=== PATIENT | female | born 1970 | race Caucasian/White ===

== ENCOUNTER → 2018-05-19 11:59 | Outpatient (CLI) | payer BC, SELFPAY ==
--- NOTE | 2018-05-19 12:04 | RAD_ITS ---
STUDY: X-RAY - LUMBAR SPINE REASON FOR EXAM: Female, 48 years old. Fell down steps on her bottom. TECHNIQUE: 5 view(s) of the lumbar spine were obtained. COMPARISON: Sacrum and coccyx, May 19, 2018. FINDINGS: Normal lumbar lordosis. There is no substantial scoliosis. There is a normal alignment of the vertebrae. Normal vertebral bodies and endplates. Normal disc space heights. There is no evidence of acute fracture or loss of vertebral axial height. There is no demonstrated spondylolysis of the pars interarticulares. The soft tissue structures are unremarkable. RAD/L/S Spine Min 4 Views IMPRESSION: No acute abnormality of the lumbar spine. Electronically Signed: Rafael Mccoy DO at 18:25 EDT Tel [phone], Service support ,
--- NOTE | 2018-05-19 12:04 | RAD_ITS ---
STUDY: X-RAY - SACRUM/COCCYX REASON FOR EXAM: Female, 48 years old. Fell down steps on her bottom. TECHNIQUE: 3 view(s) of the sacrum and coccyx were obtained. COMPARISON: None. FINDINGS: Normal bilateral sacroiliac joints. Normal visualized sacral ala and fused sacral bodies. Normal sacrococcygeal junction with a normal angulation. Normal coccygeal segments. There is no visualized fracture or dislocation. The presacral soft tissue structures are unremarkable. RAD/Sacrum-Coccyx min 2 Views IMPRESSION: No visualized sacral or coccygeal fracture. Electronically Signed: Rafael Mccoy DO at 15:39 EDT Tel [phone], Service support ,
== END ==
PROVIDERS: Family Provider Family Medicine; PCP Family Medicine; Visit Provider Family Medicine
DX: M53.3 Sacrococcygeal disorders, not elsewhere classified (principal)
CPT/HCPCS: 72110; 72220

== ENCOUNTER → 2018-07-18 11:54 | Outpatient (CLI) | payer BC, SELFPAY | PROVIDERS: Family Provider Family Medicine; PCP Family Medicine; Visit Provider Obstetrics & Gynecology | DX: Z12.31 Encounter for screening mammogram for malignant neoplasm of breast (principal) | CPT/HCPCS: 77063; 77067 ==

== ENCOUNTER → 2019-03-28 | Outpatient (CLI) | payer BC, SELFPAY ==
--- NOTE | 2019-03-28 11:38 | RAD_ITS ---
STUDY: X-RAY - RIGHT HAND REASON FOR EXAM: Female, 49 years old. Pain. TECHNIQUE: 3 view(s) of the hand. COMPARISON: None. FINDINGS: Normal radiocarpal articulation. Normal distal radioulnar joint. Normal visualized carpal bones. Normal carpal articulations Normal carpometacarpal articulation of the thumb. Normal second through fifth carpometacarpal joints. Normal metacarpi. Normal metacarpophalangeal joint of the thumb. Normal interphalangeal joint of the thumb. Normal proximal and distal phalanges of the thumb. Normal metacarpophalangeal joints of the second through fifth fingers. Normal proximal and distal interphalangeal joints of the second through fifth fingers. Normal phalanges of the second through fifth fingers. The soft tissue structures are unremarkable. There is no acute fracture. RAD/Hand Min 3 Views IMPRESSION: Normal x-ray examination of the hand. Electronically Signed: Vasile Dudley MD at 21:40 EDT , Service support ,
[2019-03-28 14:27] LABS: T4 Total, Thyroxin 9.9 ug/dL (4.8-13.9)
== END | disposition home or self-care (01) ==
LOC: MTLAB 11:36
PROVIDERS: Family Provider Family Medicine; PCP Family Medicine; Referring Provider Family Medicine; Visit Provider Family Medicine
DX: E03.9 Hypothyroidism, unspecified (principal); M79.641 Pain in right hand
CPT/HCPCS: 36415; 73130; 84436; 84443

== ENCOUNTER → 2019-08-23 | Outpatient (CLI) | payer BC, SELFPAY ==
--- NOTE | 2019-08-23 12:37 | BI_ITS ---
MAMMOGRAPHY - BILATERAL SCREENING REASON FOR EXAM: Female, 49 years old. Routine annual screening examination. PERTINENT HISTORY: Mother with breast cancer. Grandmother with breast cancer. Bilateral breast implants. TECHNIQUE: Digital bilateral breast renaldo (3D mammographic acquisition) in the CC and MLO projections. 2-D mediolateral oblique (MLO) and craniocaudad (CC) views of both breasts were obtained. CAD: Full Field Digital Mammography with Computer Added Detection was performed. COMPARISON: Comparison is made with prior study July 18, 2018 and July 06, 2017. FINDINGS: Breast Composition: There are scattered areas of fibroglandular density. There are no dominant masses or suspicious calcifications. Stable appearance of the bilateral implants as well as the small bilateral axillary lymph nodes. No other significant abnormalities are identified. There has been no significant change since the prior study. BI/SCREEN MAMM (CAD) W/RENALDO BILAT IMPRESSION: Stable bilateral screening mammogram. Yearly follow-up mammogram recommended. (A) ASSESSMENT CATEGORY: BIRADS Category 2: Benign. A letter regarding these results will be sent to the patient by the facility within 30 days. Approximately 10% of breast cancers are not detected by mammography. A normal mammogram should not delay biopsy of a clinically suspicious abnormality. [id number] Electronically Signed: Iván Davison, at 15:20 EDT , Service support ,
== END | disposition home or self-care (01) ==
PROVIDERS: Family Provider Family Medicine; PCP Family Medicine; Referring Provider Obstetrics & Gynecology; Visit Provider Obstetrics & Gynecology
DX: Z12.31 Encounter for screening mammogram for malignant neoplasm of breast (principal)
CPT/HCPCS: 77063; 77067

== ENCOUNTER → 2019-08-25 | Outpatient (CLI) | payer BC, SELFPAY ==
--- NOTE | 2019-08-25 17:46 | MRI_ITS ---
STUDY: MRI BRAIN WITH AND WITHOUT CONTRAST REASON FOR EXAM: Female, 49 years old. Increased tremors TECHNIQUE: Standardized multiplanar fat and water weighted pulse sequences were obtained. IV Dotarem 15 was administered for the contrast portion of the examination. COMPARISON: None. FINDINGS: Normal size of the ventricles and extra-axial spaces for the patient's age. Normal white matter tracts of the supratentorial brain. There is no evidence for recent intracranial ischemia or other cause of cytotoxic edema on diffusion weighted imaging (DWI). Normal bilateral basal ganglia. Normal thalami. There is no extra-axial fluid accumulation. Normal flow voids within the major intracranial circulation suggesting patency by spin echo criteria. Normal venous enhancement. There is no enhancing intra-axial or extra-axial abnormality. Normal sella turcica, pituitary gland, infundibular stalk, optic chiasm and hypothalamus. Normal tectal plate and pineal gland. Normal midbrain, kimmie and medulla. Normal cerebellum. Normal basal cisterns. Normal bilateral temporal bones. Normal bilateral internal auditory canals. No demonstrated orbital abnormality, within the constraints of a routine brain study. Normal visualized paranasal sinuses. Normal calvarium and skull base. Normal visualized soft tissue structures. Normal visualized upper cervical spine. MRI/Brain W/WO Contrast IMPRESSION: Normal unenhanced and enhanced MRI of the brain. Electronically Signed: Lamine Chicas MD at 20:10 EDT , Service support ,
== END | disposition home or self-care (01) ==
LOC: MRI 16:49
PROVIDERS: Family Provider Family Medicine; PCP Family Medicine; Referring Provider Psychiatry & Neurology Neurology; Visit Provider Psychiatry & Neurology Neurology
DX: R56.9 Unspecified convulsions (principal)
CPT/HCPCS: 70553; A9575

== ENCOUNTER → 2020-10-11 11:44 | Outpatient (CLI) | payer BC, SELFPAY ==
[2020-02-26 12:46] VITALS: BMI 27.6
--- NOTE | 2020-10-11 12:05 | BI_ITS ---
MAMMOGRAPHY - BILATERAL SCREENING REASON FOR EXAM: Female, 50 years old. Routine annual screening examination. PERTINENT HISTORY: Mother with breast cancer. Grandmother with breast cancer. Bilateral implants. TECHNIQUE: Digital bilateral breast renaldo (3D mammographic acquisition) in the CC and MLO projections. 2-D mediolateral oblique (MLO) and craniocaudad (CC) views of both breasts were obtained. CAD: Full Field Digital Mammography with Computer Added Detection was performed. COMPARISON: Comparison is made with prior study dated 08/23/2019 and 07/18/2018. FINDINGS: Breast Composition: There are scattered areas of fibroglandular density. There are no dominant masses or suspicious calcifications. Stable appearance of the bilateral breast implants. No other significant abnormalities are identified. There has been no significant change since the prior study. BI/SCREEN MAMM (CAD) W/RENALDO BILAT IMPRESSION: Stable bilateral screening mammogram. Yearly follow-up mammogram recommended. (A) ASSESSMENT CATEGORY: BIRADS Category 2: Benign. A letter regarding these results will be sent to the patient by the facility within 30 days. Approximately 10% of breast cancers are not detected by mammography. A normal mammogram should not delay biopsy of a clinically suspicious abnormality. [id number] Electronically Signed: Iván Davison, at 14:01 EST , Service support ,
== END ==
PROVIDERS: PCP Family Medicine; Referring Provider Obstetrics & Gynecology; Visit Provider Obstetrics & Gynecology
DX: Z12.31 Encounter for screening mammogram for malignant neoplasm of breast (principal)
CPT/HCPCS: 77063; 77067

== ENCOUNTER → 2020-11-04 10:23 | Outpatient (CLI) | payer BC, SELFPAY ==
[2020-02-26 12:46] VITALS: BMI 27.6
--- NOTE | 2020-11-04 10:28 | RAD_ITS ---
STUDY: X-RAY - CERVICAL SPINE REASON FOR EXAM: Female, 50 years old. Neck stiffness, pain x 1 year TECHNIQUE: 3 view(s) of the cervical spine were obtained. COMPARISON: None FINDINGS: Normal anterior atlantoaxial articulation. Normal odontoid process. There is straightening of the normal cervical lordosis. Disc space narrowing and spondylosis at the C5-C6 and C6-C7 levels. Normal disc space heights. Normal visualized intervertebral neuroforamina. The soft tissue structures are unremarkable. RAD/Cerv Spine 2 or 3 Views IMPRESSION: Disc space narrowing and spondylosis at the C5-C6 and C6-C7 levels. Electronically Signed: Iván Davison, at 15:48 EST , Service support ,
[2020-11-04 12:49] LABS: Hemoglobin A1c 5.4 % (3.8-5.6)
[2020-11-04 12:55] LABS: Anion Gap 4 (5-15); BUN 16 mg/dL (7-18); BUN/Creat Ratio 23.8 RATIO (10-20); Calcium,Total 8.6 mg/dL (8.5-10.1); Chloride 110 mmol/L (98-107); Cholesterol 150 mg/dL (200); Creatinine, Serum 0.67 mg/dL (0.55-1.02); EST Glomerular Filtration Rate 97 mL/min (>60); Est Glom Filt Rate - Afr Amer 118 mL/min (>60); Glucose 89 mg/dL (74-106); High Density Lipoprotein 31 mg/dL; Potassium 3.6 mmol/L (3.5-5.1); Sodium Level 142 mmol/L (136-145); T4 Free Direct 1.04 ng/dL (0.76-1.46); Thyroid Stim Hormone (TSH) 2.52 uIU/mL (0.358-3.74); Triglycerides 109 mg/dL; Very Low Density Lipoprotein 22 mg/dL (5-40)
== END ==
PROVIDERS: Internal Medicine Endocrinology, Diabetes & Metabolism; PCP Family Medicine; Referring Provider Nurse Practitioner Family; Visit Provider Nurse Practitioner Family
DX: M54.2 Cervicalgia (principal); R73.09 Other abnormal glucose; E03.8 Other specified hypothyroidism; E06.3 Autoimmune thyroiditis; Z13.220 Encounter for screening for lipoid disorders; Z13.228 Encounter for screening for other metabolic disorders
CPT/HCPCS: 36415; 72040; 80048; 80061; 83036; 84439; 84443

== ENCOUNTER 2020-11-20 06:43 | Day surgery (SDC) | payer BC, SELFPAY ==
[2020-02-26 12:46] VITALS: BMI 27.6
[2020-11-20] VITALS (8 sets, daily range): BP systolic 91–122; BP diastolic 51–86; PULSE 65–76; RESP 16–18; TEMP 36.1–37.1; O2SAT 96–100; BMI 29.7
[2020-11-20] MEDS: Lactated Ringers 1,000 ML 100 ML IV (07:25)
--- NOTE | 2020-11-20 07:52 | HP.PCM_ITS ---
History of Present Illness Date of Admission: 11/20/20 The patient is a 50 year old F presents for screening colonoscopy. Patient denies any history of previous colonoscopy. Patient states she has bowel movements every few days unsure how much fiber she gets in her diet. Patient denies any blood in her stool. Patient denies any chronic abdominal pain nausea or vomiting. Denies any immediate family with colon cancer does have a first cousin diagnosed may be in her/his 50s. Past Medical/Surgical History - Planned Operation Planned Operative Procedure/s: Colonoscopy Date of Operative Procedure: 11/20/20 Permit Signed: No S.O.S: No Is This Patient Having a Total Joint: No - Previous Hospitalizations/Surgeries HX Hospitalizations: Yes HX of Surgeries: x2. 2 foor surgeries. hyster. breast implants Any Problems With Anesthesia: No You/Your Family Experience Fever (Hyperthermia) With Anes: No Cholinesterase deficiency: No - Cardiovascular Hx Chest Pain within Last 2 months: No Hx of Irregular Heartbeat and/or Afib: No Hx Heart Attack: No Hx Congestive Heart Failure: No Hx Rheumatic Fever: No Hx Hypertension: No Hx Internal Defibrillator: No Hx Pacemaker: No Hx Cardiac Catheterization: No Hx Cardiac Surgery/Stents/Etc.: No Hx Stress Test: No HX Edema: No Hx Pain in Legs when Walking/Leg Cramps: No - Respiratory Chronic Cough: No HX of Shortness of Breath: No Hoarseness: No Hx Chronic Obstructive Pulmonary Disease (COPD): No Hx Asthma: No Hx Emphysema: No Hx Sleep Apnea: No CPAP: No BIPAP: No Hx Oxygen Use at Home: No Hx Respiratory Tract Infection/Cold (presently): No Do You Snore Loudly (louder than talking or can be heard): No Do You Often Feel Tired/ Fatigued/ Sleepy Dring Daytime?: No Has Anyone Observed You Stop Breathing During Sleep?: No Result (for STOP score): Negative Hx Smoking: No Smoking Status: Never smoker - Gastrointestinal Hx Gastroesophageal Reflux: Yes Controlled With Meds: Yes Hx Gastrointestinal Disorders: No Hx Gastrointestinal Bleed: No Hx Ulcer: No Hx Hiatal Hernia: No Difficulty Chewing/Swallowing: Yes - at times Recent Onset of Swallowing Problems: No Special diet followed at home: No Hx Unplanned Weight Loss of 20#: No HX Unplanned Weight Gain of 20#: No - Neurological Hx Seizures: No HX Syncope/Blackout Spells/Unconsciousness: No Hx CVA/Stroke: No Hx Transient Ischemic Attacks (TIA): No Hx Multiple Sclerosis: No Hx Parkinson's Disease: No Hx Head/Neck Injury: No Hx Headaches: No Hx Back Injury/Pain: No Recent Onset of Speech Difficulty: No Restless Legs: No Does patient have nerve stimulator: No Patient instructed to have device shut off: No Rep notified?: No - Blood Disorder Hx Leukemia: No Bleeding Tendencies: No Hx Deep Vein Thrombosis: No Hx High Cholesterol: Yes Blood Transmitted Disease: No Hx Hepatitis: No Hx Cirrhosis: No Hx Anemia: No Hx Blood Disorders: No - Reproduction : No Is Patient Lactating: No Hx Hysterectomy: Yes Hx Tubal Ligation: No Are You Post Menopause: No - Genitourinary Hx Renal Disease: No - Musculoskeletal Hx Arthritis: Yes - in neck Hx Rheumatoid Arthritis: No Hx Gout: No Recent Onset of an Orthopedic Problem: No - Endocrine Hx Diabetes: No Thyroid Disease: Yes Hx Steroid Therapy: No - Psycho/Social Hx Substance Use: No Hx Alcohol Use: Yes - occasional Hx Anxiety: Yes Hx Depression: No Mental Illness: No Hx Dementia: No - Miscellaneous Hx Cancer: Yes - skin ca to neck Recent Exposure to Contagious Disease: No Active MRSA: No Hx of C-Diff: No Any Loose Teeth: No Allergies No Known Allergies Allergy (Verified 11/20/20 07:14) - Discharge Is Pt Admitted From a [facility], or a Penitentiary: No After D/C, Where Do you Plan to Go: Return Home - Physical Exam Vitals/I&O's: Vital Signs Temp Pulse Resp BP Pulse Ox 98.8 F 69 18 122/86 H 96 11/20/20 07:16 11/20/20 07:16 11/20/20 07:16 11/20/20 07:16 11/20/20 07:16 Oxygen Delivery Method Room Air Weight: 162 lb 7.691 oz Body Mass Index (BMI) 29.7 General: Alert, Oriented x3, Cooperative, No apparent distress HEENT: Atraumatic Lungs: Normal air movement Cardiovascular: Regular rate Abdomen: Soft, Non Tender, Non-Distended Extremities: No clubbing, No cyanosis, No edema Neurological: Cranial nerves II-XII grossly intact Psych/Mental Status: Normal Affect Microbiology Past 72 Hours 11/18/20 13:20 Interface Orders SARS-CoV-2 Antigen (Rapid) - Final Current Medications Lactated Ringer's () 1,000 mls @ 100 mls/hr IV .Q10H [place] Last Admin: 11/20/20 07:25 Dose: 100 mls/hr Documented by: Assessment/Plan 50-year-old female screening for colon cancer Procedure Criteria Procedure Type: Elective COVID Risk Discussion: The surgeon/proceduralist and patient have discussed in detail the risk of exposure to and/or potential harm posed by the COVID-19 virus with having a surgery/procedure at this time versus the risk of delaying the surgery/procedure. It is not possible to know either the risk of delaying the surgery or procedure or chance of getting an infection with perfect accuracy, but a joint decision was made between the patient and the surgeon/proceduralist to proceed at this time with the scheduled surgery/procedure as indicated on the consent form. Surgery Risks - Colonoscopy I discussed with the patient the risks of the procedure: Yes Risks Include but are not Limited To: Risks include but are not limited to: Bleeding, perforation requiring further surgery, inability to complete colonoscopy requiring barium enema.
--- NOTE | 2020-11-20 08:36 | OP.COLON_ITS ---
Patient Name: Shannan Devi Procedure Date: 11/20/2020 7:57 AM Date of : 1970 Age: 50 Procedure: Colonoscopy Indications: Screening for colorectal malignant neoplasm Providers: Gabriella Moy MD Referring MD: Ana Laura Burk Medicines: Monitored Anesthesia Care Patient Profile: This is a 50 year old female. Last Colonoscopy: none. The patient's first colonoscopy is today. Complications: No immediate complications. Procedure: Pre-Anesthesia Assessment: - Prior to the procedure, a History and Physical was performed, and patient medications and allergies were reviewed. The patient's tolerance of previous anesthesia was also reviewed. The risks and benefits of the procedure and the sedation options and risks were discussed with the patient. All questions were answered, and informed consent was obtained. Prior Anticoagulants: The patient has taken no previous anticoagulant or antiplatelet agents. ASA Grade Assessment: Per anesthesia. After reviewing the risks and benefits, the patient was deemed in satisfactory condition to undergo the procedure. After I obtained informed consent, the scope was passed under direct vision. Throughout the procedure, the patient's blood pressure, pulse, and oxygen saturations were monitored continuously. The Colonoscope was introduced through the anus and advanced to the cecum, identified by the appendiceal orifice, ileocecal valve and palpation. The colonoscopy was technically difficult and complex due to a tortuous colon. Successful completion of the procedure was aided by using manual pressure. The patient tolerated the procedure well. The quality of the bowel preparation was good. Scope In: 8:03:09 AM Scope Withdrawal Time 0 hours 8 minutes 1 second Scope Out: 8:26:57 AM Total Procedure Duration Time 0 hours 23 minutes 48 seconds Findings: The perianal and digital rectal examinations were normal. The entire examined colon appeared normal on direct and retroflexion views. Impression: - The entire examined colon is normal on direct and retroflexion views. - No specimens collected. Recommendation: - Discharge patient to home. - Resume previous diet. - Continue present medications. - Repeat colonoscopy in 10 years for screening purposes. Procedure Code(s): --- Professional --- G0121, PT, Colorectal cancer screening; colonoscopy on individual not meeting criteria for high risk Diagnosis Code(s): --- Professional --- Z12.11, Encounter for screening for malignant neoplasm of colon CPT copyright 2017 [employer]. All rights reserved. The codes documented in this report are preliminary and upon traffic control flagger review may be revised to meet current compliance requirements. MD Gabriella Flores MD 11/20/2020 8:36:03 AM This report has been signed electronically. Number of Addenda: 0 Note Initiated On: 11/20/2020 7:57 AM
--- NOTE | 2020-11-20 08:36 | OP.CCLET_ITS ---
11/20/2020 Ana Laura Burk [address] [place] [address] Re : Colonoscopy procedure for Shannan Devi Dear Dr. Burk This procedure was performed on Friday, November 20, 2020. My impressions and recommendations are as follows: Impressions : - The entire examined colon is normal on direct and retroflexion views. - No specimens collected. Recommendations : - Discharge patient to home. - Resume previous diet. - Continue present medications. - Repeat colonoscopy in 10 years for screening purposes. My findings are described in the full procedure note, which is enclosed. If I can be of further assistance, please feel free to contact me at Doctor phone number(s): , Work: . Sincerely, MD Gabriella Flores MD 11/20/2020 8:36:03 AM This report has been signed electronically.
== END 2020-11-20 09:24 | disposition home or self-care (01) ==
LOC: EN 06:53 → AC 06:53
PROVIDERS: PCP Family Medicine; Referring Provider Family Medicine; Visit Provider Surgery
PROC: 0DJD8ZZ Inspection of Lower Intestinal Tract, Via Natural or Artificial Opening Endoscopic (ICD-10-PCS; CPT 45378; principal; 2020-11-20 07:55)
DX: Z12.11 Encounter for screening for malignant neoplasm of colon (principal); Z20.828 Contact with and (suspected) exposure to other viral communicable diseases; K21.9 Gastro-esophageal reflux disease without esophagitis; E78.00 Pure hypercholesterolemia, unspecified; M13.88 Other specified arthritis, other site; Z79.899 Other long term (current) drug therapy; Z85.828 Personal history of other malignant neoplasm of skin
CPT/HCPCS: 45378; 87426; C9803; J7120; J2405

== ENCOUNTER 2020-12-09 12:30 | Outpatient (RCR) | payer BC, OTHER, SELFPAY ==
[2020-02-26 12:46] VITALS: BMI 27.6
--- NOTE | 2020-11-11 13:58 | HP.PTEVAL ---
Patient's Visit Information ALEISHA GALVEZ is a 50 year old F referred to Physical Therapy by TORY [facility]arg[facility]se[facility] with a diagnosis of CERVICAL SPONDYLOSIS. Date of Evaluation: 11/11/20 Physical Therapist: Leonard Sanchez, PT, Cert MDT, OCS - Visit Plan Frequency: 2x /Week Duration: 4 Weeks Plan: PT INTERVENTIONS CERVICAL ROM,MECKENZIE EX'S,POSTURAL EX'S,MANUAL THERAPY STM/CERVICAL TRACTION,ICTX 15-22# X15MIN ,US/MHP - Subjective This 50 y/o female presents physical therapy left cervical pain. Patient has had cervical pain 2 years pain. Patient has noticed progressive loss of motion cerviacl spine with pain and stiffness. Seen Dr did x-rays DDD no MEDS recommended PT. Denies CHUNG/dizziness/nausea. Deneis parathesia/tingling occassional parathesia. Aggraveting factors turning,lifting with [place]. Alleviating factors ovecounter MEDS. Patient symptoms affects sleeping.Patient job demands and housework tasks affects pain. Patient has sen massage and chiropractor 1x /month. Patient symptoms affects QOL. VOCATION: [employer]. SOCIAL: single - Pain Bilateral Pain Intensity (Out of 10): 4 - Objective POSTURE: mild foward posture. PALPATION: tender C2-3. NEURO: intact ,denies parathesia/timgling ,C5-6-7. AROM:BUE WFL. MMT: 4/5,4-/5 shoulder. CERVICAL AROM: flexion min loss,lateral flexion/rotation mod loss pain left side. extension mod loss - Special Tests C/S Radiculapathy - Left Upper limb tension test: Negative C/S Radiculapathy - Right Upper limb tension test: Negative C/S Radiculapathy - Left Spurlings: Positive C/S Radiculapathy - Right Spurlings: Negative C/S Radiculapathy - Left Cervical distraction: Negative C/S Radiculapathy - Right Cervical distraction: Negative C/S Radiculapathy - Left Relief test: Negative Sharp Eron: Negative Vertebral Artery Test: Negative Alar Ligament Test: Negative Cervical Sitting: Protrusion - Mechanical Response: No effect Cervical Sitting: Protrusion - Symptoms During Testing: Increases Cervical Sitting: Protrusion - Symptoms After Testing: No worse Cervical Sitting: Retraction - Mechanical Response: No effect Cervical Sitting: Retraction - Symptoms During Testing: Increases Cervical Sitting: Retraction - Symptoms After Testing: No worse Cervical Sitting: Retraction-Extension - Mechanical Response: No effect Cerv Sitting: Retraction-Extension - Symptoms During Testing: Increases Cerv Sitting: Retraction-Extension - Symptoms After Testing: No worse Cervical Sitting: Sidebend Right - Mechanical Response: No effect Cervical Sitting: Sidebend Right - Symptoms During Testing: Increases Cervical Sitting: Sidebend Right - Symptoms After Testing: No worse Cervical Sitting: Sidebend Left - Mechanical Response: No effect Cervical Sitting: Sidebend Left - Symptoms During Testing: Increases Cervical Sitting: Sidebend Left - Symptoms After Testing: No worse Cervical Sitting: Rotation Right - Mechanical Response: No effect Cervical Sitting: Rotation Right - Symptoms During Testing: Increases Cervical Sitting: Rotation Right - Symptoms After Testing: No worse Cervical Sitting: Rotation Left - Mechanical Response: No effect Cervical Sitting: Rotation Left - Symptoms During Testing: Increases Cervical Sitting: Rotation Left - Symptoms After Testing: No worse Cervical Sitting: Flexion - Mechanical Response: No effect Cervical Sitting: Flexion - Symptoms During Testing: No effect Cervical Sitting: Flexion - Symptoms After Testing: No worse - Goals Goal 1:: I with HEP Goal Time Frame: 4-6 Weeks Goal 2:: Improve posture for ADL's and job demnmads. Goal Time Frame: 4-6 Weeks Goal 3:: Patient to improve cervical ROM for function of recovery witrh rota Goal Time Frame: 4-6 Weeks Goal 4:: Patient to decrease cervical pain by 50% or > to improve function and Goal Time Frame: 4-6 Weeks Goal 5:: Patient to improve neck owestry score by 5 points or > to improve QOL Goal Time Frame: 4-6 Weeks - Rehabilitation Potential Physical Therapy Diagnosis: This patient has cervical pain with decrease ROM cervical spine with pain left side,affects ADL's and job demands thus benifit from skilled PT Rehabilitation Potential: Good - Anticipated Interventions Patient/Client Instruction: Educate patient on: Condition, Plan of Care For the Purpose of:: To decrease pain, To increase ROM, To improve muscle performance and motor function, To increase tolerance to activity/condition/position, To improve ability of physical actions for home/community/work/leisure, To improve health of tissue, To decrease soft tissue restriction, To increase flexibility/ROM, To reduce risk of recurrence, To foster healthy habits, To improve ability to perform tasks related to life management Therapeutic Exercise to Include: Strength training, Body mechanics, Postural training, Flexibilty training, Active ROM, Leland Exercises For the Purpose of:: To decrease pain, To increase ROM, To improve muscle performance and motor function, To improve ability to perform ADL's, To increase tolerance to activity/condition/position, To improve ability of physical actions for home/community/work/leisure, To improve health of tissue, To decrease soft tissue restriction, To increase flexibility/ROM, To improve health and function, To improve ability to perform tasks related to life management Manual Therapy Techniques to Include: Mobilization Comment: CERVICAL TRACTION For the Purpose of:: To decrease pain, To increase ROM, To improve health of tissue, To decrease soft tissue restriction, To increase flexibility/ROM TENS: Yes IF ES: Yes Thermo therapy (hot pack): Yes Intermittent cervical traction: Yes - 15-# For the Purpose of:: To decrease pain, To increase ROM, To improve nutrient delivery to tissue, To increase oxygenation perfusion, To improve health of tissue, To decrease soft tissue restriction, To increase flexibility/ROM Thank you for the opportunity to evaluate your patient. For Medicare and Medicare HMO plans, please review the plan of care and approve it. It will need to be FAXED BACK to us at [phone] for Medicare purposes. For Medicare only, by signing this I certify the plan of care. Please let me know if there are questions or concerns regarding this plan of care. Physician Signature: Date:
--- NOTE | 2021-04-23 09:38 | HP.PT.NRP ---
ALEISHA Leal LITZY was seen in my office for initial evaluation on 11/11/20. The following Plan of Care was established for this patient: Initial Frequency: 2x /Week Initial Duration: 4 Weeks Patient/Client Instruction: Educate patient on: Condition, Plan of Care For the Purpose of:: To decrease pain, To increase ROM, To improve muscle performance and motor function, To increase tolerance to activity/condition/position, To improve ability of physical actions for home/community/work/leisure, To improve health of tissue, To decrease soft tissue restriction, To increase flexibility/ROM, To reduce risk of recurrence, To foster healthy habits, To improve ability to perform tasks related to life management Therapeutic Exercise to Include: Strength training, Body mechanics, Postural training, Flexibilty training, Active ROM, Leland Exercises For the Purpose of:: To decrease pain, To increase ROM, To improve muscle performance and motor function, To improve ability to perform ADL's, To increase tolerance to activity/condition/position, To improve ability of physical actions for home/community/work/leisure, To improve health of tissue, To decrease soft tissue restriction, To increase flexibility/ROM, To improve health and function, To improve ability to perform tasks related to life management Manual Therapy Techniques to Include: Mobilization Comment: CERVICAL TRACTION For the Purpose of:: To decrease pain, To increase ROM, To improve health of tissue, To decrease soft tissue restriction, To increase flexibility/ROM TENS: Yes IF ES: Yes Thermo therapy (hot pack): Yes Intermittent cervical traction: Yes - 15-22# For the Purpose of:: To decrease pain, To increase ROM, To improve nutrient delivery to tissue, To increase oxygenation perfusion, To improve health of tissue, To decrease soft tissue restriction, To increase flexibility/ROM This patient was last seen in our office . Pertinent comments regarding their Physical therapy will appear below: Patient seen for PT for cervical pain with postural ex's,cervical ROM and ICTX with patient doing well thus is d/c At this point I will be discontinuing this patient from physical therapy. I would be happy to see this patient again in the future if found appropriate by the physician. Thank you! Leonard Sanchez, PT, Cert MDT, OCS
== END 2020-12-09 19:00 | disposition home or self-care (01) ==
LOC: PT 12:30
PROVIDERS: PCP Family Medicine; Visit Provider Nurse Practitioner Family
DX: M47.812 Spondylosis without myelopathy or radiculopathy, cervical region (principal)
CPT/HCPCS: 97012; 97035; 97110; 97162

== ENCOUNTER → 2021-06-13 16:23 | Outpatient (CLI) | payer OTHER, SELFPAY ==
[2021-02-24 10:07] VITALS: BMI 29.3
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
== END ==
PROVIDERS: PCP Family Medicine; Referring Provider Family Medicine; Visit Provider Family Medicine
DX: S93.402A Sprain of unspecified ligament of left ankle, initial encounter (principal)
CPT/HCPCS: 73610

== ENCOUNTER 2021-07-24 13:30 | Outpatient (RCR) | payer OTHER, SELFPAY ==
[2021-02-24 10:07] VITALS: BMI 29.3
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
--- NOTE | 2021-07-24 14:12 | HP.PTDCSUM_ITS ---
It has been my pleasure to treat ALEISHA MCGHEE referred by Dr. Jeffery Fairchild MD, with the diagnosis of GRADE 2 ANKLE SPRAIN. for a total of 10 visit(s). Discharge Date: 07/24/21 Please see the following information for a summary of their discharge status. Subjective: PATIENT REPORTS SHE THINKS IT IS ALL BETTER BUT SHE HASN'T PUSHED IT TO THE LIMIT YET TO KNOW FOR SURE. L ankle Pain Intensity (Out of 10): 0 % Improvement: 99 Objective/Function: PATIENT WAS SEEN TODAY FOR RE-ASSESSMENT OF PROGRESS TOWARD THE SET PT GOALS AND THE NEED FOR FURTHER PHYSICAL THERAPY VS READINESS FOR DISCHARGE. ALL PT GOALS HAVE BEEN MET. UPON EXAM TODAY: PATIENT HAS FULL PAINFR EE ROM AND STRENGTH OF LEFT ANKLE. SHE IS ABLE TO SLS ON THE LEFT LE AND DO 3 SL HEEL RAISES. SHE IS ALSO ABLE TO SQUAT WITHOUT PAIN. Goal 1:: PATIENT WILL BE INDEP AND SAFE WITH GAIT ON LEVEL SURFACES AND UP AND DOWN STEPS WITH DECREASED DEVIATIONS. Goal Progress: Goal Met Goal 2:: INCREASE FUNCTIONAL ROM OF ANKLE TO FULL TO EASE ADL'S Goal Progress: Goal Met Goal 3:: INCREASE FUNCTIONAL STRENGTH OF L ANKLE TO NORMAL TO ASSIST IN RETURN TO PRIOR LEVEL OF FUNCTION Goal Progress: Goal Met Goal 4:: PATIENT WILL BE INDEP WITH A HEP. Goal Progress: Goal Met Plan: D/C TO HEP. PATIENT IS AGREEABLE. If there are questions or concerns regarding this patient's physical therapy, please feel free to call me at [phone]. Thank you for the referral of this patient. Sincerely, iGnny Ko, PT, Cert MDT Balance/Gait/Functional tests - Balance/Special Test Scores Lower Extremity Functional Score: 75
== END 2021-07-24 15:07 | disposition home or self-care (01) ==
LOC: PT 13:30
PROVIDERS: PCP Family Medicine; Referring Provider Family Medicine; Visit Provider Family Medicine
DX: S93.409D Sprain of unspecified ligament of unspecified ankle, subsequent encounter (principal); X58.XXXD Exposure to other specified factors, subsequent encounter
CPT/HCPCS: 97110; 97161; 97164; 97530

== ENCOUNTER 2021-07-31 13:22 | Outpatient (RCR) | payer SELFPAY ==
--- NOTE | 2021-11-11 12:25 | HP.PT.NRP ---
ALEISHA MCGHEE was seen in my office for initial evaluation on . The following Plan of Care was established for this patient: This patient was last seen in our office 07/31/21. Pertinent comments regarding their Physical therapy will appear below: Pt. was seen in PT for self pay DN. Pt. has not been seen in several months and will be DC from PT at this point in time. At this point I will be discontinuing this patient from physical therapy. I would be happy to see this patient again in the future if found appropriate by the physician. Thank you! Porfirio Calix, ROMIT
== END 2021-07-31 19:00 | disposition home or self-care (01) ==
LOC: PT 13:22
PROVIDERS: PCP Family Medicine
DX: R69 Illness, unspecified (principal)

== ENCOUNTER 2022-03-02 09:18 | Outpatient (CLI) | payer BC, SELFPAY ==
--- NOTE | 2022-03-02 09:23 | RAD_ITS ---
STUDY: X-RAY - LEFT HAND REASON FOR EXAM: Female, 52 years old. Hand pain. TECHNIQUE: 3 view(s) of the hand. COMPARISON: None. FINDINGS: Osteopenia. Mild arthrosis of the radiocarpal articulation. Mild arthrosis of the radioulnar articulation. Moderate arthrosis of the radiocarpal row. Moderate arthrosis of the first CMC joint. Mild arthrosis of the MCP and IP joints. The soft tissue structures are unremarkable. RAD/Hand Min 3 Views IMPRESSION: Osteopenia with diffuse osteoarthritic changes, most marked at the first CMC joint. No acute abnormality, chondrocalcinosis, erosive changes or periostitis. Electronically Signed: Kameron Collier MD at 9:58 EDT ,
[2022-03-02 15:14] LABS: Erythrocyte Sedimentation Rate 8 mm/hr (0-30)
[2022-03-02 15:15] LABS: Hematocrit 46.6 % (37-47); Hemoglobin 15.7 g/dL (12.0-15.0); Mean Corp Hgb Conc 33.7 g/dL (32-36); Mean Corpuscular Hgb 32.3 pg (27.0-32.0); Mean Corpuscular Volume 95.9 fL (81-99); Mean Platelet Vol. 10.3 fl (6.2-12.0); Platelet Count 325 K/mm3 (150-450); RBC Distribution Width SD 42.5 fl (35.1-43.9); Red Blood Count 4.86 M/mm3 (4.2-5.4); White Blood Count 7.6 K/mm3 (4.4-11.0)
[2022-03-02 15:59] LABS: Vitamin B12 653 pg/mL (211-911); Vitamin D,25 Hydroxy 55.3 ng/mL
[2022-03-02 16:16] LABS: T4 Free Direct 1.19 ng/dL (0.76-1.46); Thyroid Stim Hormone (TSH) 3.04 uIU/mL (0.358-3.74)
[2022-03-02 16:23] LABS: CRP < 2.90 mg/L (0.0-3.0); Rheumatoid Factor < 10.0 IU/mL (<15)
[2022-03-04 20:17] LABS: ANTINUCLEAR ANTIBODIES DIRECT Negative (Negative)
[2022-03-11 10:45] LABS: HLA B27 Negative (.)
== END 2022-03-02 23:59 | disposition home or self-care (01) ==
PROVIDERS: Internal Medicine Endocrinology, Diabetes & Metabolism; PCP Family Medicine; Referring Provider Family Medicine; Visit Provider Family Medicine
DX: M79.642 Pain in left hand (principal); E89.0 Postprocedural hypothyroidism; R20.2 Paresthesia of skin; M47.812 Spondylosis without myelopathy or radiculopathy, cervical region
CPT/HCPCS: 36415; 73130; 81374; 82306; 82607; 84439; 84443; 85027; 85652; 86038; 86140; 86431

== ENCOUNTER 2022-03-13 07:45 | Outpatient (CLI) | payer BC, SELFPAY ==
--- NOTE | 2022-03-13 08:10 | MRI_ITS ---
EXAM: MR CERVICAL SPINE WITHOUT INTRAVENOUS CONTRAST CLINICAL INDICATION: RADICULOPATHY CERVICAL REGION pain in the neck and left arm TECHNIQUE: Multiplanar and multisequence MR images of the cervical spine without intravenous contrast were performed. This report was created using Profilepasser report Crispify technology. COMPARISON: None. FINDINGS: VERTEBRAE: See below. SPINAL CORD: Unremarkable in signal and morphology. SOFT TISSUES: Unremarkable. No prevertebral soft tissue swelling. LYMPH NODES: Unremarkable. There is no cervical adenopathy. DISCS/SPINAL CANAL/NEURAL FORAMINA: C2-C3: Unremarkable. Normal disc height and morphology. Normal spinal canal. Normal neuroforamina. C3-C4: Unremarkable. Normal disc height and morphology. Normal spinal canal. Normal neuroforamina. C4-C5: C4-5: Loss of intervertebral disc height. There is endplate spondylosis of the vertebral body. Right paracentral disc herniation. Mild impression upon anterior thecal sac. Mild spinal stenosis. There is bilateral facet arthropathy. Normal neuroforamina. C5-C6: C5-6: Loss of intervertebral disc height. There is endplate spondylosis of the vertebral body. Right paracentral disc herniation. Mild impression upon anterior thecal sac. Mild spinal stenosis. There is bilateral facet arthropathy. Right neural foraminal stenosis. Discogenic endplate changes. C6-C7: C6-7: Loss of intervertebral disc height. There is endplate spondylosis of the vertebral body. There is a central disc herniation. Mild impression upon anterior thecal sac. Mild spinal stenosis. There is bilateral facet arthropathy. Normal neuroforamina. C7-T1: Unremarkable. Normal disc height and morphology. Normal spinal canal. Normal neuroforamina. MRI/Spine Cervical (Routine) IMPRESSION: 1. C4-5: Loss of intervertebral disc height. There is endplate spondylosis of the vertebral body. Right paracentral disc herniation. Mild impression upon anterior thecal sac. Mild spinal stenosis. There is bilateral facet arthropathy. 2. C5-6: Loss of intervertebral disc height. There is endplate spondylosis of the vertebral body. Right paracentral disc herniation. Mild impression upon anterior thecal sac. Mild spinal stenosis. There is bilateral facet arthropathy. Right neural foraminal stenosis. Discogenic endplate changes. 3. C6-7: Loss of intervertebral disc height. There is endplate spondylosis of the vertebral body. There is a central disc herniation. Mild impression upon anterior thecal sac. Mild spinal stenosis. There is bilateral facet arthropathy. Electronically Signed: Oliver Allen MD at 21:26 EDT ,
== END 2022-03-13 23:59 | disposition home or self-care (01) ==
LOC: MRI 07:45
PROVIDERS: PCP Family Medicine; Referring Provider Chiropractor; Visit Provider Chiropractor
DX: M54.12 Radiculopathy, cervical region (principal)
CPT/HCPCS: 72141

== ENCOUNTER → 2022-05-15 | Outpatient (CLI) | payer BC, SELFPAY ==
--- NOTE | 2022-05-15 10:34 | NEURO_ITS ---
NCS and/or EMG Patient Report Ordering Doctor: José Suarez DATE OF SERVICE: 05/15/22 Indication: Numbness and tingling along the lateral aspect of the right arm intermittently. Left palm and wrist pain. Chronic neck pain with associated headaches. Findings: Nerve conduction studies were performed in the right and left upper extremity. The right median motor study recording the abductor pollicis brevis showed a normal amplitude, normal distal latency and normal conduction velocity. The right ulnar motor study recording the abductor digiti minimi showed a normal amplitude, normal distal latency and normal conduction velocity. No conduction block or focal slowing was present across the elbow. The right median sensory response recording digit two showed a normal amplitude, latency and conduction velocity. The right ulnar sensory response recording digit five showed a normal amplitude, latency and conduction velocity. The right radial sensory response recording over the extensor snuff box showed a normal amplitude, latency and conduction velocity. As the sensory symptoms of a C6-7 radiculopathy are similar to those of median entrapment at the wrist, additional internal comparison studies were done to help exclude a possible median neuropathy at the wrist. Right median-ulnar lumbrical / interosseous motor latencies showed a borderline difference. The left median motor study recording the abductor pollicis brevis showed a normal amplitude, normal distal latency and normal conduction velocity. The left ulnar motor study recording the abductor digiti minimi showed a normal amplitude, normal distal latency and normal conduction velocity. No conduction block or focal slowing was present across the elbow. Left median minimal F wave latencies were normal. Left ulnar minimal F wave latencies were normal. The median minimum F wave latency was not prolonged compared to the ulnar. The left median sensory response recording digit two showed a normal amplitude, latency and conduction velocity. The left ulnar sensory response recording digit five showed a normal amplitude, latency and conduction velocity. The left radial sensory response recording over the extensor snuff box showed a normal amplitude, latency and conduction velocity. Left median ulnar lumbrical / interosseous motor latencies showed no significant difference. Needle EMG of the right upper extremity and cervical paraspinal muscles was performed. No denervation was seen in any muscle. Motor units in the right t riceps were large amplitude, long duration with normal phases and reduced recruitment. Motor units in the flexor carpi radialis were borderline large. All other motor unit morphology, activation and recruitment patterns were normal. Needle EMG of the left upper extremity and cervical paraspinal muscles was performed. No denervation was seen in any muscle. All motor unit morphology, activation and recruitment patterns were normal. Impression: This is a mild abnormal study. There is electrophysiologic evidence suggestive of a chronic, right, C7 radiculopathy without active features. There is no evidence of cervical radiculopathy in the left upper extremity. Please note: the electrodiagnosis of radiculopathy is made on the basis of excluding peripheral nerve lesions on nerve conduction studies and the needle EMG demonstrating denervation and/or reinnervation in the distribution of one or more nerve roots (i.e., acute and/or chronic axonal loss). Thus, electrodiagnostic studies are insensitive in detecting radiculopathy in the absence of axonal loss (e.g., in the setting of compression resulting in intermittent ischemia or mechanical deformation; or demyelination without axonal loss). Finally, there is no evidence of superimposed entrapment neuropathy in either the right or left upper extremity. John Bauer D.O. Procedures Neurology CF Procedures [id number]: [id number] Musc test done w/n test comp (interp) (Qty:2)
== END | disposition home or self-care (01) ==
LOC: PSN 08:57
PROVIDERS: PCP Family Medicine; Referring Provider Orthopaedic Surgery; Visit Provider Orthopaedic Surgery
DX: M47.22 Other spondylosis with radiculopathy, cervical region (principal); R20.2 Paresthesia of skin
CPT/HCPCS: 95886; 95913

== ENCOUNTER → 2022-06-03 | Outpatient (CLI) | payer BC, SELFPAY ==
--- NOTE | 2022-06-03 12:45 | BI_ITS ---
MAMMOGRAPHY - BILATERAL SCREENING REASON FOR EXAM: Female, 52 years old. Routine annual screening examination. PERTINENT HISTORY: Mother with breast cancer. Grandmother with breast cancer. Bilateral breast implants. TECHNIQUE: Digital bilateral breast renaldo (3D mammographic acquisition) in the CC and MLO projections. 2-D mediolateral oblique (MLO) and craniocaudad (CC) views of both breasts were obtained. CAD: Full Field Digital Mammography with Computer Added Detection was performed. COMPARISON: Comparison is made with prior study dated 10/11/2020 and 08/23/2019. FINDINGS: Breast Composition: There are scattered areas of fibroglandular density. There are no dominant masses or suspicious calcifications. Stable appearance of the bilateral breast implants. No other significant abnormalities are identified. There has been no significant change since the prior study. BI/SCRN MAMM (CAD)W/RENALDO BILAT IMPRESSION: Stable bilateral screening mammogram. Yearly follow-up mammogram recommended. (A) ASSESSMENT CATEGORY: BIRADS Category 2: Benign. A letter regarding these results will be sent to the patient by the facility within 30 days. Approximately 10% of breast cancers are not detected by mammography. A normal mammogram should not delay biopsy of a clinically suspicious abnormality. [id number] Electronically Signed: Iván Davison MD at 13:48 EDT ,
== END | disposition home or self-care (01) ==
LOC: OPBI 12:44
PROVIDERS: PCP Family Medicine; Referring Provider Nurse Practitioner Women's Health; Visit Provider Nurse Practitioner Women's Health
DX: Z12.31 Encounter for screening mammogram for malignant neoplasm of breast (principal); Z80.3 Family history of malignant neoplasm of breast; Z98.82 Breast implant status
CPT/HCPCS: 77063; 77067

== ENCOUNTER → 2022-09-03 | Outpatient (CLI) | payer BC, SELFPAY | END | disposition home or self-care (01) | PROVIDERS: PCP Family Medicine; Visit Provider Family Medicine | DX: R30.0 Dysuria (principal) | CPT/HCPCS: 87086; 87088 ==

== ENCOUNTER → 2023-03-02 | Outpatient (CLI) | payer BC, SELFPAY ==
[2023-03-02 15:23] LABS: Absolute Lymphocyte Count 2.36 X10^3/uL (0.83-4.51); Absolute Neutrophil Count 3.4 X10^3/uL (2.0-7.7); Basophil# 0.04 X10^3/uL; Basophil% 0.6 % (0-1); Eosinophil# 0.18 X10^3/uL; Eosinophils% 2.8 % (0-5); Hematocrit 41.1 % (37-47); Hemoglobin 13.7 g/dL (12.0-15.0); Lymphocyte # 2.36 X10^3/ul (0.83-4.51); Lymphocyte % 36.1 % (19-41); Mean Corp Hgb Conc 33.3 g/dL (32-36); Mean Corpuscular Hgb 31.7 pg (27.0-32.0); Mean Corpuscular Volume 95.1 fL (81-99); Mean Platelet Vol. 10.2 fl (6.2-12.0); Monocyte% 7.7 % (0-10); NRBC Flagged by Analyzer 0 % (0-5); Neutrophil # 3.43 X10^3/uL (2.7-7.7); Neutrophil % 52.5 % (47-70); Platelet Count 296 K/mm3 (150-450); RBC Distribution Width CV 12.3 % (11.6-14.6); RBC Distribution Width SD 42.7 fl (35.1-43.9); Red Blood Count 4.32 M/mm3 (4.2-5.4); White Blood Count 6.5 K/mm3 (4.4-11.0)
[2023-03-02 15:38] LABS: Follicle Stimulating Hormone 61.1 mIU/mL; Luteinizing Hormone 49.9 mIU/mL; T4 Free Direct 1.03 ng/dL (0.76-1.46); Thyroid Stim Hormone (TSH) 0.54 uIU/mL (0.358-3.74)
== END | disposition home or self-care (01) ==
LOC: MTLAB 13:55
PROVIDERS: PCP Family Medicine; Referring Provider Internal Medicine Endocrinology, Diabetes & Metabolism; Visit Provider Internal Medicine Endocrinology, Diabetes & Metabolism
DX: E89.0 Postprocedural hypothyroidism (principal); R23.2 Flushing
CPT/HCPCS: 36415; 83001; 83002; 84439; 84443; 85025

== ENCOUNTER → 2023-06-21 | Outpatient (CLI) | payer BC, SELFPAY ==
--- NOTE | 2023-06-21 15:03 | BI_ITS ---
MAMMOGRAPHY - BILATERAL SCREENING REASON FOR EXAM: Female, 53 years old. Routine annual screening examination. PERTINENT HISTORY: Mother with breast cancer. Grandmother with breast cancer. History of bilateral breast implants. TECHNIQUE: Digital bilateral breast renaldo (3D mammographic acquisition) in the CC and MLO projections. 2-D mediolateral oblique (MLO) and craniocaudad (CC) views of both breasts were obtained. CAD: Full Field Digital Mammography with Computer Added Detection was performed. COMPARISON: Comparison is made with prior study dated June 03, 2022 and October 11, 2020. FINDINGS: Breast Composition: There are scattered areas of fibroglandular density. There are no dominant masses or suspicious calcifications. Stable appearance of the bilateral breast implants. Stable small benign appearing bilateral axillary nodes. No other significant abnormalities are identified. There has been no significant change since the prior study. BI/SCRN MAMM (CAD)W/RENALDO BILAT IMPRESSION: Stable bilateral screening mammogram. Yearly follow-up mammogram recommended. (A) ASSESSMENT CATEGORY: BIRADS Category 2: Benign. A letter regarding these results will be sent to the patient by the facility within 30 days. Approximately 10% of breast cancers are not detected by mammography. A normal mammogram should not delay biopsy of a clinically suspicious abnormality. [id number] Electronically Signed: Iván Davison MD at 15:59 EDT ,
== END | disposition home or self-care (01) ==
LOC: OPBI 15:02
PROVIDERS: PCP Family Medicine; Referring Provider Obstetrics & Gynecology; Visit Provider Obstetrics & Gynecology
DX: Z12.31 Encounter for screening mammogram for malignant neoplasm of breast (principal); Z80.3 Family history of malignant neoplasm of breast
CPT/HCPCS: 77063; 77067

== ENCOUNTER → 2024-02-28 | Outpatient (CLI) | payer BC, SELFPAY ==
[2024-02-28 17:31] LABS: T4 Free Direct 0.99 ng/dL (0.76-1.46); Thyroid Stim Hormone (TSH) 0.69 uIU/mL (0.358-3.74)
== END | disposition home or self-care (01) ==
LOC: LAB 16:23
PROVIDERS: PCP Family Medicine; Referring Provider Internal Medicine Endocrinology, Diabetes & Metabolism; Visit Provider Internal Medicine Endocrinology, Diabetes & Metabolism
DX: E89.0 Postprocedural hypothyroidism (principal); Z78.0 Asymptomatic menopausal state
CPT/HCPCS: 36415; 84439; 84443

== ENCOUNTER → 2024-03-29 | Outpatient (CLI) | payer BC, SELFPAY ==
--- NOTE | 2024-03-29 14:56 | BD_ITS ---
STUDY: DUAL ENERGY X-RAY ABSORPTIOMETRY / DXA REASON FOR EXAM: Female, 54 years old. Screening TECHNIQUE: Bone Mineral Density (BMD) measurements of lumbar spine and bilateral hips were obtained. COMPARISON: None. FINDINGS: Lumbar Spine (L1-L4): g/cm2 (0.893) / T-score (-1.4) / Z-score (-0.3) Findings are suggestive of osteopenia with a low fracture risk. Left Femur Total: g/cm2 (0.757) / T-score (-1.5) / Z-score (-0.8) Left Femoral Neck: g/cm2 (0.578) / T-score (-2.4) / Z-score (-1.3) Right Femur Total: g/cm2 (0.716) / T-score (-1.8) / Z-score (-1.1) Right Femoral Neck: g/cm2 (0.552) / T-score (-2.7) / Z-score (-1.6) BD/Dexa Bone Density Study IMPRESSION: The patient is considered osteoporotic as outlined below according to World Iggy Organization (WHO) criteria with a high fracture risk. Reference Information: The T-score is the number of standard deviations above or below the standard which is normal for young adults at their peak bone mineral density. The World Health Organization (WHO) interprets the T-scores as follows: Above -1 Normal bone density Between -1 and -2.5 Osteopenia Equal to / or below -2.5 Osteoporosis As a practical clinical guideline, osteopenia may be graded as follows: Mild -1 through -1.5 Moderate -1.6 through -2.0 Severe -2.1 through -2.4 The Z-score is the number of standard deviations above or below age-matched controls. A Z-score of less than -1.5 would be considered abnormal. References: 1. NIH Osteoporosis and Related Bone Diseases www osteo.org 2. International Society for Clinical Densitometry www iscd.org 3. National Osteoporosis Foundation www nof.org Electronically Signed: Iván Davison MD at 8:30 EDT ,
== END | disposition home or self-care (01) ==
PROVIDERS: PCP Family Medicine; Referring Provider Internal Medicine Endocrinology, Diabetes & Metabolism; Visit Provider Internal Medicine Endocrinology, Diabetes & Metabolism
DX: E89.0 Postprocedural hypothyroidism (principal); Z78.0 Asymptomatic menopausal state
CPT/HCPCS: 77080

== ENCOUNTER → 2024-06-21 | Outpatient (CLI) | payer BC, SELFPAY ==
--- NOTE | 2024-06-21 | IMM_PTH ---
PATIENT: ALEISHA WITT LOC: [facility] U#:[id number] AGE/SX: 54/F ROOM: RE06/21/[address]: Dr. Ana Laura Burk MD : 1970 BED: DIS: 06/21/2024 SPEC #: [id number] RECD: 06/23/24 13:21 STATUS: PILAR REDoroteo #: [id number] LEEANNE: 06/21/24 00:[address]: Ana Laura Burk DEPT: IMMUNOHISTOCHEMISTRY RECD BY: Acosta Muñiz Tissues: Vulva, NOS Procedures: p16 (initial) KI-67 (add) PHYSICIAN & INSTITUTION [place] [address] SPECIMEN INFORMATION: Tissue Source: Right vulvar Clinical Info: Vulvar biopsy Specimen Number: [id number] CPT code: 09648,02040 METHODOLOGY: Deparaffinized sections of prefer/formalin-fixed tissue or PAP/DQ stained slides are incubated with monoclonal/polyclonal antibodies/oligonucleotide probes. Localization is made via biotin free immunoperoxidase method. Appropriate controls are performed and reacted as expected. Results on target cell population are indicated in the following table: RESULTS: ANTIBODY / CLONE RESULT P16 (E6H4) positive, focal patchy staining Ki-67 (30-9) positive, low These tests were developed and their performance characteristics determined by [facility]. They may not have been cleared or approved by the U.S. Food and Drug Administration. The FDA has determined that such clearance or approval is not necessary. The above immunohistochemical/dualISH markers are ordered and reviewed by the Pathologist. INTERPRETATION: Vulvar biopsy: Consistent with markedly inflamed condyloma. Case has been reviewed in consultation with Dr. Lackey who concurs with the above diagnosis. IDC:MIGUEL ÁNGEL MCGINNIS/ 06/26/2024
--- NOTE | 2024-06-21 16:00 | VUL_PTH ---
PATIENT: ALEISHA WITT LOC: [facility] U#:[id number] AGE/SX: 54/F ROOM: RE06/21/[address]: Dr. Ana Laura Burk MD : 1970 BED: DIS: 06/21/2024 SPEC #: [id number] RECD: 06/21/24 17:33 STATUS: PILAR ALEXIS #: [id number] LEEANNE: 06/21/24 16:[address]: Kandy Disla DEPT: SURGICAL PATHOLOGY RECD BY: Ismael Camargo ENTERED: 06/22/24 08:07 SP TYPE: VULVA BX OTHR DR: Dr. Ana Laura Burk MD Tissues: Vulva, NOS Procedures: Surgery Specimen Level IV HEADER OPERATION: Vulvar biopsy PRE-OP DIAGNOSIS: Vulvar biopsy TISSUE SUBMITTED: Right vulvar MICROSCOPIC DIAGNOSIS Right vulvar lesion, biopsy: Consistent with markedly inflamed condyloma. See comment. RAS/ 06/23/2024 COMMENT Immunohistochemistry ([id number]) for surrogate HPV marker (p16) supports the above diagnosis. Marked acute and chronic inflammation and granulation tissue reaction is noted. Special stain for fungi is negative for organisms; matched controls are appropriate. Correlation with clinical findings and appropriate follow up are necessary. Case has been reviewed in consultation with Dr. Lackey who concurs with the above diagnosis. IDC:AM MICROSCOPIC DESCRIPTION Slides are reviewed. GROSS DESCRIPTION Received is one container labeled with the patient's name and not further designated. The specimen consists of a fragment of coleman-white skin measuring 0.3 x 0.2 x 0.1cm. The entire specimen is submitted in one cassette. / 06/22/2024 TC:3 CPT:89199
== END | disposition home or self-care (01) ==
LOC: LABSPEC 17:35
PROVIDERS: PCP Family Medicine; Visit Provider Family Medicine
DX: A63.0 Anogenital (venereal) warts (principal)
CPT/HCPCS: 88305; 88341; 88342

== ENCOUNTER → 2024-09-15 | Outpatient (CLI) | payer BC, SELFPAY ==
--- NOTE | 2024-09-15 14:57 | BI_ITS ---
MAMMOGRAPHY - BILATERAL SCREENING REASON FOR EXAM: Female, 54 years old. Routine annual screening examination. PERTINENT HISTORY: Mother with breast cancer. Grandmother with breast cancer. History of bilateral breast implants. TECHNIQUE: Digital bilateral breast renaldo (3D mammographic acquisition) in the CC and MLO projections. 2-D mediolateral oblique (MLO) and craniocaudad (CC) views of both breasts were obtained. CAD: Full Field Digital Mammography with Computer Added Detection was performed. COMPARISON: Comparison is made with prior study dated June 21, 2023 and June 03, 2022. FINDINGS: Breast Composition: There are scattered areas of fibroglandular density. There are no dominant masses or suspicious calcifications. Stable appearance of the bilateral breast implants. Stable small bilateral fat containing axillary lymph nodes. No other significant abnormalities are identified. There has been no significant change since the prior study. BI/SCRN MAMM (CAD)W/RENALDO BILAT IMPRESSION: Stable bilateral screening mammogram. Yearly follow-up mammogram recommended. (A) ASSESSMENT CATEGORY: BIRADS Category 2: Benign. A letter regarding these results will be sent to the patient by the facility within 30 days. Approximately 10% of breast cancers are not detected by mammography. A normal mammogram should not delay biopsy of a clinically suspicious abnormality. [id number] Electronically Signed: Iván Davison MD at 10:58 EDT ,
== END | disposition home or self-care (01) ==
LOC: OPBI 14:56
PROVIDERS: PCP Family Medicine; Referring Provider Obstetrics & Gynecology; Visit Provider Obstetrics & Gynecology
DX: Z12.31 Encounter for screening mammogram for malignant neoplasm of breast (principal); Z80.3 Family history of malignant neoplasm of breast
CPT/HCPCS: 77063; 77067

== ENCOUNTER → 2024-12-26 | Outpatient (CLI) | payer BC, SELFPAY ==
--- NOTE | 2024-12-26 14:02 | RAD_ITS ---
PROCEDURE: CHEST PA AND LATERAL TECHNIQUE: Three-view PA and lateral chest. COMPARISON: None provided. RAD/Chest PA and Lateral IMPRESSION: Qcmg-lq-[id number] right hemidiaphragm elevation is seen. Mild linear scarring is seen at the left lung base. Lungs appear clear of acute disease. No pleural effusion or pneumothorax is noted. The cardiomediastinal silhouette is within the expected range for age. No evid ence of cardiomegaly. Jvvq-la-atslrmfz degenerative changes of the thoracic spine are seen. No evidence of acute cardiopulmonary disease. Reading Location: [id number]
== END | disposition home or self-care (01) ==
PROVIDERS: PCP Family Medicine; Referring Provider Physician Assistant; Visit Provider Physician Assistant
DX: R05.9 Cough, unspecified (principal); R50.9 Fever, unspecified
CPT/HCPCS: 71046

== ENCOUNTER → 2025-02-28 | Outpatient (CLI) | payer BC, SELFPAY ==
[2025-02-28 18:34] LABS: ALB/GLOB Ratio 1.7 RATIO (0.9-2.4); AST(SGOT) 23 U/L (<=31); Alanine Aminotransfer ALT/SGPT 12 U/L (<=34); Albumin, Serum 4.3 g/dL (3.5-5.0); Alkaline Phosphatase 91 U/L (35-104); Anion Gap 10 (5-15); BUN 11 mg/dL (4-19); BUN/Creat Ratio 17.9 RATIO (10-20); Calcium,Total 9.5 mg/dL (7.6-11.0); Carbon Dioxide 27.9 mmol/L (21.0-32.0); Chloride 105 mmol/L (98-108); EST Glomerular Filtration Rate 105 (>60); Globulin 2.6 g/dL (2.2-4.2); Glucose 97 mg/dL (70-99); Potassium 3.7 mmol/L (3.3-5.1); Protein, Total 6.9 g/dL (5.9-8.4); Sodium Level 143 mmol/L (133-145); Thyroid Stim Hormone (TSH) 0.625 uIU/mL (0.300-4.200); Total Bilirubin 0.19 mg/dL (0.00-1.30); Vitamin D,25 Hydroxy 41.6 ng/mL (30-100)
== END | disposition home or self-care (01) ==
LOC: MTLAB 15:19
PROVIDERS: PCP Family Medicine; Referring Provider Internal Medicine Endocrinology, Diabetes & Metabolism; Visit Provider Internal Medicine Endocrinology, Diabetes & Metabolism
DX: E89.0 Postprocedural hypothyroidism (principal)
CPT/HCPCS: 36415; 80053; 82306; 84439; 84443

== ENCOUNTER → 2025-03-16 | Outpatient (CLI) | payer BC, SELFPAY ==
--- NOTE | 2025-03-16 | LES_PTH ---
PATIENT: ALEISHA WITT [facility] U#:[id number] AGE/SX: 55/F ROOM: RE03/16/[address]: Dr. Kandy Disla MD : 1970 BED: DIS: 03/16/2025 SPEC #: [id number] RECD: 03/19/25 09:39 STATUS: PILAR REDoroteo #: [id number] LEEANNE: 03/16/25 00:[address]: Kandy Disla DEPT: SURGICAL PATHOLOGY RECD BY: Acosta Muñiz ENTERED: 03/19/25 09:39 SP TYPE: Lesion OTHR DR: Dr. Ana Laura Burk MD Tissues: A - Skin of vulva Procedures: Immunohistochemical Stains Surgery Specimen Level IV HEADER OPERATION: Vulvar biopsy PRE-OP DIAGNOSIS: Vulvar lesion, vulvar dermatitis TISSUE SUBMITTED: A- Vulvar lesion MICROSCOPIC DIAGNOSIS A. 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 The slides are reviewed with Dr. Enamorado in consultation. MICROSCOPIC DESCRIPTION Slides are reviewed. GROSS DESCRIPTION A. Received in formalin in a container labeled with the patient's name, date of , and with the accompanying paperwork indicating vulvar tissue is an unoriented and irregular fragment of white-robin soft tissue measuring 0.5 x 0.4 x 0.1 cm. 1 surface is probably consistent with a roughened white-coleman skin, and the opposing surface is inked green. No overt lesion is grossly recognized. Submitted entirely in A1. [facility] 03-19-2025 CPT:52928,58090
== END | disposition home or self-care (01) ==
LOC: LABSPEC 15:14
PROVIDERS: PCP Family Medicine; Referring Provider Obstetrics & Gynecology; Visit Provider Obstetrics & Gynecology
DX: N90.89 Other specified noninflammatory disorders of vulva and perineum (principal); L29.2 Pruritus vulvae
CPT/HCPCS: 88305; 88342

== ENCOUNTER 2025-04-13 10:51 | Outpatient (CLI) | payer BC, SELFPAY ==
[2025-04-13 10:58] VITALS: BP 128/78; PULSE 87; RESP 16; TEMP 35.8; O2SAT 96
[2025-04-13] MEDS: 0.9% NaCl Peripheral Flush Adult IV (11:04)
[2025-04-13] MEDS: 0.9% NaCl IVPB Med Flush (100mL) 15 ML IV (11:08)
[2025-04-13] MEDS: Zoledronic Acid 5 MG 100 ML 300 MG IV (11:30)
[2025-04-13 12:03] VITALS: BP 121/78; PULSE 77; RESP 16; TEMP 36.2; O2SAT 97
== END 2025-04-13 23:59 | disposition home or self-care (01) ==
LOC: MEDOUTP 10:52
PROVIDERS: PCP Family Medicine; Referring Provider Internal Medicine Endocrinology, Diabetes & Metabolism; Visit Provider Internal Medicine Endocrinology, Diabetes & Metabolism
DX: M81.0 Age-related osteoporosis without current pathological fracture (principal)
CPT/HCPCS: 96365; A4216; J3489

== ENCOUNTER → 2025-08-10 | Outpatient (CLI) | payer BC, SELFPAY ==
--- NOTE | 2025-08-10 13:29 | US_ITS ---
PROCEDURE: THYROID 08/10/2025 REASON FOR EXAM: ENLARGED THYROID TECHNIQUE: Procedure Code: USTHY Modality: US Procedure: THYROID COMPARISON: None available. FINDINGS: Right thyroid lobe size: 3.1 x 2.1 x 0.6 cm Left thyroid lobe size: 3.7 x 1.0 x 0.7 cm Isthmus: 0.2 cm Background parenchymal echotexture is homogeneous. Nodules: 1. Lobe: Left, Location: Upper, Size: 0.4 x 0.4 x 0.2 cm, Stability: N/A Composition: Cystic or mostly cystic (+0) Echogenicity: Anechoic (+0) Margin: Smooth (+0) Shape: Wider than tall (+0) Echogenic Foci: None (+0) TI-RADS: 1 2. Lobe: Left, Location: Mid to lower, Size: 1.4 x 1.1 x 0.5 cm, Stability: N/A Composition: Solid or almost completely solid (+2) Echogenicity: Hypoechoic (+2) Margin: Smooth (+0) Shape: Wider than tall (+0) Echogenic Foci: None (+0) TI-RADS: 4 3. Lobe: Right, Location: Isthmus, Size: 0.8 x 0.6 x 0.4 cm, Stability: N/A Composition: Solid or almost completely solid (+2) Echogenicity: Hypoechoic (+2) Margin: Smooth (+0) Shape: Wider than tall (+0) Echogenic Foci: None (+0) TI-RADS: 4 US/Thyroid IMPRESSION: Left thyroid 1.4 cm nodule and right isthmus 0.8 cm nodule, TI-RADS 4, moderate ly suspicious., RECOMMENDATION: Based on most suspicious nodule. Nodule size = largest diameter Only evaluate nodule if =>5 mm. Growth > 20% in 2 dimensions = worsening. Follow up to 4 nodules. Recommend biopsy for no more than 2 nodules. Reading Location[facility]
== END | disposition home or self-care (01) ==
LOC: US 13:26
PROVIDERS: PCP Family Medicine; Referring Provider Family Medicine; Visit Provider Family Medicine
DX: E04.9 Nontoxic goiter, unspecified (principal)
CPT/HCPCS: 76536

== ENCOUNTER → 2025-09-21 | Outpatient (CLI) | payer BC, SELFPAY ==
--- NOTE | 2025-09-21 15:00 | BI_ITS ---
EXAM: SCRN MAMM (CAD)W/RENALDO BILAT DATE: 09/21/2025 CLINICAL HISTORY: F, Age 55 y/o , SCREENING MAMMOGRAM The patient has bilateral breast implants TECHNIQUE: Procedure Code: [id number] Modality: MG Procedure: SCRN MAMM (CAD)W/RENALDO BILAT. Pushback [place] CC and pushback [place] MLO views of the right and left breasts were also performed. COMPARISON: Prior exam(s) dated 09/15/2024 and 06/21/2023. FINDINGS: TISSUE DENSITY: There are scattered areas of fibroglandular density. Bilateral Breast Mammographic Findings: No significant masses, calcifications or other abnormalities are identified. Both breast implants appear to be intact. Benign-appearing axillary lymph nodes are seen bilaterally. BI/SCRN MAMM (CAD)W/RENALDO BILAT IMPRESSION: Benign screening mammogram. OVERALL FINAL ASSESSMENT BI-RADS 2: BENIGN RECOMMENDATION: Routine annual follow-up in 1 Year Additional Recommendation none A letter with findings and recommendations will be mailed to the patient. Reading Location: [id number]
== END | disposition home or self-care (01) ==
LOC: OPBI 14:50
PROVIDERS: PCP Family Medicine; Referring Provider Obstetrics & Gynecology; Visit Provider Obstetrics & Gynecology
DX: Z12.31 Encounter for screening mammogram for malignant neoplasm of breast (principal)
CPT/HCPCS: 77063; 77067

== ENCOUNTER → 2025-11-20 | Outpatient (CLI) | payer BC, SELFPAY ==
--- NOTE | 2025-11-20 15:16 | RAD_ITS ---
PROCEDURE: S-I JTS 3 OR MORE VIEWS 11/20/2025 REASON FOR EXAM: TAILBONE INJURY TECHNIQUE: Procedure Code: RADSAI Modality: DX Procedure: S-I JTS 3 OR MORE VIEWS COMPARISON: None available. FINDINGS: The bilateral sacroiliac joints are unremarkable. The sacrum is intact. 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 Degenerative changes of the lower visualized spine. Unremarkable soft tissues. RAD/S-I Jts 3 or More Views IMPRESSION: No acute fracture or dislocation in the sacrum or coccyx. Unremarkable sacroil iac joints. 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 Reading Location: [id number]
--- OUTSIDE RECORDS SUMMARY | 2025-11-20 17:08 | XMS RPT_ITS | CCD ---
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 Ana Laura Burk Primary Care Provider Dr. Ana Laura Burk Referring Provider Dr. Hardy Hernandez Attending Provider 1([facility])[phone] José Suarez Referring Provider 1([facility])[phone] Suarez, Dr. Kumar Other Provider 1([facility])[phone] Preet Bauer Attending Provider Uday BAND SINGER, BAND SINGERSusanC Cara Attending Provider [phone] DR ANA LAURA BURK MD Primary Care Physician ([facility])[phone] Dr. Ana Laura Burk Primary Care Provider Dr. Ana Laura Burk Referring Provider [phone] Kandy Disla Attending Provider 1([facility] )[phone] MONET CREWS MD Attending Unavailable DR. ANA LAURA BURK MD. Primary Care Unavailable Dr. Ana Laura Burk Primary Care Provider Dr. Ana Laura Burk Referring Provider [phone] Hardy Hernandez Attending Provider [phone] Dr. Rocael Yang Attending Provider 1([facility])[phone] Adi Morales Attending Provider Dr. Kandy Disla Attending Provider [phone] Dr. Ana Laura Burk Primary Care Provider 1([facility])[phone] Dr. Ana Laura Burk Referring Provider 1([facility])[phone] Dr. Hardy Hernandez Attending Provider Wm PERRY, Dr. Ana Laura Astorga Primary Care Provider Wm PERRY, Dr. Ana Laura Astorga Referring Provider Marty Weaver Attending Provider Marty Weaver Referring Provider Naif PERRY, Dr. Gaitan Attending Provider King VICKY, Dr. Dash Attending Provider King VICKY, Dr. Dash Referring Provider Naif PERRY, Dr. Gaitan Referring Provider Wm PERRY, Dr. Ana Laura Astorga Primary Care Provider Wm PERRY, Dr. Ana Laura Astorga Referring Provider Naif PERRY, Dr. Gaitan Attending Provider Wm PERRY, Dr. Ana Laura Astorga Primary Care Physician [phone] Wm PERRY, Dr. Ana Laura Astorga Referring Provider Naif PERRY, Dr. Gaitan Attending Physician Emmy PERRY, Kena Primary Care Physician [phone] Kena Booth MD Attending Physician Emmy PERRY, Kena Referring Provider [phone] Naif PERRY, Dr. Gaitan Referring Provider [phone] Jolliff, Ana Laura S Primary Care Unavailable David, Hardy Attending Unavailable David, Hardy Referring Unavailable Marcanthony, Kandy Referring Unavailable Jolliff, Ana Laura S Primary Care Unavailable Marcanthony, Kandy Attending Unavailable Jolliff, Ana Laura S Primary Care Unavailable David, Hardy Attending Unavailable David, Hardy Referring Unavailable Emmy, Chalon Primary Care Unavailable Emmy, Kena Attending Unavailable Emmy, Chalon Referring Unavailable Marcanthony, Kandy Attending Unavailable Emmy, Chalon Primary Care Unavailable Marcanthony, Kandy Referring Unavailable Jolliff, Ana Laura S Referring Unavailable Jolliff, Ana Laura S Primary Care Unavailable Marcanthony, Kandy Attending Unavailable Jolliff, Ana Laura S Referring Unavailable Jolliff, Ana Laura S Primary Care Unavailable Kandy Disla Attending Unavailable Jolliff, Ana Laura S Referring Unavailable Jolliff, Ana Laura S Primary Care Unavailable Kandy Disla Attending Unavailable Kandy Disla Attending Unavailable Jolliff, Ana Laura S Referring Unavailable EmmyKena wolf Primary Care Unavailable Jolliff, Ana Laura S Primary Care Unavailable Jolliff, Ana Laura S Referring Unavailable Kandy Disla Attending Unavailable Jolliff, Ana Laura S Primary Care Unavailable Jolliff, Ana Laura S Referring Unavailable Hardy Hernandez Attending Unavailable Jolliff, Ana Laura S Primary Care Unavailable Marty Weaver Attending Unavailable Jolliff, Ana Laura S Referring Unavailable Marty Weaver Attending Unavailable Jolliff, Ana Laura S Primary Care Unavailable Marty Weaver Referring Unavailable Allergies Allergy Classification Reported Allergen(s) Allergy Type Date of Onset Reaction(s) Facility (2 sources) Environmental Allergies: Uncoded; Translations: [Environmental Allergies: Uncoded] Allergy to substance 3 Other [facility] (1 source) weeds Allergy to substance 3 Other [facility] Medications Current Medications Medication Drug Class(es) Dates Sig (Normalized) Sig (Original) 8 hr acetaminophen 650 mg extended release oral tablet (13 sources) Start: 05-19-2022 take 1 tablet by mouth every twelve hours acetaminophen 325 mg / HYDROcodone bitartrate 5 mg oral tablet (1 source) Opioid Agonist Start: 09-10-2022 End: 09-13-2022 take 1 tablet by mouth every six hours as needed for pain [place] 325- 5 mg oral tablet Dose = 1 tab(s), Oral, q6h, PRN As needed for severe pain, X 3 day(s), # 12 tab(s), 0 Refill(s), Kidney stone Renal colic on right side Start Date: 09/10/22 Stop Date: 09/13/22 Status: Ordered cholecalciferol 0.01 mg oral capsule (20 sources) Vitamin D Start: 06-19-2024 take 1 capsule by mouth once daily Start: 03-27-2015 End: 05-19-2022 take 4 tablets by mouth once daily Cholecalciferol (Vitamin D3) (Vitamin D3) 1,000 UNIT tablet Discontinued 4000 U PO DAILY March 27, 2015 12:00am May 19, 2022 8:48am DULoxetine 30 mg delayed release oral capsule (13 sources) Serotonin and Norepinephrine Reuptake Inhibitor Start: 05-19-2022 take 1 capsule by mouth once daily imiquimod 50 mg/ml topical cream (3 sources) Start: 04-19-2025 LORazepam 0.5 mg oral tablet (15 sources) Benzodiazepine Start: 02-24-2021 Multivitamin tablet (6 sources) Start: 06-19-2024 Start: 06-19-2024 Multivitamin t ablet Active 1 {tbl} PO DAILY June 19, 2024 12:00am Multivitamin With Folic Acid (Thera) 1 TABLET tablet (15 sources) Start: 03-27-2015 take 1 tablet by mouth once daily Multivitamin With Folic Acid (Thera) 1 TABLET tablet Active 1 TABLET PO DAILY March 27, 2015 9:13am Start: 03-27-2015 End: 05-19-2022 take 1 tablet by mouth once daily Multivitamin With Folic Acid (Thera) 1 TABLET tablet Discontinued 1 {tbl} PO DAILY March 27, 2015 12:00am May 19, 2022 8:48am Start: 03-27-2015 End: 05-19-2022 take 1 tablet by mouth once daily Multivitamin With Folic Acid (Thera) 1 TABLET tablet Discontinued 1 TABLET PO DAILY March 27, 2015 12:00am May 19, 2022 8:48am ondansetron 4 mg oral tablet (1 source) Serotonin-3 Receptor Antagonist Start: 09-10-2022 End: 09-13-2022 Zofran 4 mg oral tablet Dose : 4 mg = 1 tab(s), Oral, q6h, PRN As needed for nausea and vomiting, X 3 day(s), # 12 tab(s), 0 Refill(s), 09/13/22 15:23:00 EDT, Kidney stone Start Date: 09/10/22 Stop Date: 09/13/22 Status: Ordered tamsulosin hydrochloride 0.4 mg oral capsule (1 source) alpha-Adrenergic Gabrielle Start: 09-10-2022 End: 09-17-2022 Flomax 0.4 mg oral capsule Dose : 0.4 mg = 1 cap(s), Oral, qDay, # 7 cap(s), 0 Refill(s), Kidney stone Start Date: 09/10/22 Stop Date: 09/17/22 Status: Ordered Completed/Discontinued Medications Medication Drug Class(es) Dates Sig (Normalized) Sig (Original) ascorbic acid 500 mg oral tablet (15 sources) Vitamin C Start: 03-27-2015 End: 05-19-2022 Ascorbic Acid (Vitamin C) (Vitamin C) 500 MG tablet Discontinued 700 mg PO DAILY@0800 March 27, 2015 12:00am May 19, 2022 8:48am azithromycin 250 mg oral tablet (6 sources) Macrolide Antimicrobial Start: 12-26-2024 End: 02-12-2025 Azithromycin 250 mg tablet Discontinued 250 mg PO .COMPLEX 12 December 26, 2024 1:00am February 12, 2025 3:30pm 2 tablets (500 mg) on day 1, then 1 tablet daily on days 2 through 11 benzonatate 200 mg oral capsule (6 sources) Non-narcotic Antitussive Start: 12-26-2024 End: 02-12-2025 take 1 capsule by mouth three times daily as needed for cough Benzonatate 200 mg capsule Discontinued 200 mg PO THREE TIMES A DAY as needed for cough 20 December 26, 2024 1:00am February 12, 2025 3:31pm 24 hr buPROPion hydrochloride 300 mg extended release oral tablet (15 sources) Aminoketone Start: 02-24-2021 End: 05-19-2022 take 1 tablet by mouth every twenty-four hours Bupropion Hcl 300 mg tablet extended release 24 hr Discontinued NMA PO February 24, 2021 12:00am May 19, 2022 8:48am busPIRone hydrochloride 15 mg oral tablet (15 sources) Start: 02-24-2021 End: 05-19-2022 Buspirone 15 mg tablet Discontinued NMA PO February 24, 2021 12:00am May 19, 2022 8:48am Start: 02-24-2021 End: 05-19-2022 Buspirone Discontinued TAB P O February 24, 2021 12:00am May 19, 2022 8:48am cetirizine hydrochloride 10 mg oral capsule (6 sources) Histamine-1 Receptor Antagonist Start: 06-19-2024 End: 02-12-2025 take 1 capsule by mouth once daily as needed Cetirizine (All Day Allergy (Cetirizine)) 10 mg capsule Discontinued 10 mg PO DAILY as needed June 19, 2024 12:00am February 12, 2025 3:31pm clobetasol propionate 0.0005 mg/mg topical ointment (20 sources) Corticosteroid Start: 05-19-2022 End: 12-26-2024 Clobetasol 0.05 % ointment Discontinued 1 NMA TOPICAL .COMPLEX 15 2 June 03, 2023 4:48pm December 26, 2024 3:06pm 1 applic topical apply bid X 2 weeks, daily X 2 weeks then prn. Small amount and massge in; docusate sodium 100 mg oral capsule (15 sources) Start: 04-04-2015 End: 05-19-2022 take 1 capsule by mouth twice daily Docusate Sodium (Colace) 100 MG capsule Discontinued 100 mg PO TWICE A DAY 60 1 April 04, 2015 12:00am May 19, 2022 8:48am constipation HYDROcodone (10 sources) Opioid Agonist Start: 03-01-2023 End: 02-28-2024 hydrocodone 5mg 325mg Discontinued PO March 01, 2023 12:00am February 28, 2024 3:50pm Start: 03-01-2023 hydrocodone 5m g 325mg Active PO March 01, 2023 12:00am ibuprofen 400 mg oral tablet (20 sources) Nonsteroidal Anti-inflammatory Drug Start: 08-14-2024 End: 12-26-2024 take 2 tablets by mouth every twelve hours Ibuprofen 400 mg tablet Discontinued 800 mg PO Q12H August 14, 2024 3:01pm December 26, 2024 3:06pm Abdominal Pain Start: 04-04-2015 End: 08-14-2024 take 2 tablets by mouth every six hours as needed for pain Ibuprofen 400 MG tablet Discontinued 800 mg PO EVERY 6 HOURS NEEDED as needed for Abdominal Pain 30 April 04, 2015 12:00am August 14, 2024 3:02pm Start: 04-04-2015 take 800 mg by mouth every six hours as needed Ibuprofen Active 800 MG PO EVERY 6 HOURS NEEDED April 04, 2015 12:00am levothyroxine sodium 0.112 mg oral tablet (20 sources) l-Thyroxine Start: 03-27-2015 End: 02-28-2025 take 1 tablet by mouth once daily Levothyroxine 112 mcg tablet Discontinued 112 ug PO DAILY 90 3 February 29, 2024 7:33am February 28, 2025 9:57pm pregabalin 75 mg oral capsule (13 sources) Start: 05-19-2022 End: 03-01-2023 take 1 capsule by mouth twice daily Pregabalin 75 mg capsule Discontinued 75 mg PO TWICE A DAY May 19, 2022 12:00am March 01, 2023 4:02pm sertraline 100 mg oral tablet (15 sources) Serotonin Reuptake Inhibitor Start: 02-24-2021 End: 05-19-2022 take 1 tablet by mouth once daily Sertraline 100 mg tablet Discontinued 100 mg PO DAILY February 24, 2021 12:00am May 19, 2022 8:47am vitamin e 180 mg oral capsule (15 sources) Start: 03-27-2015 End: 05-19-2022 take 1 capsule by mouth once daily Vitamin E (Dl, Acetate) 400 UNITS capsule Discontinued 1000 mg PO DAILY March 27, 2015 12:00am May 19, 2022 8:47am Start: 03-27-2015 End: 05-19-2022 take 1000 mg by mouth once daily Vitamin E (Dl, Acetate) Discontinued 1000 MG PO DAILY March 27, 2015 12:00am May 19, 2022 8:47am 100 ml zoledronic acid 0.05 mg/ml injection (6 sources) Bisphosphonate Start: 03-01-2025 End: 03-16-2025 Zoledronic [id number]-[id number]-Qbblk 5 mg/100 mL piggyback Discontinued 1 NMA .Route ONCE 100 0 March 01, 2025 12:00am March 16, 2025 1:59pm infuse over 20 minutes Problems Problem Classification Problem Date Documented Date Episodic/Chronic Allergic reactions (7 sources) Vulval eczema; Translations: [Dermatitis, unspecified] Onset: 09-10-2025 08-15-2024 Episodic Comment on above: topical aquaphor, a and d ointment, s/p biopsy showed inflamed condyloma. left labial redness recommend fu in 6 months. Calculus of urinary tract (2 sources) Kidney stone; Translations: [Calculus of kidney] Onset: 09-10-2022 Episodic Complications of surgical procedures or medical care (20 sources) Postablative hypothyroidism; Translations: [Postprocedural hypothyroidism] Onset: 02-27-2025 Chronic Diabetes or abnormal glucose tolerance complicating ; childbirth; or the puerperium (15 sources) History of gestational diabetes mellitus; Translations: [Personal history of gestational diabetes] 02-26-2020 Episodic Menopausal disorders (17 sources) Atrophic vaginitis; Translations: [Postmenopausal atrophic vaginitis] Chronic Comment on above: consider addition es tradiol cream next visit Osteoporosis (11 sources) Osteoporosis; Translations: [Age-related osteoporosis without current pathological fracture] Onset: 04-18-2025 03-01-2025 Chronic Other female genital disorders (12 sources) Lesion of vulva; Translations: [Other specified noninflammatory disorders of vulva and perineum] 02-12-2025 Episodic Comment on above: fu for vulvar colpsc opy and biopsy Other female genital disorders (10 sources) Vulval intraepithelial neoplasia grade 2; Translations: [Moderate vulvar dysplasia] 04-13-2025 Episodic Comment on above: discussed either abl ative therapies with laser or CUSA by morgue technician onc or topical imiquimod i would prescribe for 16 weeks and then fu for repeat vuluvar colposcopy and biopsy. s/p topical treatmen t with success. continue vuvlar colposcopy q 6months at this time. completed therapy by 09/22. Other female genital disorders (1 source) Other specified noninflammatory disorders of vulva and perineum; Translations: [Other specified noninflammatory disorders of vulva and perineum] Onset: 09-10-2025 Episodic Other female genital disorders (1 source) Moderate vulvar dysplasia; Translations: [Moderate vulvar dysplasia] Onset: 09-10-2025 Episodic Other nutritional; endocrine; and metabolic disorders (6 sources) Body mass index 25-29 - overweight 02-28-2024 Episodic Other screening for suspected conditions (not mental disorders or infectious disease) (1 source) Encounter for screening mammogram for malignant neoplasm of breast; Translations: [Encounter for screening mammogram for malignant neoplasm of breast] Onset: 10-02-2025 Episodic Other skin disorders (12 sources) Lichen sclerosus et atrophicus; Translations: [Lichen sclerosus et atrophicus] Chronic Residual codes; unclassified (14 sources) H/O: major abdominal surgery; Translations: [Acquired absence of other genital organ(s)] 03-04-2022 Episodic Comment on above: right Residual codes; unclassified (14 sources) History of left salpingo-oophorectomy ; Translations: [Acquired absence of other genital organ(s)] 03-04-2022 Episodic Residual codes; unclassified (8 sources) Menopause present; Translations: [Asymptomatic menopausal state] 02-28-2024 Episodic Residual codes; unclassified (2 sources) Asymptomatic menopausal state; Translations: [Symptomatic menopausal or female climacteric states] 02-28-2024 Episodic Spondylosis; intervertebral disc disorders; other back problems (12 sources) Stenosis of intervertebral foramina; Translations: [Spinal stenosis, cervical region] 03-08-2023 Episodic Thyroid disorders (2 sources) Nontoxic goiter, unspecified; Translations: [Hypothyroidism, unspecified] Onset: 03-05-2025 Chronic Unclassified (4 sources) Body mass index 25-29 - overweight; Translations: [Body mass index (BMI) of 25.0 to 29.9] 02-28-2024 Unclassified (1 source) Cough, unspecified; Translations: [Cough, unspecified] Onset: 01-13-2025 Viral infection (6 sources) Lesion of skin and/or skin-associated mucous membrane; Translations: [Anogenital (venereal) warts] 08-15-2024 Episodic Results Test Name Value Interpretation Reference Range Facility SCRN MAMM (CAD)W/RENALDO BILATo n 09-21-2025 SCRN MAMM (CAD)W/RENALDO BILAT [facility] Imaging Services [address] [place] [address] [id number] SCRN MAMM (CAD)W/RENALDO BILAT MR#: [id number] Acct: [id number] Name: ALEISHA WITT Rep #: [id number] : 1970 F 55 From: Hoda Brandon PCP: Dr. Kena Booth MD Status: [facility] Study: SCRN MAMM (CAD)W/RENALDO BILAT Date of Exam: 08/30 03/23 Exam# [id number] Ordering Dr: Kandy Disla EXAM: SCRN MAMM (CAD)W/RENALDO BILAT DATE: 09/21/2025 CLINICAL HISTORY: F, Age 55 y/o , SCREENING MAMMOGRAM The patient has bilateral breast implants TECHNIQUE: Procedure Code: [id number] Modality: MG Procedure: SCRN MAMM (CAD)W/RENALDO BILAT. Pushback [place] CC and pushback [place] MLO views of the right and left breasts were also performed. COMPARISON: Prior exam(s) dated 09/15/2024 and 06/21/2023. FINDINGS: TISSUE DENSITY: There are scattered areas of fibroglandular density. Bilateral Breast Mammographic Findings: No significant masses, calcifications or other abnormalities are identified. Both breast implants appear to be intact. Benign-appearing axillary lymph nodes are seen bilaterally. BI/SCRN MAMM (CAD)W/RENLADO BILAT IMPRESSION: Benign screening mammogram. OVERALL FINAL ASSESSMENT BI-RADS 2: BENIGN RECOMMENDATION: Routine annual follow-up in 1 Year Additional Recommendation none A letter with findings and recommendations will be mailed to the patient. Reading Location: [id number] CC: Dr. Kena Booth MD; Dr. 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 Required: No Is patient in pain?: No Allergies Environmental Allergies: Uncoded Allergy (Verified 09/10/25 14:15) Other Medications ???Medication ???Instructions ???Recorded ???Confirmed ???Type lorazepam 0.5 mg tablet 0.5 mg PO PRN anxiety 02/24/21 History acetaminophen 650 mg 650 mg PO Q12H 05/19/22 09/10/25 H istory tablet,extended release (Tylenol Arthritis Pain) duloxetine 30 mg capsule,delayed 30 mg PO DAILY 05/19/22 09/10/25 H istory release (Cymbalta) cholecalciferol (vitamin D3) 10 10 mcg PO DAILY 06/19/24 09/10/25 History mcg (400 unit) capsule multivitamin 1 tab PO DAILY 06/19/24 09/10/25 H istory ibuprofen 200 mg capsule 200 mg Capsule#3 Samples 12/26/24 09/10/25 Sample levothyroxine 112 mcg tablet 112 mcg PO DAILY #90 tabs 02/28/25 09/10/25 Rx imiquimod 5 % topical cream packet 1 applic topical 3XW 4 weeks #12 ea 04/19/25 09/10/25 Rx Is last menstrual period known: No Patient : No : No PFSH PFSH Medical History (Updated 09/10/25 @ 15:[address] Kandy Disla MD) LINDA II (vulvar intraepithelial neoplasia II) Osteoporosis Nodular basal cell carcinoma Overweight (BMI 25.0-29.9) Menopause Postablative hypothyroidism History of gestational diabetes Surgical History H/O hand surgery H/O tubal ligation H/O breast augmentation H/O unilateral salpingectomy History of left salpingo-oophorectomy S/P FRANKY (total abdominal hysterectomy) Family History Mother Breast cancer Grandmother Cancer Other Diabetes Social History household members: spouse current occupational status: employed current occupation: [employer] Smoking Status: Former smoker alcohol intake: current alcohol intake frequency: a few times a month substance use type: does not use diet: other what type of physical activity do you participate in: none seatbelt use: always do you feel safe at home: Yes additional social history: sunny [place] History 5 Elective abortions Hx Para Spontaneous abortions Hx # Term Pregnancies Ectopic pregnancies Hx # Pregnancies Multiple births # of living children 2 HPI vulvar colposcopy/biopsy Details: ALEISHA VELÁSQUEZ is a 55 year old who presents for vulvar colposcopy for linda II followup after treatent with topical cream. she has had a resoluation of symptos, irritation resolved. some thinning of the skin but no major rritation no bleeding or discomfort. ROS Const Constitutional: Reports as per HPI; Denies fatigue, increased appetite, poor appetite, weight gain or weight loss Cardio Card: Denies chest pain Resp Resp: Denies cough or dyspnea GI GI: Reports as per HPI; Denies abdominal pain, bloating, constipation, nausea or vomiting : Reports as per HPI and other; Denies difficulty voiding, dysuria, hematuria, nipple discharge, pelvic pain, prolapse symptoms, urinary frequency, urinary incontinence, urinary urgency, vaginal discharge, vaginal dryness, vaginal odor or vaginal pruritus Skin Skin/Breast: Denies changing lesions, breast mass, breast pain, breast skin changes or nipple discharge Psych Psych: Denies anxiety or depression Exam Const General: cooperative, healthy appearing, comfortable, no acute distress, well developed and well groomed HENMT Head: normal to inspection and normocephalic Ears: hearing grossly normal bilaterally and external ears normal Nose: external nose normal Face and sinus: normal facial exam Neck Neck: normal visual inspection, full ROM and no lymphadenopathy Thyroid: thyroid normal Resp Effort Inspection: normal respiratory effort GI Inspection: normal to inspection and non-distended Palpation: soft, no hepatosplenomegaly and no guarding General: bladder normal to palpation External Female Exam: abnormal external appearance (thinning and areas of healing but no lesions), normal appearance of the urethra and no lesions Urethra: normal appearance of the urethra and normal palpation Speculum Exam - Va (more content not included)... Normal [facility] Thyroidon 08-10-2025 Thyroid [facility] Imaging Services [address] [place], [place] [id number] Thyroid MR#: [id number] Acct: [id number] Name: ALEISHA WITT Rep #: [id number] : 1970 F 55 From: Bhavik Mallory MD PCP: Dr. Kena Booth MD Status: REG CLI Study: Thyroid Date of Exam: 08/10/25 Exam# [id number] Ordering Dr: Kena Booth MD PROCEDURE: THYROID 08/10/2025 REASON FOR EXAM: ENLARGED THYROID TECHNIQUE: Procedure Code: USTHY Modality: US Procedure: THYROID COMPARISON: None available. FINDINGS: Right thyroid lobe size: 3.1 x 2.1 x 0.6 cm Left thyroid lobe size: 3.7 x 1.0 x 0.7 cm Isthmus: 0.2 cm Background parenchymal echotexture is homogeneous. Nodules: 1. Lobe: Left, Location: Upper, Size: 0.4 x 0.4 x 0.2 cm, Stability: N/A Composition: Cystic or mostly cystic (+0) Echogenicity: Anechoic (+0) Margin: Smooth (+0) Shape: Wider than tall (+0) Echogenic Foci: None (+0) TI-RADS: 1 2. Lobe: Left, Location: Mid to lower, Size: 1.4 x 1.1 x 0.5 cm, Stability: N/A Composition: Solid or almost completely solid (+2) Echogenicity: Hypoechoic (+2) Margin: Smooth (+0) Shape: Wider than tall (+0) Echogenic Foci: None (+0) TI-RADS: 4 3. Lobe: Right, Location: Isthmus, Size: 0.8 x 0.6 x 0.4 cm, Stability: N/A Composition: Solid or almost completely solid (+2) Echogenicity: Hypoechoic (+2) Margin: Smooth (+0) Shape: Wider than tall (+0) Echogenic Foci: None (+0) TI-RADS: 4 US/Thyroid IMPRESSION: Left thyroid 1.4 cm nodule and right isthmus 0.8 cm nodule, TI-RADS 4, moderately suspicious., RECOMMENDATION: Based on most suspicious nodule. Nodule size = largest diameter Only evaluate nodule if =>5 mm. Growth > 20% in 2 dimensions = worsening. Follow up to 4 nodules. Recommend biopsy for no more than 2 nodules. Reading Location: [facility] CC: Dr. Kena Booth MD Wireline Operator: Signed Normal [facility] Convention Worker Office Visit Reporton 06-22-2025 Convention Worker Office Visit Report [facility] [address], [address] [place] [address] OFFICE VISIT Date of Service: 06/22/25 MR#: [id number] Acct: [id number] Name: ALEISHA WITT Rep #: [id number] : 1970 Provider: Dr. 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 Required: No Is patient in pain?: No Allergies Environmental Allergies: Uncoded Allergy (Verified 06/22/25 14:53) Other Medications ???Medication ???Instructions ???Recorded ???Confirmed ???Type lorazepam 0.5 mg tablet 0.5 mg PO PRN anxiety 02/24/21 History acetaminophen 650 mg 650 mg PO Q12H 05/19/22 06/22/25 H istory tablet,extended release (Tylenol Arthritis Pain) duloxetine 30 mg capsule,delayed 30 mg PO DAILY 05/19/22 06/22/25 H istory release (Cymbalta) cholecalciferol (vitamin D3) 10 10 mcg PO DAILY 06/19/24 06/22/25 History mcg (400 unit) capsule multivitamin 1 tab PO DAILY 06/19/24 06/22/25 H istory ibuprofen 200 mg capsule 200 mg Capsule#3 Samples 12/26/24 06/22/25 Sample levothyroxine 112 mcg tablet 112 mcg PO DAILY #90 tabs 02/28/25 06/22/25 Rx imiquimod 5 % topical cream packet 1 applic topical 3XW 4 weeks #12 ea 04/19/25 06/22/25 Rx Is last menstrual period known: No Post menopausal: Yes Patient : No : No PFSH Medical History LINDA II (vulvar intraepithelial neoplasia II) Osteoporosis Nodular basal cell carcinoma Overweight (BMI 25.0-29.9) Menopause Postablative hypothyroidism History of gestational diabetes Surgical History H/O hand surgery H/O tubal ligation H/O breast augmentation H/O unilateral salpingectomy History of left salpingo-oophorectomy S/P FRANKY (total abdominal hysterectomy) Family History Mother Breast cancer Grandmother Cancer Other Diabetes Social History household members: spouse current occupational status: employed current occupation: [employer] Smoking Status: Former smoker alcohol intake: current alcohol intake frequency: a few times a month substance use type: does not use diet: other what type of physical activity do you participate in: none seatbelt use: always do you feel safe at home: Yes additional social history: - Kermit History 5 Elective abortions Hx Para Spontaneous abortions Hx # Term Pregnancies Ectopic pregnancies Hx # Pregnancies Multiple births # of living children 2 HPI Encounter for routine gynecological examination Details: ALEISHA VELÁSQUEZ is a 55 year old who presents for annual exam. Last PAP: Hyst History of abnormal PAP: Last mammogram: 09/15/2024 - normal History of abnormal mammogram: Colon cancer screening: colonoscopy 2019 Other preventative health care screenings: PCP Alfred Armendariz. Lisandro 2023. ROS Const Constitutional: Reports as per HPI; Denies fatigue, increased appetite, poor appetite, weight gain or weight loss Cardio Card: Denies chest pain Resp Resp: Denies cough or dyspnea GI GI: Reports as per HPI and constipation; Denies abdominal pain, bloating, nausea or vomiting : Reports as per HPI, vaginal dryness, vaginal pruritus and other; Denies difficulty voiding, dysuria, hematuria, nipple discharge, pelvic pain, prolapse symptoms, urinary frequency, urinary incontinence, urinary urgency, vaginal discharge or vaginal odor Skin Skin/Breast: Reports changing lesions; Denies breast mass, breast pain, breast skin changes or nipple discharge Psych Psych: Denies anxiety or depression Exam Const General: cooperative, healthy appearing, comfortable, no acute distress, well developed and well groomed [facility] Head: normal to inspection and normocephalic Ears: hearing grossly normal bilaterally and external ears normal Nose: external nose normal Face and sinus: normal facial exam Neck Neck: normal visual inspection, full ROM and no lymphadenopathy Thyroid: thyroid normal Chest Chest palpation inspection: normal inspection of the chest Breast inspection: normal inspection of the breasts and normal inspection of the axillae Breast palpation: normal palpation of the breasts, normal palpation of the axillae and no axillary lymphadenopathy Resp Effort Inspection: normal respiratory effort GI Inspection: normal to inspection and non-distended Palpation: soft, no hepatosplenomegaly and (more content not included)... Normal [facility] Convention Worker Office Visit Reporton 04-13-2025 Convention Worker Office Visit Report [facility]'s [address], [address] [place] [address] OFFICE VISIT Date of Service: 04/13/25 MR#: [id number] Acct: [id number] Name: ALEISHA WITT Rep #: [id number] : 1970 Provider: Dr. Kandy solano MD Age/Sex: 55/F [place] [facility] [place]: Signed Intake Vital Signs 03/16/25 13:59 04/13/25 10:58 04/13/25 15:02 Height 5 ft 2 in 5 ft 2 in 5 ft 2 in Weight: 158 lb BMI 28.9 BP 135/81 H Intake Visit Reasons: 3 wk biopsy f/u Superintendent Custodian Janitor Required: No Allergies Environmental Allergies: Uncoded Allergy (Verified 04/13/25 15:05) Other Medications ???Medication ???Instructions ???Recorded ???Confirmed ???Type lorazepam 0.5 mg tablet 0.5 mg PO PRN anxiety 02/24/21 History acetaminophen 650 mg 650 mg PO Q12H 05/19/22 04/13/25 H istory tablet,extended release (Tylenol Arthritis Pain) duloxetine 30 mg capsule,delayed 30 mg PO DAILY 05/19/22 04/13/25 H istory release (Cymbalta) cholecalciferol (vitamin D3) 10 10 mcg PO DAILY 06/19/24 04/13/25 History mcg (400 unit) capsule multivitamin 1 tab PO DAILY 06/19/24 04/13/25 H istory ibuprofen 200 mg capsule 200 mg Capsule#3 Samples 12/26/24 04/13/25 Sample levothyroxine 112 mcg tablet 112 mcg PO DAILY #90 tabs 02/28/25 04/13/25 Rx Patient : No : No PFSH Medical History (Updated 04/13/25 @ 17:[address] Kandy Disla MD) LINDA II (vulvar intraepithelial neoplasia II) Osteoporosis Nodular basal cell carcinoma Overweight (BMI 25.0-29.9) Menopause Postablative hypothyroidism History of gestational diabetes Surgical History H/O hand surgery H/O tubal ligation H/O breast augmentation H/O unilateral salpingectomy History of left salpingo-oophorectomy S/P FRANKY (total abdominal hysterectomy) Family History Mother Breast cancer Grandmother Cancer Other Diabetes Social History household members: spouse current occupational status: employed current occupation: [employer] Smoking Status: Former smoker alcohol intake: current alcohol intake frequency: a few times a month substance use type: does not use diet: other what type of physical activity do you participate in: none seatbelt use: always do you feel safe at home: Yes additional social history: - Kermit HPI 3 wk biopsy f/u Details: ALEISHA VELÁSQUEZ is a 55 year old who presents for follow-up of LINDA 2. She states she thinks the lesions are spreading and she has some discomfort in the area and the sensation she has in the right side is now more lateral on the left. She denies any significant itching burning no bleeding or discharge no fevers. History 5 Elective abortions Hx Para Spontaneous abortions Hx # Term Pregnancies Ectopic pregnancies Hx # Pregnancies Multiple births # of living children 2 ROS Const Constitutional: Denies fatigue, fever(s), headache(s), increased appetite, poor appetite, weight gain or weight loss GI GI: Reports as per HPI; Denies abdominal pain, constipation, nausea or vomiting : Reports as per HPI; Denies difficulty voiding, dysuria, hematuria, pelvic pain, urinary frequency, urinary incontinence, urinary hesitancy, urinary urgency, vaginal discharge, vaginal dryness, vaginal odor, vaginal pruritus or other Exam Const General: cooperative, healthy appearing, comfortable, no acute distress and well developed Orientation: alert [facility] Head: normal to inspection and normocephalic Ears: hearing grossly normal bilaterally and external ears normal Nose: external nose normal and nares normal Face and sinus: normal facial exam Neck Neck: normal visual inspection, no lymphadenopathy and trachea midline Thyroid: thyroid normal Resp Effort Inspection: normal respiratory effort Musc Other: gross motor intact no deficits, full bilateral strength Skin General: no rashes or lesions noted Neuro Motor: muscle tone normal throughout Coding Level of Care Code Off vis,est,level 3 Diagnoses LINDA II (vulvar intraepithelial neoplasia II) N90.1 Assessment and Plan Assessment and Plan (1) LINDA II (vulvar intraepithelial neoplasia II): Status: Acute Comment: discussed either ablative therapies with laser or CUSA by morgue technician onc or topical imiquimod i would prescribe for 16 weeks and then fu for repeat vuluvar colposcopy and biopsy. Plan Problem list updated and treatment plans were reviewed with the patient and relevant educational handouts given. See problem list details for specific plan information. patient to call with decision for t (more content not included)... Normal [facility] Immunohistochemical Stainson 03-16-2025 Immunohistochemical Stains Patient Age/Sex Location Account Attending Physician ALEISHA WITT 55/F LABSPEC [id number] Dr. Kandy Disla MD Specimen: [id number] Received: 03/19/25 Status: PILAR Marin Num: [id number] Spec Type: Lesion Subm Dr: Dr. Kandy Disla MD HEADER OPERATION: Vulvar biopsy PRE-OP DIAGNOSIS: Vulvar lesion, vulvar dermatitis TISSUE SUBMITTED: A- Vulvar lesion MICROSCOPIC DIAGNOSIS A. 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 The slides are reviewed with Dr. Enamorado in consultation. MICROSCOPIC DESCRIPTION Slides are reviewed. GROSS DESCRIPTION A. Received in formalin in a container labeled with the patient's name, date of , and with the accompanying paperwork indicating vulvar tissue is an unoriented and irregular fragment of white-robin soft tissue measuring 0.5 x 0.4 x 0.1 cm. 1 surface is probably consistent with a roughened white-coleman skin, and the opposing surface is inked green. No overt lesion is grossly recognized. Submitted entirely in A1. [facility] 03-19-2025 CPT:11339,10000 Patient Age/Sex Location Account Attending Physician ALEISHA WITT 55/F [facility] [id number] Dr. Kandy Disla MD Signed (signature on file) Dr. Anna Marie Rajan DO 03/29/25 1010 Normal [facility] Comment on above: Performed By: #### P COURTNEY #### [facility] [place], [place], [id number] Convention Worker Office Visit Reporton 03-16-2025 Convention Worker Office Visit Report [facility]'s [address], [address] [place] [address] OFFICE VISIT Date of Service: 03/16/25 MR#: [id number] Acct: [id number] Name: ALEISHA WITT Rep #: [id number] : 1970 Provider: Dr. Kandy solano MD Age/Sex: 55/F [place] [facility] [place]: Signed Intake Vital Signs 02/12/25 15:22 02/27/25 15:52 03/16/25 13:59 Height 5 ft 2 in 5 ft 2 in 5 ft 2 in Weight: 159 lb 4 oz 160 lb 160 lb 8 oz BMI 29.1 29.2 29.3 BP 134/87 H 125/83 H 150/84 H Blood Pressure Location Lt brachial Position Sitting Pulse 75 Pulse Source Monitor Pulse Oximetry (%) 95 Intake Visit Reasons: VULVAR BIOPSY Chief Complaint: colposcopy Superintendent Custodian Janitor Required: No Is patient in pain?: No Allergies Environmental Allergies: Uncoded Allergy (Verified 03/16/25 14:03) Other Medications ???Medication ???Instructions ???Recorded ???Confirmed ???Type lorazepam 0.5 mg tablet 0.5 mg PO PRN 02/24/21 02/27/25 Hi story acetaminophen 650 mg 650 mg PO Q12H 05/19/22 02/27/25 H istory tablet,extended release (Tylenol Arthritis Pain) duloxetine 30 mg capsule,delayed 30 mg PO DAILY 05/19/22 02/27/25 H istory release (Cymbalta) cholecalciferol (vitamin D3) 10 10 mcg PO DAILY 06/19/24 02/27/25 History mcg (400 unit) capsule multivitamin 1 tab PO DAILY 06/19/24 02/27/25 H istory ibuprofen 200 mg capsule 200 mg Capsule#3 Samples 12/26/24 02/27/25 Sample levothyroxine 112 mcg tablet 112 mcg PO DAILY #90 tabs 02/28/25 Rx Is last menstrual period known: No Post menopausal: Yes Patient : No : No PFSH PFSH Medical History Osteoporosis Nodular basal cell carcinoma Overweight (BMI 25.0-29.9) Menopause Postablative hypothyroidism History of gestational diabetes Surgical History H/O hand surgery H/O tubal ligation H/O breast augmentation H/O unilateral salpingectomy History of left salpingo-oophorectomy S/P FRANKY (total abdominal hysterectomy) Family History Mother Breast cancer Grandmother Cancer Other Diabetes Social History household members: spouse current occupational status: employed current occupation: [employer] Smoking Status: Former smoker alcohol intake: current alcohol intake frequency: a few times a month substance use type: does not use diet: other what type of physical activity do you participate in: none seatbelt use: always do you feel safe at home: Yes additional social history: - Kermit History 5 Elective abortions Hx Para Spontaneous abortions Hx # Term Pregnancies Ectopic pregnancies Hx # Pregnancies Multiple births # of living children 2 HPI VULVAR BIOPSY Details: ALEISHA VELÁSQUEZ is a 55 year old who presents for right vulvar lesion to have biopsied and colposcopy of vulvar done. ROS Const Constitutional: Reports system reviewed and no additional complaints, except as documented; Denies chills, fever(s), weight gain or weight loss GI GI: Reports as per HPI; Denies abdominal pain, bloating, constipation, cramping, nausea or vomiting : Reports as per HPI; Denies urinary frequency, urinary incontinence, urinary urgency, vaginal discharge or vaginal dryness Exam Const General: cooperative, healthy appearing, comfortable and well developed Orientation: alert H[facility] Head: normal to inspection Resp Effort Inspection: normal respiratory effort GI Inspection: normal to inspection and non-distended Palpation: soft, no hepatosplenomegaly and no guarding External Female Exam: abnormal external appearance, normal appearance of the urethra and lesion (right labial and clitoral fleshy papular lesions) Urethra: normal appearance of the urethra Speculum Exam - Vagina: normal appearance of the vagina, normal vaginal discharge and no lesions Office Procedures Colposcopy Colposcopy Reason for colposcopy: other (vulvar lesions) Pap/DILLON history: positive HR HPV Consent Signed: Yes Time out performed: Yes Vulva: Yes Vulva with Biopsy: Yes biopsy Biopsies (vulva): R labia Vulvar Biopsy Time Out: Consent Signed: Yes Time out checklist: patient, procedure, site marked/identified, positioning of patient, supplies available, allergies confirmed and team agrees on procedure Procedure Note: Biopsies (vulva): R labia Plan: Plan: Sign in Communication: Completed Sign out Communication: Completed Gross Lesions: multiple acetowhite areas seen right labia with thickening no abnormal vasculature biopsy taken of right labia (more content not included)... Normal [facility] Anion gap in Serum or Plasma Ordered By: Hardy Hernandez on 02-28-2025 Anion gap [Moles/Vol] 10 mmol/L 5-15 [facility] BUN/creatinine ratioOrdered By: Hardy Hernandez on 02-28-2025 Urea nitrogen/Creatinine [Mass ratio] 17.9 mg/mg 10-20 [facility] Bilirubin, totalOrdered By: Hardy Hernandez on 02-28-2025 Bilirubin [Mass/Vol] 0.19 mg/dL 0.00-1.30 [facility] Carbon dioxide, total [Moles /volume] in Central venous bloodOrdered By: Hardy Hernandez on 02-28-2025 CO2 [Moles/Vol] 27.9 mmol/L 21.0-32.0 [facility] Chloride assayOrdered By: Jorge Hernandez on 02-28-2025 Chloride [Moles/Vol] 105 mmol/L 98-108 [facility] Comprehensive Metabolic Prof ilon 02-28-2025 Albumin [Mass/Vol] 4.3 g/dL Normal 3.5-5.0 [facility] Comment on above: Performed By: #### L 506.1001, L500.4050, L506.0400, L501.9520 #### [facility] [address] [place], [address] Albumin/Globulin [Mass ratio] 1.7 {ratio} Normal 0.9-2.4 [facility] Comment on above: Performed By: #### L 506.1001, L500.4050, L506.0400, L501.9520 #### [facility] [address] [place], [address] ALK PHOS 91 U/L Normal 35-104 [facility] Comment on above: Performed By: #### L 506.1001, L500.4050, L506.0400, L501.9520 #### [facility] [address] [place], [address] ALT [Catalytic activity/Vol] 12 U/L Normal <=34 [facility] Comment on above: Performed By: #### L 506.1001, L500.4050, L506.0400, L501.9520 #### [facility] [address] [place], [address] AST [Catalytic activity/Vol] 23 U/L Normal <=31 [facility] Comment on above: Performed By: #### L 506.1001, L500.4050, L506.0400, L501.9520 #### [facility] [address] [place], [address] Bilirubin [Mass/Vol] 0.19 mg/dL Normal 0.00-1.30 [facility] Comment on above: Performed By: #### L 506.1001, L500.4050, L506.0400, L501.9520 #### [facility] [address] [place], [address] BUN/CRE 17.9 RATIO Normal 10-20 [facility] Comment on above: Performed By: #### L 506.1001, L500.4050, L506.0400, L501.9520 #### [facility] [address] [place], [address] Calcium [Mass/Vol] 9.5 mg/dL Normal 7.6-11.0 [facility] Comment on above: Performed By: #### L 506.1001, L500.4050, L506.0400, L501.9520 #### [facility] [address] [place], [address] Chloride [Moles/Vol] 105 mmol/L Normal 98-108 [facility] Comment on above: Performed By: #### L 506.1001, L500.4050, L506.0400, L501.9520 #### [facility] [address] [place], [address] CO2 [Moles/Vol] 27.9 mmol/L Normal 21.0-32.0 [facility] Comment on above: Performed By: #### L 506.1001, L500.4050, L506.0400, L501.9520 #### [facility] [address] [place], [address] Creatinine [Mass/Vol] 0.60 mg/dL Low 0.70-1.20 [facility] Comment on above: Performed By: #### L 506.1001, L500.4050, L506.0400, L501.9520 #### [facility] [address] [place], [address] GAP 10 Normal 5-15 [facility] Comment on above: Performed By: #### L 506.1001, L500.4050, L506.0400, L501.9520 #### [facility] [address] [place], [address] GFR/1.73 sq M.predicted among non-blacks MDRD (S/P/Bld) [Vol rate/Area] 105 mL/min/{1.73_m2} Normal >60 [facility] Comment on above: Result Comment: mL/m in/1.73m2 CKD-EPI Creatinine Equation (2020) Performed By: #### L 506.1001, L500.4050, L506.0400, L501.9520 #### [facility] [address] [place], [address] Globulin (S) [Mass/Vol] 2.6 g/dL Normal 2.2-4.2 [facility] Comment on above: Performed By: #### L 506.1001, L500.4050, L506.0400, L501.9520 #### [facility] [address] [place], [address] Glucose [Mass/Vol] 97 mg/dL Normal 70-99 [facility] Comment on above: Performed By: #### L 506.1001, L500.4050, L506.0400, L501.9520 #### [facility] [address] [place], [address] Potassium [Moles/Vol] 3.7 mmol/L Normal 3.3-5.1 [facility] Comment on above: Performed By: #### L 506.1001, L500.4050, L506.0400, L501.9520 #### [facility] [address] [place], [address] Sodium [Moles/Vol] 143 mmol/L Normal 133-145 [facility] Comment on above: Performed By: #### L 506.1001, L500.4050, L506.0400, L501.9520 #### [facility] [address] [place], [address] T PROT 6.9 g/dL Normal 5.9-8.4 [facility] Comment on above: Performed By: #### L 506.1001, L500.4050, L506.0400, L501.9520 #### [facility] [address] [place], [address] Urea nitrogen [Mass/Vol] 11 mg/dL Normal 4-19 [facility] Comment on above: Performed By: #### L 506.1001, L500.4050, L506.0400, L501.9520 #### [facility] [address] [place], [address] GFR/1.73 sq M.predicted nicol g non-blacks MDRD (S/P/Bld) [Vol rate/Area]Ordered By: Hardy Hernandez on 02-28-2025 Estimated GFR (MDRD) Non-Af Amer 105 >60 [facility] Comment on above: mL/min/1.73m2 CKD-EP I Creatinine Equation (2020) Glomerular filtration rate ( GFR) estimation/1.73 sq m using serum, plasma, or whole bOrdered By: Hardy Hernandez on 02-28-2025 GFR/1.73 sq M.predicted among non-blacks MDRD (S/P/Bld) [Vol rate/Area] 105 mL/min/{1.73_m2} >60 [facility] Comment on above: mL/min/1.73m2 CKD-EP I Creatinine Equation (2020) L506.1001on 02-28-2025 Vitamin D 25-OH 41.6 ng/mL Normal 30-100 [facility] Comment on above: Result Comment: Anyi min D Status Deficiency: <20 ng/mL (50nmol/L) Insufficiency: 20-30 ng/mL (50-75 nmol/L) Sufficiency: 30-100 ng/mL (75-250 nmol/L) Toxicity: >100 ng/mL (>250 nmol/L) Performed By: #### L 506.1001, L500.4050, L506.0400, L501.9520 #### [facility] [place], [address] Laboratory - Chemistry and C hemistry - challengeOrdered By: Hardy Hernandez on 02-28-2025 AST [Catalytic activity/Vol] 23 U/L <32 [facility] Potassium (Unsp spec) [Mass/ Vol]Ordered By: Hardy Hernandez on 02-28-2025 Potassium [Moles/Vol] 3.7 mmol/L 3.3-5.1 [facility] Potassium measurement (mass/ volume)Ordered By: Hardy Hernandez on 02-28-2025 Potassium (Unsp spec) [Mass/Vol] 3.7 mmol/L 3.3-5.1 [facility] Serum creatinine measurement (mass/volume)Ordered By: Hardy Hernandez on 02-28-2025 Creatinine [Mass/Vol] 0.60 mg/dL Low 0.70-1.20 [facility] Serum globulin measurementOr dered By: Hardy Hernandez on 02-28-2025 Globulin (S) [Mass/Vol] 2.6 g/dL 2.2-4.2 [facility] Serum glucose measurement (m ass/volume)Ordered By: Hardy Hernandez on 02-28-2025 Glucose [Mass/Vol] 97 mg/dL 70-99 [facility] Serum or plasma alanine wu otransferase (ALT) measurementOrdered By: Hardy Hernandez on 02-28-2025 ALT [Catalytic activity/Vol] 12 U/L <35 [facility] Serum or plasma albumin sheldon urement (mass/volume)Ordered By: Hardy Hernandez on 02-28-2025 Albumin [Mass/Vol] 4.3 g/dL 3.5-5.0 [facility] Serum or plasma albumin/glob ulin mass ratioOrdered By: Hardy Hernandez on 02-28-2025 Albumin/Globulin [Mass ratio] 1.7 {ratio} 0.9-2.4 [facility] Serum or plasma alkaline shaun sphatase measurementOrdered By: Hardy Hernandez on 02-28-2025 ALP [Catalytic activity/Vol] 91 U/L 35-104 [facility] Serum or plasma calcium sheldon urement (mass/volume)Ordered By: Hardy Hernandez on 02-28-2025 Calcium [Mass/Vol] 9.5 mg/dL 7.6-11.0 [facility] Serum or plasma urea nitroge n measurement (mass/volume)Ordered By: Hardy Hernandez on 02-28-2025 Urea nitrogen [Mass/Vol] 11 mg/dL 4-19 [facility] Sodium levelOrdered By: Hardy Hernandez on 02-28-2025 Sodium [Moles/Vol] 143 mmol/L 133-145 [facility] T4 Free Directon 02-28-2025 T4 FREE DIRECT 1.30 ng/dL Normal 0.76-1.46 [facility] Comment on above: Performed By: #### L 506.1001, L500.4050, L506.0400, L501.9520 #### [facility] [place], [address] T4 freeOrdered By: Hardy Hernandez on 02-28-2025 Free T4 [Mass/Vol] 1.30 ng/dL 0.76-1.46 [facility] TSH DL <= 0.005 mIU/L QnOrde red By: Hardy Hernandez on 02-28-2025 Thyroid Stimulating Hormone (TSH) 0.625 uIU/mL 0.300-4.20 0 [facility] TSH Qn 0.625 uIU/mL 0.300-4.20 0 [facility] Thyroid Stim Hormone (TSH)on 02-28-2025 TSH 0.625 uIU/mL Normal 0.300-4.20 0 [facility] Comment on above: Performed By: #### L 506.1001, L500.4050, L506.0400, L501.9520 #### [facility] [address] [place], [place], [address] Total proteinOrdered By: Anthony Hernandez on 02-28-2025 Protein [Mass/Vol] 6.9 g/dL 5.9-8.4 [facility] Vitamin D, 25-hydroxyOrdered By: Hardy Hernandez on 02-28-2025 Vitamin D 25-Hydroxy 41.6 ng/mL 30-100 [facility] Comment on above: Vitamin D StatusDefi ciency: <20 ng/mL (50nmol/L)Insufficiency: 20-30 ng/mL (50-75 nmol/L)Sufficiency: 30-100 ng/mL (75-250 nmol/L)Toxicity: >100 ng/mL (>250 nmol/L) Endocrinology Visit Reporton 02-27-2025 Endocrinology Visit Report [facility] [address] [place], [place] [address] OFFICE VISIT Date of Service: 02/27/25 MR#: [id number] Acct: [id number] Name: ALEISHA WITT Rep #: [id number] : 1970 Provider: Elvis Bradford Age/Sex: 55/F Location: [facility] [place] Status: Signed Intake Vital Signs 02/28/24 15:48 02/12/25 15:22 02/27/25 15:52 Height 5 ft 2 in 5 ft 2 in 5 ft 2 in Weight: 160 lb BMI 29.2 BP 125/83 H Blood Pressure Location Lt brachial Position Sitting Pulse 75 Pulse Source Monitor Pulse Oximetry (%) 95 Intake Visit Reasons: 1 Y FU Chief Complaint: thyroid/bone Is patient in pain?: No Allergies Environmental Allergies: Uncoded Allergy (Verified 02/27/25 15:53) Other Medications ???Medication ???Instructions ???Recorded ???Confirmed ???Type lorazepam 0.5 mg tablet 0.5 mg PO PRN 02/24/21 02/27/25 Hi story acetaminophen 650 mg 650 mg PO Q12H 05/19/22 02/27/25 H istory tablet,extended release (Tylenol Arthritis Pain) duloxetine 30 mg capsule,delayed 30 mg PO DAILY 05/19/22 02/27/25 H istory release (Cymbalta) cholecalciferol (vitamin D3) 10 10 mcg PO DAILY 06/19/24 02/27/25 History mcg (400 unit) capsule multivitamin 1 tab PO DAILY 06/19/24 02/27/25 H istory ibuprofen 200 mg capsule 200 mg Capsule#3 Samples 12/26/24 02/27/25 Sample levothyroxine 112 mcg tablet 112 mcg PO DAILY #90 tabs 02/28/25 Rx zoledronic acid 5 mg/100 mL in 1 ea .Route ONCE #100 mL 03/01/25 03/01/25 Rx mannitol 5 %-water intravenous piggybck PFSH Medical History (Updated 03/01/25 @ 13:[address] Hardy Hernandez MD) Osteoporosis Nodular basal cell carcinoma Overweight (BMI 25.0-29.9) Menopause Postablative hypothyroidism History of gestational diabetes Surgical History H/O hand surgery H/O tubal ligation H/O breast augmentation H/O unilateral salpingectomy History of left salpingo-oophorectomy S/P FRANKY (total abdominal hysterectomy) Family History Mother Breast cancer Grandmother Cancer Other Diabetes Social History household members: spouse current occupational status: employed current occupation: [employer] Smoking Status: Former smoker alcohol intake: current alcohol intake frequency: a few times a month substance use type: does not use diet: other what type of physical activity do you participate in: none seatbelt use: always do you feel safe at home: Yes additional social history: - [facility] HPI Chief Complaint: thyroid/bone Details: ALEISHA VELÁSQUEZ, is a 55 F who presents to the office today for follow up. She has hypothyroidism and is taking levothyroxine. TSH is 0.625 She is feeling well. She has [facility] osteoporosis. Bone density Mar, 2024 Lumbar Spine (L1-L4): g/cm2 (0.893) / T-score (-1.4) / Z-score (-0.3) Findings are suggestive of osteopenia with a low fracture risk. Left Femur Total: g/cm2 (0.757) / T-score (-1.5) / Z-score (-0.8) Left Femoral Neck: g/cm2 (0.578) / T-score (-2.4) / Z-score (-1.3) Right Femur Total: g/cm2 (0.716) / T-score (-1.8) / Z-score (-1.1) Right Femoral Neck: g/cm2 (0.552) / T-score (-2.7) / Z-score (-1.6) ROS Const Constitutional: Positive for fatigue; No weight change or change in appetite Eyes Eyes: No change in vision ENT ENT: No dizziness/vertigo or difficulty swallowing Cardio Cardiology: No chest pain at rest, chest pain with exertion, shortness of breath or palpitations Musc Musculoskeletal: No abnormal gait, joint pain, numbness or tingling Neuro Neurology: No abnormal gait, memory loss, numbness or tingling Psych Psychiatric: No change in appetite, No memory loss and No Thoughts of harming yourself/Others Resp Respiratory: No cough, chest congestion or shortness of breath Gastro GI: No abdominal pain, constipation, diarrhea or difficulty swallowing Genitourinary-Female: No burning urination Skin Skin: No itchy eyes or wounds Endo Endocrine: Positive for fatigue; No weight change Aller/Imm Allergy/Immunologic: No itchy eyes Exam Const General: cooperative, healthy appearing, comfortable, no acute distress, well developed and not cushingoid Nutritional Appearance: well nourished Orientation: alert, awake and oriented x3 HENMT Head: normal to inspection Ears: hearing grossly normal bilaterally Nose: external nose normal Mouth: oral mucosae normal Eyes General: appearance normal, both eyes and all related structures Alignment and Position: alignment normal Periorbital: periorbital findings normal Eyelids: eyelids normal Conjunctivae: conjunctiv (more content not included)... Normal [facility] Convention Worker Office Visit Reporton 02-12-2025 Convention Worker Office Visit Report [facility]'[address], [address] [place] [address] OFFICE VISIT Date of Service: 02/12/25 MR#: [id number] Acct: [id number] Name: ALEISHA WITT Rep #: [id number] : 1970 Provider: Dr. Kandy solano MD Age/Sex: 55/F [place] [facility] [place]: Signed Intake Vital Signs 08/14/24 15:04 12/26/24 14:05 02/12/25 15:22 Height 5 ft 2 in 5 ft 2 in 5 ft 2 in Weight: 159 lb 4 oz BMI 29.1 BP 134/87 H Intake Visit Reasons: BIOPSY 6M F/U Superintendent Custodian Janitor Required: No Is patient in pain?: No Feel stressed/tense/nervous/anxi ous/difficulty sleeping: not at all Allergies Environmental Allergies: Uncoded Allergy (Verified 02/12/25 15:30) Other Medications ???Medication ???Instructions ???Recorded ???Confirmed ???Type lorazepam 0.5 mg tablet 0.5 mg PO PRN 02/24/21 02/12/25 Hi story acetaminophen 650 mg 650 mg PO Q12H 05/19/22 02/12/25 H istory tablet,extended release (Tylenol Arthritis Pain) duloxetine 30 mg capsule,delayed 30 mg PO DAILY 05/19/22 02/12/25 H istory release (Cymbalta) levothyroxine 112 mcg tablet 112 mcg PO DAILY #90 tabs 02/29/24 02/12/25 Rx cholecalciferol (vitamin D3) 10 10 mcg PO DAILY 06/19/24 02/12/25 History mcg (400 unit) capsule multivitamin 1 tab PO DAILY 06/19/24 02/12/25 H istory ibuprofen 200 mg capsule 200 mg Capsule#3 Samples 12/26/24 02/12/25 Sample Is last menstrual period known: No Post menopausal: Yes Patient : No : No PFSH Medical History Nodular basal cell carcinoma Overweight (BMI 25.0-29.9) Menopause Postablative hypothyroidism History of gestational diabetes Surgical History H/O hand surgery H/O tubal ligation H/O breast augmentation H/O unilateral salpingectomy History of left salpingo-oophorectomy S/P FRANKY (total abdominal hysterectomy) Family History Mother Breast cancer Grandmother Cancer Other Diabetes Social History household members: spouse current occupational status: employed current occupation: [employer] Smoking Status: Former smoker alcohol intake: current alcohol intake frequency: a few times a month substance use type: does not use diet: other what type of physical activity do you participate in: none seatbelt use: always do you feel safe at home: Yes additional social history: - [employer] HPI BIOPSY 6M F/U Details: ALEISHA VELÁSQUEZ is a 55 year old who presents for follow up of vulvar dermatitis. she has had inflammation on biopsy in the past, has been using clobetasol and no vaginal bleeding or abnormal discharge. History 5 Elective abortions Hx Para Spontaneous abortions Hx # Term Pregnancies Ectopic pregnancies Hx # Pregnancies Multiple births # of living children 2 ROS Const Constitutional: Reports system reviewed and no additional complaints, except as documented GI GI: Denies abdominal pain, cramping, nausea or vomiting : Denies pelvic pain, urinary frequency, urinary incontinence, urinary urgency, vaginal discharge, vaginal dryness or vaginal odor Exam Const General: cooperative, healthy appearing, comfortable, no acute distress and well developed Nutritional Appearance: average body habitus Orientation: alert HENMT Head: normal to inspection and normocephalic Neck Neck: normal visual inspection and trachea midline Thyroid: thyroid normal Resp Effort Inspection: normal respiratory effort GI Inspection: normal to inspection and non-distended Palpation: soft and no hepatosplenomegaly External Female Exam: lesion (right periclitoral fleshy lesions on right labia) Skin General: no rashes or lesions noted Coding Level of Care Code Off vis,est,level 3 Diagnoses Vulvar lesion N90.89 Assessment and Plan Assessment and Plan (1) Vulvar lesion: Status: Acute Comment: fu for vulvar colpscopy and biopsy Plan Problem list updated and treatment plans were reviewed with the patient and relevant educational handouts given. See problem list details for specific plan information. 02/12/25 1604 Date Kandy Disla MD Cosigner Signature: Date (if applicable) CC: Normal [facility] Chest PA and Lateralon 12-26 Chest PA and Lateral [facility] [address] [place] [id number] [id number] Chest PA and Lateral MR#: [id number] Acct: [id number] Name: ALEISHA WITT Rep #: [id number] : 1970 F 54 From: Bill Ramirez PCP: Dr. Ana Laura Burk MD Status: REG CLI Study: Chest PA and Lateral Date of Exam: 12/26/24 Exam# [id number] Ordering Dr: Marty Greenberg PA PROCEDURE: CHEST PA AND LATERAL TECHNIQUE: Three-view PA and lateral chest. COMPARISON: None provided. RAD/Chest PA and Lateral IMPRESSION: [id number] right hemidiaphragm elevation is seen. Mild linear scarring is seen at the left lung base. Lungs appear clear of acute disease. No pleural effusion or pneumothorax is noted. The cardiomediastinal silhouette is within the expected range for age. No evidence of cardiomegaly. [id number] degenerative changes of the thoracic spine are seen. No evidence of acute cardiopulmonary disease. Reading Location: [address] CC: Dr. Ana Laura Burk MD; ROCHELLE Toscano Wireline Operator: Signed Normal [facility] Urgent Care Visit Reporton 0 12-26-2024 Urgent Care Visit Report [facility] [address], [address] [place] [address] OFFICE VISIT Date of Service: 12/26/24 MR#: [id number] Acct: [id number] Name: ALEISHA WITT Rep #: [id number] : 1970 Provider: ROCHELLE Toscano Age/Sex: 54/F Location: [facility] [place] Status: Signed Intake Vital Signs 08/14/24 15:04 12/26/24 14:05 Height 5 ft 2 in 5 ft 2 in Weight: 159 lb 161 lb 6 oz BMI 29.0 29.5 BP 141/90 H 142/88 H Blood Pressure Location Lt brachial Position Sitting Respiration 16 Pulse 81 Pulse Source NIBP Temp 102.5 F H Temp Source Oral Pulse Oximetry (%) 97 Oxygen Delivery Method room air Intake Visit Reasons: CONCERN FOR Pneumonia Chief Complaint: CHUNG, BA, ST, congest, ear pain, fever, cough Superintendent Custodian Janitor Required: No Is patient in pain?: No Allergies Environmental Allergies: Uncoded Allergy (Verified 12/26/24 14:06) Other Medications ???Medication ???Instructions ???Recorded ???Confirmed ???Type lorazepam 0.5 mg tablet 0.5 mg PO PRN 02/24/21 12/26/24 History acetaminophen 650 mg 650 mg PO Q12H 05/19/22 12/26/24 History tablet,extended release (Tylenol Arthritis Pain) duloxetine 30 mg capsule,delayed 30 mg PO DAILY 05/19/22 12/26/24 History release (Cymbalta) levothyroxine 112 mcg tablet 112 mcg PO DAILY #90 tabs 02/29/24 12/26/24 Rx cetirizine 10 mg capsule (All Day 10 mg PO DAILY PRN 06/19/24 12/26/24 History Allergy (cetirizine)) cholecalciferol (vitamin D3) 10 10 mcg PO DAILY 06/19/24 12/26/24 History mcg (400 unit) capsule multivitamin 1 tab PO DAILY 06/19/24 12/26/24 History azithromycin 250 mg tablet 250 mg PO .COMPLEX #12 tabs 12/26/24 12/26/24 Rx benzonatate 200 mg capsule 200 mg PO TID PRN cough #20 caps 12/26/24 12/26/24 Rx ibuprofen 200 mg capsule 200 mg Capsule#3 Samples 12/26/24 12/26/24 Sample Is last menstrual period known: No Post menopausal: Yes Patient : No Have you fallen in the past year?: No Nurse's Note: CHUNG, BA, ST, congest, ear pain, fever, cough for over 10 days. exposed to pneumonia, concern for same. current oral temp 102.5. given Ibuprofen 600mg po for fever, BA, CHUNG today at 1355. PFSH Medical History Nodular basal cell carcinoma Overweight (BMI 25.0-29.9) Menopause Postablative hypothyroidism History of gestational diabetes Surgical History H/O hand surgery H/O tubal ligation H/O breast augmentation H/O unilateral salpingectomy History of left salpingo-oophorectomy S/P FRANKY (total abdominal hysterectomy) Family History Mother Breast cancer Grandmother Cancer Other Diabetes Social History household members: spouse current occupational status: employed current occupation: [employer] Smoking Status: Former smoker alcohol intake: current alcohol intake frequency: a few times a month substance use type: does not use diet: other what type of physical activity do you participate in: none seatbelt use: always do you feel safe at home: Yes additional social history: - [employer] HPI Chief Complaint: CHUNG, BA, ST, congest, ear pain, fever, cough Details: ALEISHA OLIVEIRA CHRISTEN, is a 54 F who presents to the office today for initial evaluation at the [facility] for approximately 1-1/2-week history of progressively worsening facial pressure/congestion with purulent postnasal drip, CHUNG, BA, ST, AU pain, fever(? Tmax), cough - stating her daughter was recently diagnosed with pneumonia and is concerned for the same for herself. No complaints of nausea/vomiting/diarrhea. No complaints of chest pressure w/ shortness of breath/dyspnea on exertion. No other associated symptoms and no other alleviating/aggravating factors. ROS Const Constitutional: No other (as above) Exam Const General: cooperative, healthy appearing and no acute distress Nutritional Appearance: average body habitus Orientation: alert, awake and oriented x3 HENMT Head: normal to inspection Ears: hearing grossly normal bilaterally, external ears normal, TM's normal bilaterally and EAC's normal Nose: external nose normal, nares normal, septum normal and no nasal discharge Face and sinus: normal facial exam, bilateral maxillary sinuses palpable tender (with R>L maxillary fullness to palpation) and face symmetric Mouth: oral mucosae normal, lip normal, tongue normal and oropharynx normal Throat: posterior oropharynx normal, tonsils normal, uvula midline and postnasal drainage (moderate amount purulent) Eyes General: appearance normal, both eyes and all related structures Neck Neck: normal visual inspection, full ROM, no menin (more content not included)... Normal [facility] Serum or plasma thyroid stim ulating hormone (TSH) measurement (units/volume)Ordered By: Hardy Hernandez on 02-28-2024 TSH Qn 0.69 uIU/mL 0.358-3.74 [facility] Thin prep Papanicolaou smear with manual screeningOrdered By: Hardy Hernandez on 02-28-2024 Thin prep Papanicolaou smear with manual screening 0.99 ng/dL 0.76-1.46 [facility] Absolute lymphocyte countOrd ered By: Dr. Hernandez on 03-02-2023 Lymphocytes Auto (Unsp spec) [#/Vol] 2.36 10*3/uL 0.83-4.51 [facility] Basophil percentageOrdered B y: Dr. Hernandez on 03-02-2023 Basophils/100 WBC (Bld) 0.6 % 0-1 [facility] Eosinophils/100 WBC (Bld) 2.8 % 0-5 [facility] Neutrophils (Bld) [#/Vol] 3.4 10*3/uL 2.0-7.7 [facility] Neutrophils/100 WBC (Bld) 52.5 % 47-70 [facility] WBC (Bld) [#/Vol] 6.5 10*3/uL 4.4-11.0 [facility] Blood erythrocytes count (nu mber/volume)Ordered By: Dr. Hernandez on 03-02-2023 RBC (Bld) [#/Vol] 4.32 10*6/uL 4.2-5.4 [facility] Blood hemoglobin measurement (mass/volume)Ordered By: Dr. Hernandez on 03-02-2023 Hemoglobin (Bld) [Mass/Vol] 13.7 g/dL 12.0-15.0 [facility] Blood lymphocytes/100 leukoc ytesOrdered By: Dr. Hernandez on 03-02-2023 Lymphocytes/100 WBC (Bld) 36.1 % 19-41 [facility] Blood monocytes/100 leukocyt esOrdered By: Dr. Hernandez on 03-02-2023 Monocytes/100 WBC (Bld) 7.7 % 0-10 [facility] Blood platelet mean volumeOr dered By: Dr. Hernandez on 03-02-2023 Platelet mean volume (Bld) [Entitic vol] 10.2 fL 6.2-12.0 [facility] Determination of erythrocyte mean corpuscular volume (MCV)Ordered By: Dr. Hernandez on 03-02-2023 MCV (RBC) [Entitic vol] 95.1 fL 81-99 [facility] Hematocrit Auto (Bld) [Volum e fraction]Ordered By: Dr. Hernandez on 03-02-2023 Hematocrit (Bld) [Volume fraction] 41.1 % 37-47 [facility] - Chemistry and C hemistry - challengeOrdered By: Dr. Hernandez on 03-02-2023 Free T4 [Mass/Vol] 1.03 ng/dL 0.76-1.46 [facility] - Hematology and Cell countsOrdered By: Dr. Hernandez on 03-02-2023 Erythrocyte distribution width (RBC) [Entitic vol] 42.7 fL 35.1-43.9 [facility] Erythrocyte distribution width (RBC) [Ratio] 12.3 % 11.6-14.6 [facility] Immature granulocytes/100 WBC (Bld) 0.300 % 0.0-0.9 [facility] Comment on above: IG% - Immature Granu locytes (promyelocytes, myelocytes and metamyelocytes) > 1% indicates that a LEFT SHIFT is Present. MCH (RBC) [Entitic mass] 31.7 pg 27.0-32.0 [facility] Nucleated RBC/100 WBC (Bld) [Ratio] 0 % 0-5 [facility] MCHC Auto (RBC) [Mass/Vol]Or dered By: Dr. Hernandez on 03-02-2023 MCHC (RBC) [Mass/Vol] 33.3 g/dL 32-36 [facility] No Panel InformationOrdered By: Dr. Hernandez on 03-02-2023 Follicle Stimulating Hormone 61.1 mIU/mL [facility] Comment on above: NORMAL REFERENCE RAN [facility] FEMALE FOLLICULAR 2.3 - 12.6 mIU/mL MID-CYCLE PEAK 5.2 - 17.5 mIU/mL LUTEAL 1.7 - 12.9 mIU/mL POST-MENOPAUSAL ON MHT 5.9 - 72.8 mIU/mL NOT ON MHT 12.7 - 132.2 mlU/mL MALE 0.7 - 10.8 mIU/mL Luteinizing Hormone 49.9 mIU/mL [facility] Comment on above: NORMAL REFERENCE RAN [facility] FEMALE FOLLICULAR 1.9 - 26.2 mIU/mL MID-CYCLE PEAK 22.8 - 76.1 mIU/mL LUTEAL 0.6 - 16.6 mIU/mL POST-MENOPAUSAL ON MHT 1.1 - 52.4 mIU/mL NOT ON MHT 8.6 - 61.8 mIU/mL MALE 1.2 - 10.6 mIU/mL Thyroid Stimulating Hormone (TSH) 0.54 uIU/mL 0.358-3.74 [facility] Platelets bldOrdered By: Dr. Hernandez on 03-02-2023 Platelets (Bld) [#/Vol] 296 10*3/uL 150-450 [facility] .Auto Diffon 09-10-2022 Basophil, Absolute 0.1 10 3/mcL Normal 0.0-0.2 [facility] ([place]) Comment on above: Performed By: #### B MP, GFR #### [address] [address] Basophils/100 WBC (Bld) 0.8 % Normal 0.0-2.5 [facility] ([place]) Comment on above: Performed By: #### B MP, GFR #### [address] [address] Eosinophil, Absolute 0.3 10 3/mcL Normal 0.0-0.4 [facility] ([place]) Comment on above: Performed By: #### B MP, GFR #### [address] [address] Eosinophils/100 WBC (Bld) 3.9 % Normal 0.0-7.0 [facility] ([place]) Comment on above: Performed By: #### B MP, GFR #### [address] [address] Lymphocyte, Absolute 2.7 10 3/mcL Normal 0.8-3.9 [facility] ([place]) Comment on above: Performed By: #### B MP, GFR #### [address] [address] Lymphocytes/100 WBC (Bld) 38.6 % Normal 10.0-50.0 [facility] ([place]) Comment on above: Performed By: #### B MP, GFR #### [address] [address] Monocyte, Absolute 0.5 10 3/mcL Normal 0.2-1.0 [facility] ([place]) Comment on above: Performed By: #### B MP, GFR #### [address] [address] Monocytes/100 WBC (Bld) 7.7 % Normal 1.7-13.0 [facility] ([place]) Comment on above: Performed By: #### B MP, GFR #### [address] [address] Neutrophils/100 WBC (Bld) 49.0 % Normal 37.0-80.0 [facility] ([place]) Comment on above: Performed By: #### B MP, GFR #### [address] [address] .GFRon 09-10-2022 GFR 101 ml/min/1.73sqm Normal [facility] ([place]) Comment on above: Result Comment: GFR Population mean for , Non- Americans Ages 20-29 = 116 mL/min/1.73 sq.m. Ages 30-39 = 107 mL/min/1.73 sq.m. Ages 40-49 = 99 mL/min/1.73 sq.m. Ages 50-59 = 93 mL/min/1.73 sq.m. Ages 60-69 = 85 mL/min/1.73 sq.m. Ages 70+ = 75 mL/min/1.73 sq.m. Chronic Kidney Disease: Less than 60 mL/min/1.73 square meters End Stage Renal Disease: Less than 15 mL/min/1.73 square meters Performed By: #### B MP, GFR #### [address] [address] GFR Non- 83 ml/min/1.73sqm Normal [facility] ([place]) Comment on above: Result Comment: GFR Population mean for , Non- Americans Ages 20-29 = 116 mL/min/1.73 sq.m. Ages 30-39 = 107 mL/min/1.73 sq.m. Ages 40-49 = 99 mL/min/1.73 sq.m. Ages 50-59 = 93 mL/min/1.73 sq.m. Ages 60-69 = 85 mL/min/1.73 sq.m. Ages 70+ = 75 mL/min/1.73 sq.m. Chronic Kidney Disease: Less than 60 mL/min/1.73 square meters End Stage Renal Disease: Less than 15 mL/min/1.73 square meters Performed By: #### B MP, GFR #### [address] [place], [place] [address] .MDWon 09-10-2022 Monocyte Distribution Width 17.85 Normal 0.00-20.00 [facility] ([place]) Comment on above: Result Comment: For ED adult patients suspected of sepsis, MDW<=20.0 does not rule out sepsis or risk of sepsis Performed By: #### B MP, GFR #### [address] [address] .NEUABSon 09-10-2022 Neutrophil, Absolute 3.4 10 3/mcL Normal 2.9-6.2 [facility] ([place]) Comment on above: Performed By: #### B MP, GFR #### [address] [address] .Urinalysis Microscopic (AO) on 09-10-2022 UA Bacteria 4+ /hpf Abnormal [facility] ([place]) Comment on above: Performed By: #### U AMICAO, UA #### [address] [address] UA RBC 15-25 Abnormal None Seen [facility] ([place]) Comment on above: Performed By: #### U AMICAO, UA #### [address] [address] UA Squam Epithelial 15-25 Abnormal None Seen [facility] ([place]) Comment on above: Performed By: #### U AMICAO, UA #### [address] [address] UA WBC 0-5 Abnormal None Seen [facility] ([place]) Comment on above: Performed By: #### U AMICAO, UA #### [address] [address] BMPon 09-10-2022 BUN/Creatinine Ratio 21 ratio Normal 7-27 [facility] ([place]) Comment on above: Performed By: #### B MP, GFR #### [address] [address] Calcium [Mass/Vol] 8.6 mg/dL Normal 8.4-10.2 [facility] ([place]) Comment on above: Performed By: #### B MP, GFR #### [address] [address] Chloride [Moles/Vol] 106 mmol/L Normal 98-107 [facility] ([place]) Comment on above: Performed By: #### B MP, GFR #### [address] [address] CO2 [Moles/Vol] 26 mmol/L Normal 22-29 [facility] ([place]) Comment on above: Performed By: #### B MP, GFR #### [address] [address] Creatinine [Mass/Vol] 0.73 mg/dL Normal 0.55-1.02 [facility] ([place]) Comment on above: Performed By: #### B MP, GFR #### [address] [address] Electrolyte Balance 9.0 mEq/L Normal 4.0-15.0 [facility] ([place]) Comment on above: Performed By: #### B MP, GFR #### [address] [address] Glucose [Mass/Vol] 126 mg/dL High 70-105 [facility] ([place]) Comment on above: Performed By: #### B MP, GFR #### [address] [address] Potassium [Moles/Vol] 3.6 mmol/L Normal 3.5-5.1 [facility] [facility] ([place]) Comment on above: Performed By: #### B MP, GFR #### [address] [address] Sodium [Moles/Vol] 141 mmol/L Normal 136-145 [facility] ([place]) Comment on above: Performed By: #### B MP, GFR #### [address] [address] Urea nitrogen [Mass/Vol] 15 mg/dL Normal 7-18 [facility] ([place]) Comment on above: Performed By: #### B MP, GFR #### [address] [address] CBCon 09-10-2022 Erythrocyte distribution width (RBC) [Ratio] 12.7 % Normal 11.5-14.5 [facility] ([place] Comment on above: Performed By: #### B MP, GFR #### [address] [address] Hematocrit (Bld) [Volume fraction] 36.8 % Low 37.0-47.0 [facility] ([place] Comment on above: Performed By: #### B MP, GFR #### [address] [address] Hgb 12.6 G/dL Normal 12.0-16.0 [facility] ([place] Comment on above: Performed By: #### B MP, GFR #### [address] [address] MCH (RBC) [Entitic mass] 32.5 pg High 27.0-31.2 [facility] ([place] Comment on above: Performed By: #### B MP, GFR #### [address] [address] MCHC 34.3 G/dL Normal 33.0-37.0 [facility] ([place] Comment on above: Performed By: #### B MP, GFR #### [address] [address] MCV (RBC) [Entitic vol] 94.8 fL High 80.0-94.0 [facility] ([place] Comment on above: Performed By: #### B MP, GFR #### [address] [address] Platelet 335 10 3/mcL Normal 130-400 [facility] ([place] Comment on above: Performed By: #### B MP, GFR #### [address] [address] Platelet mean volume (Bld) [Entitic vol] 7.7 fL Normal 7.4-10.4 [facility] ([place] Comment on above: Performed By: #### B MP, GFR #### [address] [address] RBC 3.88 10 6/mcL Low 4.20-5.40 [facility] ([place] Comment on above: Performed By: #### B MP, GFR #### [place] [address] [place], [place] [address] WBC 6.9 10 3/mcL Normal 4.6-10.8 [facility] ([place] Comment on above: Performed By: #### B MP, GFR #### [place] [address] [place], [place] [address] CT ABDOMEN/PELVIS W/O CONTRA STon 09-10-2022 CT ABDOMEN/PELVIS W/O CONTRAST ORIGINAL EXAMINATION: CT OF THE ABDOMEN AND PELVIS WITHOUT CONTRAST 09/10/2022 2:55 pm TECHNIQUE: CT of the abdomen and pelvis was performed without the administration of intravenous contrast. Multiplanar reformatted images are provided for review. Automated exposure control, iterative reconstruction, and/or weight based adjustment of the mA/kV was utilized to reduce the radiation dose to as low as reasonably achievable. COMPARISON: None. HISTORY: ORDERING SYSTEM PROVIDED HISTORY: Reason for Exam: RIGHT flank pain FINDINGS: The heart is normal in size. No pericardial thickening. Small amount of pericardial fluid. Bibasilar atelectasis. The abdominal aorta is normal in caliber with minimal atherosclerotic disease. No pathologically enlarged lymphadenopathy. The visualized liver is normal in contour and attenuation. The gallbladder is unremarkable. The spleen, pancreas, and adrenals are unremarkable. Status post hysterectomy. The right kidney is slightly larger than left. No hydronephrosis or renal calculi. There is a mildly obstructive 3 mm stone in the distal right ureter at the ureterovesicular junction. The right ureter is mildly dilated up to 1 cm. The left ureter is unremarkable. The bladder is not well distended and limits evaluation. No intraperitoneal free air or fluid. The large and small bowel are normal in caliber without signs of obstruction. There is fatty infiltration of the terminal ileum, likely due to remote inflammation. The appendix appears unremarkable. Small hiatal hernia. The stomach and duodenum are unremarkable. Small fat containing umbilical hernia. Mild degenerative changes of the spine. Osseous structures are intact. Likely bone island in the posterior left and right iliac bones. No soft tissue abnormality. Right breast implant noted. IMPRESSION: 1. Mildly obstructive distal right ureteral stone at the ureterovesicular junction. 2. Fatty infiltration of the terminal ileum, likely from remote inflammation. Other incidental findings as above. I have personally reviewed the images of this examination and agree with the resident's findings and interpretation. Interpreted by: Adin Babcock MD Preliminary Report By: Js Johnson Electronically signed By Adin Babcock MD Dictated Date: 09/10/2022 2:58:45 PM Prelim Date: 09/10/2022 3:16:33 PM Sign Date: 09/10/2022 3:18:34 PM Ordering Provider: MONET CREWS [facility] ([place]) LABORATORYOrdered By: An Cornell on 09-10-2022 Appearance (U) Cloudy *ABN* (09/10/22 2:23 PM) Invalid Interpretation Code Clear AO Auto Urine SS Bacteria LM.HPF (Urine sed) [#/Area] 4 /[HPF] Invalid Interpretation Code AO Auto Urine SS Bilirubin Ql (U) Negative (09/10/22 2:23 PM) Invalid Interpretation Code Negative AO Auto Urine SS Calcium [Mass/Vol] 8.6 mg/dL Invalid Interpretation Code 8.4 - 10.2 mg/dL AO ADM SS Chloride [Moles/Vol] 106 mmol/L Invalid Interpretation Code 98 - 107 mmol/L AO ADM SS CO2 [Moles/Vol] 26 mmol/L Invalid Interpretation Code 22 - 29 mmol/L AO ADM SS Color (U) Yellow (09/10/22 2:23 PM) Invalid Interpretation Code AO Auto Urine SS Creatinine [Mass/Vol] 0.73 mg/dL Invalid Interpretation Code 0.55 - 1.02 mg/dL AO ADM SS Electrolyte Balance 9.0 mEq/L Invalid Interpretation Code 4.0 - 15.0 mEq/L AO ADM SS Glucose [Mass/Vol] 126 mg/dL Invalid Interpretation Code 70 - 105 mg/dL AO ADM SS Glucose Test strip (U) [Mass/Vol] Negative Invalid Interpretation Code Negativemg /dL AO Auto Urine SS Hemoglobin Auto test strip (U) [Mass/Vol] Moderate *ABN* (09/10/22 2:23 PM) Invalid Interpretation Code Negative AO Auto Urine SS Ketones Ql (U) Negative Invalid Interpretation Code Negativemg /dL AO Auto Urine SS Potassium [Moles/Vol] 3.6 mmol/L Invalid Interpretation Code 3.5 - 5.1 mmol/L AO ADM SS Sodium [Moles/Vol] 141 mmol/L Invalid Interpretation Code 136 - 145 mmol/L AO ADM SS UA Leuk Est Negative (09/10/22 2:23 PM) Invalid Interpretation Code Negative AO Auto Urine SS UA Nitrite Negative (09/10/22 2:23 PM) Invalid Interpretation Code Negative AO Auto Urine SS UA pH 7.0 (09/10/22 2:23 PM) Invalid Interpretation Code 5.0 - 8.0 AO Auto Urine SS UA Protein 30 mg/dL Invalid Interpretation Code Negativemg /dL AO Auto Urine SS UA RBC 15-25 /HPF Invalid Interpretation Code None Seen/HPF AO Auto Urine SS UA Spec Grav 1.025 (09/10/22 2:23 PM) Invalid Interpretation Code 1.015-1.02 5 AO Auto Urine SS UA Specimen Type Void (09/10/22 2:23 PM) Invalid Interpretation Code AO Auto Urine SS UA Squam Epithelial 15-25 /HPF Invalid Interpretation Code None Seen/HPF AO Auto Urine SS UA Urobilinogen 0.2 E.U./dL Invalid Interpretation Code 0.2-1.0E.U ./dL AO Auto Urine SS Urea nitrogen [Mass/Vol] 15 mg/dL Invalid Interpretation Code 7 - 18 mg/dL AO ADM SS Urea nitrogen/Creatinine [Mass ratio] 21 ratio Invalid Interpretation Code 7 - 27 ratio AO ADM SS WBC LM.HPF (Urine sed) [#/Area] 0-5 /HPF Invalid Interpretation Code None Seen/HPF AO Auto Urine SS LABORATORYOrdered By: Selma Monson on 09-10-2022 Basophil, Absolute 0.1 103/mcL Invalid Interpretation Code 0.0 - 0.2 10^3/mcL AO Workflow SS Basophils/100 WBC (Bld) 0.8 % Invalid Interpretation Code 0.0 - 2.5 % AO Workflow SS Eosinophil, Absolute 0.3 103/mcL Invalid Interpretation Code 0.0 - 0.4 10^3/mcL AO Workflow SS Eosinophils/100 WBC (Bld) 3.9 % Invalid Interpretation Code 0.0 - 7.0 % AO Workflow SS Erythrocyte distribution width (RBC) [Ratio] 12.7 % Invalid Interpretation Code 11.5 - 14.5 % AO Workflow SS Hematocrit (Bld) [Volume fraction] 36.8 % Invalid Interpretation Code 37.0 - 47.0 % AO Workflow SS Hemoglobin (Bld) [Mass/Vol] 12.6 G/dL Invalid Interpretation Code 12.0 - 16.0 G/dL AO Workflow SS Lymphocyte, Absolute 2.7 103/mcL Invalid Interpretation Code 0.8 - 3.9 10^3/mcL AO Workflow SS Lymphocytes/100 WBC (Bld) 38.6 % Invalid Interpretation Code 10.0 - 50.0 % AO Workflow SS MCH (RBC) [Entitic mass] 32.5 pg Invalid Interpretation Code 27.0 - 31.2 pg AO Workflow SS MCHC 34.3 G/dL Invalid Interpretation Code 33.0 - 37.0 G/dL AO Workflow SS MCV (RBC) [Entitic vol] 94.8 fL Invalid Interpretation Code 80.0 - 94.0 fL AO Workflow SS Monocyte distribution width Auto (Bld) [Entitic vol] 17.85 Invalid Interpretation Code 0.00 - 20.00 AO Workflow SS Comment on above: Result Comment: For ED adult patients suspected of sepsis, MDW<=20.0 does not rule out sepsis or risk of sepsis Monocyte, Absolute 0.5 103/mcL Invalid Interpretation Code 0.2 - 1.0 10^3/mcL AO Workflow SS Monocytes/100 WBC (Bld) 7.7 % Invalid Interpretation Code 1.7 - 13.0 % AO Workflow SS Neutrophil, Absolute 3.4 103/mcL Invalid Interpretation Code 2.9 - 6.2 10^3/mcL AO Workflow SS Neutrophils/100 WBC (Bld) 49.0 % Invalid Interpretation Code 37.0 - 80.0 % AO Workflow SS Platelet mean volume (Bld) [Entitic vol] 7.7 fL Invalid Interpretation Code 7.4 - 10.4 fL AO Workflow SS Platelets (Bld) [#/Vol] 335 103/mcL Invalid Interpretation Code 130 - 400 10^3/mcL AO Workflow SS RBC (Bld) [#/Vol] 3.88 106/mcL Invalid Interpretation Code 4.20 - 5.40 10^6/mcL AO Workflow SS WBC (Bld) [#/Vol] 6.9 103/mcL Invalid Interpretation Code 4.6 - 10.8 10^3/mcL AO Workflow SS LABORATORYOrdered By: SYSTEM SYSTEM on 09-10-2022 GFR 101 ml/min/1.73sqm Invalid Interpretation Code AO Chemistry S GFR Non- 83 ml/min/1.73sqm Invalid Interpretation Code AO Chemistry S UAon 09-10-2022 Color (U) Yellow Normal [facility] ([place]) Comment on above: Performed By: #### U AMICAO, UA #### [place] [address] [address] Glucose (U) [Mass/Vol] Negative Normal Negative [facility] ([place]) Comment on above: Performed By: #### U AMICAO, UA #### [place] [address] [address] Ketones Ql (U) Negative Normal Negative [facility] ([place] Comment on above: Performed By: #### U AMICAO, UA #### [place] [address] [address] UA Appear Cloudy Abnormal Clear [facility] ([place] Comment on above: Performed By: #### U AMICAO, UA #### [place] [address] [address] UA Blood Moderate Abnormal Negative [facility] ([place]) Comment on above: Performed By: #### U AMICAO, UA #### [place] [address] [address] UA Leuk Est Negative Normal Negative [facility] ([place] Comment on above: Performed By: #### U AMICAO, UA #### [place] [address] [address] UA Nitrite Negative Normal Negative [facility] ([place] Comment on above: Performed By: #### U AMICAO, UA #### [place] [address] [address] UA pH 7.0 Normal 5.0 - 8.0 [facility] ([place] Comment on above: Performed By: #### U AMICAO, UA #### [place] [address] [address] UA Protein 30 mg/dL Normal Negative [facility] ([place] Comment on above: Performed By: #### U AMICAO, UA #### [place] [address] [address] UA Spec Grav 1.025 Normal 1.015-1.02 5 [facility] ([place] Comment on above: Performed By: #### U AMICAO, UA #### [place] [address] [place], [place] [address] UA Specimen Type Void Normal [facility] ([place] Comment on above: Performed By: #### U AMICAO, UA #### [place] [address] [place], [place] [address] UA Urobilinogen 0.2 E.U./dL Normal 0.2-1.0 [facility] ([place]) Comment on above: Performed By: #### U AMICAO, UA #### [facility] [address] [place], [place] [address] Urobilinogen (U) [Mass/Vol] Negative Normal Negative [facility] ([place] Comment on above: Performed By: #### U AMICAO, UA #### [place] [address] [place], [place] [address] Basophil percentageon 2021 WBC (Bld) [#/Vol] 7.6 10*3/uL 4.4-11.0 [facility] Work Phone: Blood erythrocytes count (nu mber/volume)on 03-02-2022 RBC (Bld) [#/Vol] 4.86 10*6/uL 4.2-5.4 [facility] Work Phone: Blood hemoglobin measurement (mass/volume)on 03-02-2022 Hemoglobin (Bld) [Mass/Vol] 15.7 g/dL 12.0-15.0 [facility] Work Phone: Blood platelet mean volumeon 03-02-2022 Platelet mean volume (Bld) [Entitic vol] 10.3 fL 6.2-12.0 [facility] Work Phone: Determination of erythrocyte mean corpuscular volume (MCV)on 03-02-2022 MCV (RBC) [Entitic vol] 95.9 fL 81-99 [facility] Work Phone: Erythrocyte sedimentation ra prema 03-02-2022 ESR (Bld) [Velocity] 8 mm/h 0-30 [facility] Work Phone: Hematocrit Auto (Bld) [Volum e fraction]on 03-02-2022 Hematocrit (Bld) [Volume fraction] 46.6 % 37-47 [facility] Work Phone: Laboratory - Chemistry and C hemistry - challengeon 03-02-2022 Cobalamin (Vitamin B12) [Mass/Vol] 653 pg/mL 211-911 [facility] Work Phone: Free T4 [Mass/Vol] 1.19 ng/dL 0.76-1.46 [facility] Work Phone: Laboratory - Hematology and Cell countson 03-02-2022 Erythrocyte distribution width (RBC) [Entitic vol] 42.5 fL 35.1-43.9 [facility] Work Phone: Erythrocyte distribution width (RBC) [Ratio] 12.0 % 11.6-14.6 [facility] Work Phone: MCH (RBC) [Entitic mass] 32.3 pg 27.0-32.0 [facility] Work Phone: MCHC Auto (RBC) [Mass/Vol]on 03-02-2022 MCHC (RBC) [Mass/Vol] 33.7 g/dL 32-36 [facility] Work Phone: No Panel Informationon 03-02 Thyroid Stimulating Hormone (TSH) 3.04 uIU/mL 0.358-3.74 [facility] Work Phone: Vitamin D 25-Hydroxy 55.3 ng/mL [facility] Work Phone: Comment on above: Vitamin D 25(OH) Sta tus Range Deficiency <20 ng/mL (50nmol/L) Insufficiency 20 - 30 ng/mL (50 - 75 nmol/L) Sufficiency 30 - 100 ng/mL (75 - 250 nmol/L) Toxicity >100 ng/mL (>250 nmol/L) Anti-Nuclear Antibody Screen Negative Negative [facility] Work Phone: Comment on above: Performed at: [facility] [id number] [place], [place] [id number] Director: Tayo Villalta PhD, Phone: [phone] Platelets bldon 03-02-2022 Platelets (Bld) [#/Vol] 325 10*3/uL 150-450 [facility] Work Phone: Serum or plasma C reactive p rotein measurement (mass/volume)on 03-02-2022 CRP [Mass/Vol] mg/L 0.0-3.0 [facility] Work Phone: Comment on above: C-Reactive Protein ( CRP) provides useful information for thediagnosis, therapy and monitoring of inflammatory processesand associated diseases. For the evaluation of Relative Riskfor Cardiovascular Disease, a High Sensitivity CRP (HSCRP)should be ordered. Serum rheumatoid factor dete ctionon 03-02-2022 Rheumatoid factor Ql (S) < 10.0 IU/mL <15 [facility] Work Phone: Thin prep Papanicolaou smear with manual screeningon 03-02-2022 Thin prep Papanicolaou smear with manual screening Negative . [facility] Work Phone: Comment on above: HLA-B*27 [id number] allele interpretation for all loci based on IMGT/HLAdatabase version 3.44This test was developed and its performance characteristicsdetermined by [facility]. It has not been cleared or approvedby the Food and Drug Administration.[facility] CLIA ID Number [id number] test was performed using PCR (Polymerase ChainReaction)/SSOP (Sequence Specific Oligonucleotide Probes)technique. SBT (Sequence Based Typing) and/or SSP(Sequence Specific Primers) may be used as supplementalmethods when necessary. Please contact [facility] CustomerService at if you have any questions. Director of [facility] Laboratory Dr Willie Barriga, PhDPerformed at: 2[facility] [id number] [place], [place] [id number] Director: Willie Barriga PhD, Phone: [phone] Culture, urine Bacteria identified Cx Nom (U) Positive [facility] Work Phone: Vital Signs Date Time Vital Sign Value Performing Clinician Facility 09-10-2025 14:10-0400 Body height 157.[address] Ana Laura Burk MD Work Phone: 1(305)182-738908 [place] [address] 09-10-2025 14:10-0400 Body mass index (BMI) [Ratio] 29 kg/m2 Dr. Ana Laura Burk MD Work Phone: 7(306)033-815108 [place] [address] 09-10-2025 14:10-0400 Body weight 71.[address] Ana Laura Burk MD Work Phone: 1(975)095-432608 [place] [address] 09-10-2025 14:10-0400 Diastolic blood pressure 84 mm[Hg] Dr. Ana Laura Burk MD Work Phone: 2(413)175-398008 [place] [address] 09-10-2025 14:10-0400 Systolic blood pressure 139 mm[Hg] Dr. Ana Laura Burk MD Work Phone: 6(068)566-656208 [place] [address] 06-22-2025 14:42-0400 Body height 157.[address] Ana Laura Burk MD Work Phone: 5(977)417-755008 [place] [address] 06-22-2025 14:42-0400 Body mass index (BMI) [Ratio] 28.8 kg/m2 Dr. Ana Laura Burk MD Work Phone: 8(752)471-158908 [place] [address] 06-22-2025 14:42-0400 Body weight 71.[address] Ana Laura Burk MD Work Phone: 4(511)517-501408 [place] [address] 06-22-2025 14:42-0400 Diastolic blood pressure 84 mm[Hg] Dr. Ana Laura Burk MD Work Phone: 1(191)453-286908 [place] [address] 06-22-2025 14:42-0400 Systolic blood pressure 137 mm[Hg] Dr. Ana Laura Burk MD Work Phone: 5(050)080-042308 [place] [address] 04-13-2025 15:02-0400 Body height 157.[address] Ana Laura Burk MD Work Phone: 0(452)606-632008 [place] [address] 04-13-2025 15:02-0400 Body mass index (BMI) [Ratio] 28.9 kg/m2 Dr. Ana Laura Burk MD Work Phone: [facility] 04-13-2025 15:02-0400 Body weight 71.[address] Ana Laura Burk MD Work Phone: [facility] 04-13-2025 15:02-0400 Diastolic blood pressure 81 mm[Hg] Dr. Ana Laura Burk MD Work Phone: [facility] 04-13-2025 15:02-0400 Systolic blood pressure 135 mm[Hg] Dr. Ana Laura Burk MD Work Phone: 6(076)521-948357 [place] [address] 04-13-2025 12:03-0400 Body temperature 97.2 [degF] Dr. Ana Laura Burk MD Work Phone: 1(860)724-049157 [place] [address] 04-13-2025 12:03-0400 Diastolic blood pressure 78 mm[Hg] Dr. Ana Laura Burk MD Work Phone: 9(586)088-103257 [place] [address] 04-13-2025 12:03-0400 Heart rate 77 /min Dr. Ana Laura Burk MD Work Phone: [facility] 04-13-2025 12:03-0400 Respiratory rate 16 /min Dr. Ana Laura Burk MD Work Phone: [facility] 04-13-2025 12:03-0400 SaO2% (BldA) [Mass fraction] 97 % Dr. Ana Laura Burk MD Work Phone: [facility] 04-13-2025 12:03-0400 Systolic blood pressure 121 mm[Hg] Dr. Ana Laura Burk MD Work Phone: [facility] 03-16-2025 13:59-0400 Body mass index (BMI) [Ratio] 29.3 kg/m2 Dr. Ana Laura Burk MD Work Phone: [facility] 03-16-2025 13:59-0400 Body weight 72.[address] Ana Laura Burk MD Work Phone: [facility] 03-16-2025 13:59-0400 Diastolic blood pressure 84 mm[Hg] Dr. Ana Laura Burk MD Work Phone: 6(463)153-548257 [place] [address] 03-16-2025 13:59-0400 Systolic blood pressure 150 mm[Hg] Dr. Ana Laura Burk MD Work Phone: 3(491)310-751857 [place] [address] 02-27-2025 15:52-0400 Body height 157.[address] Ana Laura Burk MD Work Phone: 8(661)493-391108 [place] [address] 02-27-2025 15:52-0400 Body mass index (BMI) [Ratio] 29.2 kg/m2 Dr. Ana Laura Burk MD Work Phone: 6(632)437-699408 [place] [address] 02-27-2025 15:52-0400 Body weight 72.[address] Ana Laura Burk MD Work Phone: 6(658)623-345708 [place] [address] 02-27-2025 15:52-0400 Diastolic blood pressure 83 mm[Hg] Dr. Ana Laura Burk MD Work Phone: 2(988)921-865108 [place] [address] 02-27-2025 15:52-0400 Heart rate 75 /min Dr. Ana Laura Burk MD Work Phone: 9(317)489-488008 [place] [address] 02-27-2025 15:52-0400 SaO2% (BldA) [Mass fraction] 95 % Dr. Ana Laura Burk MD Work Phone: 2(814)563-963308 [place] [address] 02-27-2025 15:52-0400 Systolic blood pressure 125 mm[Hg] Dr. Ana Laura Burk MD Work Phone: 4(347)016-784808 [place] [address] 02-12-2025 15:22-0400 Body mass index (BMI) [Ratio] 29.1 kg/m2 Dr. Ana Laura Burk MD Work Phone: 4(994)546-858208 [place] [address] 02-12-2025 15:22-0400 Body weight 72.[address] Ana Laura Burk MD Work Phone: 1(574)176-781908 [place] [address] 02-12-2025 15:22-0400 Diastolic blood pressure 87 mm[Hg] Dr. Ana Laura Burk MD Work Phone: 5(334)236-479508 [place] [address] 02-12-2025 15:22-0400 Systolic blood pressure 134 mm[Hg] Dr. Ana Laura Burk MD Work Phone: 2(617)507-821557 [place] [address] 12-26-2024 14:05-0500 Body mass index (BMI) [Ratio] 29.5 kg/m2 Dr. Ana Laura Burk MD Work Phone: 2(475)019-714157 [place] [address] 12-26-2024 14:05-0500 Body temperature 102.5 [degF] Dr. Ana Laura Burk MD Work Phone: 2(892)389-330833 [address] 12-26-2024 14:05-0500 Body weight 73.[address] Ana Laura Burk MD Work Phone: 9(977)184-917008 [place] [address] 12-26-2024 14:05-0500 Diastolic blood pressure 88 mm[Hg] Dr. Ana Laura Burk MD Work Phone: 0(044)005-325857 [place] [address] 12-26-2024 14:05-0500 Heart rate 81 /min Dr. Ana Laura Burk MD Work Phone: 3(281)058-990957 [place] [address] 12-26-2024 14:05-0500 Respiratory rate 16 /min Dr. Ana Laura Burk MD Work Phone: 1(759)468-072033 [address] 12-26-2024 14:05-0500 SaO2% (BldA) [Mass fraction] 97 % Dr. Ana Laura Burk MD Work Phone: 7(356)582-840357 [place] [address] 12-26-2024 14:05-0500 Systolic blood pressure 142 mm[Hg] Dr. Ana Laura Burk MD Work Phone: 9(714)579-948557 [place] [address] 02-28-2024 15:48-0400 Body height 157.[address] Ana Laura Burk Work Phone: 7(490)350-184557 [place] [address] 02-28-2024 15:48-0400 Body mass index (BMI) [Ratio] 29.8 kg/m2 Dr. Ana Laura Burk Work Phone: 3(962)166-555157 [place] [address] 02-28-2024 15:48-0400 Body temperature 99.6 [degF] Dr. Ana Laura Burk Work Phone: [facility] 02-28-2024 15:48-0400 Body weight 73.[address] Ana Laura Burk Work Phone: [facility] 02-28-2024 15:48-0400 Diastolic blood pressure 85 mm[Hg] Dr. Ana Laura Burk Work Phone: [facility] 02-28-2024 15:48-0400 Heart rate 70 /min Dr. Ana Laura Burk Work Phone: [facility] 02-28-2024 15:48-0400 Respiratory rate 16 /min Dr. Ana Laura Burk Work Phone: [facility] 02-28-2024 15:48-0400 SaO2% (BldA) [Mass fraction] 95 % Dr. Ana Laura Burk Work Phone: [facility] 02-28-2024 15:48-0400 Systolic blood pressure 135 mm[Hg] Dr. Ana Laura Burk Work Phone: [facility] 06-03-2023 15:30-0400 Body height 157.[address] Ana Laura Burk Work Phone: [facility] 06-03-2023 15:29-0400 Body mass index (BMI) [Ratio] 29.5 kg/m2 Dr. Ana Laura Burk Work Phone: [facility] 06-03-2023 15:29-0400 Body weight 73.[address] Ana Laura Burk Work Phone: [facility] 06-03-2023 15:29-0400 Diastolic blood pressure 80 mm[Hg] Dr. Ana Laura Burk Work Phone: [facility] 06-03-2023 15:29-0400 Systolic blood pressure 120 mm[Hg] Dr. Ana Laura Burk Work Phone: [facility] 03-08-2023 13:48-0400 Body height 157.[address] Ana Laura Burk Work Phone: [facility] 03-08-2023 13:48-0400 Body mass index (BMI) [Ratio] 27.4 kg/m2 Dr. Ana Laura Burk Work Phone: [facility] 03-08-2023 13:48-0400 Body weight 68.[address] Ana Laura Burk Work Phone: [facility] 09-10-2022 15:36-0400 Diastolic blood pressure 78 mm[Hg] MONET CREWS MD [facility] 09-10-2022 15:36-0400 Heart rate 75 /min MONET CREWS MD [facility] 09-10-2022 15:36-0400 Respiratory rate 18 /min MONET CREWS MD [facility] 09-10-2022 15:36-0400 Systolic blood pressure 138 mm[Hg] MONET CREWS MD [facility] 09-10-2022 14:08-0400 Body temperature 96.98 [degF] MONET CREWS MD [facility] 09-10-2022 14:08-0400 Diastolic blood pressure 80 mm[Hg] MONET CREWS MD [facility] 09-10-2022 14:08-0400 Heart rate 82 /min MONET CREWS MD [facility] 09-10-2022 14:08-0400 Respiratory rate 18 /min MONET CREWS MD [facility] 09-10-2022 14:08-0400 Systolic blood pressure 145 mm[Hg] MONET CREWS MD [facility] 08-17-2022 16:26-0400 Body height 157.[address] Ana Laura Burk Work Phone: [facility] Work Phone: 08-17-2022 16:25-0400 Body mass index (BMI) [Ratio] 28.8 kg/m2 Dr. Ana Laura Burk Work Phone: [facility] Work Phone: 08-17-2022 16:25-0400 Body weight 71.[address] Ana Laura Burk Work Phone: [facility] Work Phone: 08-17-2022 16:25-0400 Diastolic blood pressure 96 mm[Hg] Dr. Ana Laura Burk Work Phone: [facility] Work Phone: 08-17-2022 16:25-0400 Systolic blood pressure 141 mm[Hg] Dr. Ana Laura Burk Work Phone: [facility] Work Phone: 05-19-2022 08:51-0400 Body height 157.[address] Ana Laura Burk Work Phone: [facility] Work Phone: 05-19-2022 08:51-0400 Body mass index (BMI) [Ratio] 30 kg/m2 Dr. Ana Laura Burk Work Phone: [facility] Work Phone: 05-19-2022 08:51-0400 Body weight 74.[address] Ana Laura Burk Work Phone: [facility] Work Phone: 05-19-2022 08:51-0400 Diastolic blood pressure 76 mm[Hg] Dr. Ana Laura Burk Work Phone: [facility] Work Phone: 05-19-2022 08:51-0400 Systolic blood pressure 118 mm[Hg] Dr. Ana Laura Burk Work Phone: [facility] Work Phone: 03-02-2022 11:13-0400 Body mass index (BMI) [Ratio] 28.6 kg/m2 Dr. Ana Laura Burk Work Phone: [facility] Work Phone: 03-02-2022 11:13-0400 Body temperature 97.3 [degF] Dr. Ana Laura Burk Work Phone: [facility] Work Phone: 03-02-2022 11:13-0400 Body weight 74.[address] Ana Laura Burk Work Phone: [facility] Work Phone: 03-02-2022 11:13-0400 Diastolic blood pressure 80 mm[Hg] Dr. Ana Laura Burk Work Phone: [facility] Work Phone: 03-02-2022 11:13-0400 Heart rate 70 /min Dr. Ana Laura Burk Work Phone: [facility] Work Phone: 03-02-2022 11:13-0400 Respiratory rate 18 /min Dr. AnaL aura Burk Work Phone: [facility] Work Phone: 03-02-2022 11:13-0400 SaO2% (BldA) [Mass fraction] 98 % Dr. Ana Laura Burk Work Phone: [facility] Work Phone: 03-02-2022 11:13-0400 Systolic blood pressure 112 mm[Hg] Dr. Ana Laura Burk Work Phone: [facility] Work Phone: 03-02-2022 11:13-0400 Body height 161.[address] Ana Laura Burk Work Phone: [facility] Work Phone: 03-02-2022 11:13-0400 Body mass index (BMI) [Ratio] 28.6 kg/m2 Dr. Ana Laura Burk Work Phone: [facility] Work Phone: 03-02-2022 11:13-0400 Body temperature 97.3 [degF] Dr. Ana Laura Burk Work Phone: [facility] Work Phone: 03-02-2022 11:13-0400 Body weight 74.[address] Ana Laura Burk Work Phone: [facility] Work Phone: 03-02-2022 11:13-0400 Diastolic blood pressure 80 mm[Hg] Dr. Ana Laura Burk Work Phone: [facility] Work Phone: 03-02-2022 11:13-0400 Heart rate 70 /min Dr. Ana Laura Burk Work Phone: [facility] Work Phone: 03-02-2022 11:13-0400 Respiratory rate 18 /min Dr. Ana Laura Burk Work Phone: [facility] Work Phone: 03-02-2022 11:13-0400 SaO2% (BldA) [Mass fraction] 98 % Dr. Ana Laura Burk Work Phone: [facility] Work Phone: 03-02-2022 11:13-0400 Systolic blood pressure 112 mm[Hg] Dr. Ana Laura Burk Work Phone: [facility] Work Phone: Encounters Encounter Date Encounter Type Care Provider Facility Start: 09-21-2025 End: 09-21-2025 ambulatory Kandy Disla Facility:[facility] Start: 09-10-2025 End: 09-10-[address] Kandy Disla MD -[facility] Work Phone: Start: 09-10-2025 End: 09-10-[address] Ana Laura Burk MD Work Phone: -[facility] Start: 08-10-2025 End: 08-10-[address] Ana Laura Burk MD Work Phone: -Ultrasound [facility] Start: 08-10-2025 End: 08-10-[address] Kena Booth MD -Ultrasound [facility] Work Phone: Start: 08-10-2025 End: 08-10-2025 ambulatory Kena Booth Facility:[facility] Start: 06-22-2025 End: 06-22-[address] Kandy Disla MD -[facility] Work Phone: Start: 06-22-2025 End: 06-22-[address] Kandy Disla MD [facility] Start: 06-22-2025 End: 06-22-[address] Ana Laura Burk MD Work Phone: -[facility] Start: 04-13-2025 End: 04-13-[address] Kandy Disla MD -[facility] Work Phone: Start: 04-13-2025 End: 04-13-[address] Ana Laura Burk MD Work Phone: [facility] Work Phone: Start: 04-13-2025 End: 04-13-[address] Hardy Hernandez MD -Medical Out Work Phone: Start: 04-13-2025 End: 04-13-[address] Ana Laura Burk MD Work Phone: [facility] Work Phone: Start: 03-16-2025 End: 03-16-[address] Kandy Disla MD -Laboratory Specimen Work Phone: Start: 03-16-2025 End: 03-16-[address] Kandy Disla MD -[facility] Work Phone: Start: 03-16-2025 End: 03-16-2025 ambulatory Ana Laura Burk Facility:[facility] Start: 03-16-2025 End: 03-16-2025 ambulatory Kandy Disla Facility:[facility] Start: 02-28-2025 End: 02-28-[address] Ana Laura Burk MD Work Phone: [facility] Work Phone: Start: 02-28-2025 End: 02-28-[address] Hardy Hernandez [facility] Work Phone: Start: 02-27-2025 End: 02-27-[address] Hardy Hernandez MD -[facility] Work Phone: Start: 02-27-2025 End: 02-28-2025 ambulatory Ana Laura Burk Facility:[facility] Start: 02-12-2025 End: 02-12-[address] Kandy Disla MD -[facility] Work Phone: Start: 02-12-2025 End: 02-12-2025 ambulatory Ana Laura Burk Facility:[facility] Start: 12-26-2024 End: 12-26-2024 Patient encounter procedure Marty BYRD -[facility] Work Phone: Start: 12-26-2024 End: 12-26-2024 ambulatory Ana Laura Burk Facility:[facility] Start: 12-26-2024 End: 12-26-2024 ambulatory Marty BYRD Facility:[facility] Start: 03-29-2024 End: 03-29-[address] Ana Laura Burk Work Phone: [facility] Work Phone: Start: 03-29-2024 End: 03-29-[address] Ana Laura Burk Work Phone: [facility]-Outpatient Bone Densitometry Work Phone: Start: 02-28-2024 End: 02-28-[address] Ana Laura Burk Work Phone: [facility] Work Phone: Start: 02-28-2024 End: 02-28-[address] Ana Laura Burk Work Phone: [facility] Work Phone: Start: 06-21-2023 End: 06-21-[address] Ana Laura Burk Work Phone: [facility] Work Phone: Start: 06-21-2023 End: 06-21-[address] Ana Laura Burk Work Phone: [facility]-Outpatient Breast Imaging Work Phone: Start: 06-03-2023 End: 06-03-[address] Ana Laura Burk Work Phone: [facility] Work Phone: Start: 03-08-2023 End: 03-08-[address] Ana Laura Burk Work Phone: [facility] Start: 03-02-2023 End: 03-02-[address] Ana Laura Burk Work Phone: [facility] Work Phone: Start: 03-02-2023 End: 03-02-[address] Ana Laura Burk Work Phone: [facility] Start: 03-01-2023 End: 03-01-[address] Ana Laura Burk Work Phone: [facility] Start: 09-10-2022 End: 09-10-2022 Emergency department patient visit MONET CREWS MD Facility:[facility] Start: 09-10-2022 End: 09-10-2022 Emergency department patient visit MONET CREWS MD [facility] Start: 09-03-2022 End: 09-03-[address] Ana Laura Burk Work Phone: [facility] Work Phone: Start: 09-03-2022 End: 09-03-[address] Ana Laura Burk Work Phone: [facility]-Laboratory, Specimen Start: 08-17-2022 End: 08-17-[address] Ana Laura Burk [facility] Start: 06-03-2022 End: 06-03-[address] Ana Laura Burk Work Phone: [facility]-Outpatient Breast Imaging Start: 05-19-2022 End: 05-19-[address] Ana Laura Burk [facility] Phone[facility] Start: 05-15-2022 Non-patient / Non-visit Dr. Ana Laura Burk Work Phone: [facility] Start: 05-15-2022 End: 05-15-[address] Ana Laura Burk Work Phone: [facility]-Pulmonary Services/Neurology Start: 03-13-2022 End: 03-13-[address] Ana Laura Burk Work Phone: [facility]-MRI - [facility] Start: 03-02-2022 End: 03-02-[address] Ana Laura Burk Work Phone: [facility] Start: 03-02-2022 End: 03-02-[address] Ana Laura Burk Work Phone: [facility]-Radiology, [place] Procedures Date Procedure Procedure Detail Performing Clinician Start: 08-10-2025 US scan of thyroid Dr. Ana Laura Burk MD Work Phone: Start: 02-28-2025 Vitamin D, 25-hydrox y measurement Dr. Ana Laura Burk MD Work Phone: Comment on above: Vitamin D StatusDefi ciency: <20 ng/mL (50nmol/L)Insufficiency: 20-30 ng/mL (50-75 nmol/L)Sufficiency: 30-100 ng/mL (75-250 nmol/L)Toxicity: >100 ng/mL (>250 nmol/L) Start: 12-26-2024 X-ray of chest, PA a nd lateral views Dr. Ana Laura Burk MD Work Phone: Start: 03-29-2024 Dual energy X-ray absorptiometry Dr. Ana Laura Burk Work Phone: Start: 06-21-2023 Screening mammography Ashley Burk Work Phone: Start: 03-08-2023 X-ray of cervical spine Dr. Ana Laura Burk Work Phone: Start: 06-03-2022 Screening mammography Ashley Burk Work Phone: Start: 03-13-2022 MRI of cervical spine Ashley Burk Work Phone: Start: 03-02-2022 Plain x-ray of hand Dr. Ana Laura Burk Work Phone: Bacteria identified in Urine by Culture Dr. Ana Laura Burk Work Phone: H/O: tubal ligation H/O tubal ligation Dr Nanci Bruk Work Phone: History of augmentat ion of breast H/O breast augmentation Dr. Ana Laura Burk Work Phone: History of total hysterectomy S/P FRANKY (total abdominal hysterectomy) Dr. Ana Laura Burk Work Phone: Urine culture Dr. Ana Laura patel Work Phone: Plan of Treatment Date Care Activity Detail Author Start: 09-21-2025 MG Breast - bilatera l Screening [facility] Start: 09-21-2025 Screening mammography SCRN ALFREDO M (CAD)W/RENALDO BILAT [facility] Start: 09-21-2025 Patient encounter procedure Registered Clinical -Outpatient Breast Imaging Work Phone: Start: 04-13-2025 Iv infusion therapy/prophylaxis /dx 1st to 1 hr THER/PROPH/DIAG IV INF INIT [facility] DXA Bone [Mass/Area] Bone density [facility] MG Breast - bilatera l Screening [facility] Work Phone: MG Breast - bilatera l Screening [facility] Payers Date Payer Category Payer Self-pay [id number] 2022 Unknown [id number] 1970 Unknown [id number] Private Health Insurance [facility] [id number] Unknown [facility] [id number] [facility] [id number] Unknown [id number] Unknown [facility] [id number] Unknown [facility] [employer] [id number] Unknown [id number] 462 Unknown [id number] [id number]. 462 Unknown [id number] [id number]. 462 Unknown [id number] 2.16.840.1.746499.3.579.2. 462 Unknown [id number] 2.16.840.1.054359.3.579.2. 462 Unknown [id number] 2.16.840.1.204669.3.579.2. 462 Unknown [id number] 2.16.840.1.306994.3.579.2. 462 Unknown [id number] 2.16.840.1.168411.3.579.2. 462 Unknown [id number] 2.16.840.1.107298.3.579.2. 462 Unknown [id number] 2.16.840.1.520623.3.579.2. 462 Unknown [id number] 2.16.840.1.041178.3.579.2. 462 Unknown [id number] 2.16.840.1.647278.3.579.2. 462 Unknown [id number] [id number]. 462 Social History Date Type Detail [facility] Work Phone: Start: 1970 Sex Assigned At Female [facility] Start: 03-02-2022 End: 02-28-2024 Tobacco smoking status NHIS Unknown if ever smoked [facility] Start: 06-19-2024 [facility] Start: 03-05-2025 Sex Female (finding) [facility] Sex Female [facility] Functional Status Date Assessment Result Facility 09-10-2022 Functional Status Independent [facility] 09-10-2022 Functional Status Standard Safet y ID band on, Call device within reach, Bed in low position, Wheels locked, Upper/Half-Length side-rails up, Phone within reach, personal items within reach [facility] Mental Status Date Assessment Result Facility 04-13-2025 Cognitive function Awake;Alert;A ppropriate;Foll ows Commands [facility] Work Phone: 09-10-2022 Mental Status Orientation Oriented x 4 [facility] 09-10-2022 Mental Status [facility] Clinical Notes 09-10-2022 to 09-10-2025 Note Date & Type Note Facility 09-10-2025 Progress note [facility] 09-10-2025 Progress note Note Date/Time September 10, 2025 2:31pm [facility] [address], [address] [place] [address] OFFICE VISIT Date of Service: 09/10/25 MR#: [id number] Acct: [id number] Name: ALEISHA WITT ep #: [id number] : 1970 Provider: Dr. 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 Is patient in pain?: No Allergies Environmental Allergies: Uncoded Allergy (Verified 09/10/25 14:15) Other Medications ?Medication ?Instructions ?Recorded ?Confirmed ?Type lorazepam 0.5 mg tablet 0.5 mg PO PRN anxiety 09/10/25 History acetaminophen 650 mg 650 mg PO Q12H 05/19/2208/29 History tablet,extended release (Tylenol Arthritis Pain) duloxetine 30 mg capsule,delayed 30 mg PO DAILY 09/10/25 History release (Cymbalta) cholecalciferol (vitamin D3) 10 10 mcg PO DAILY 09/10/25 History mcg (400 unit) capsule multivitamin 1 tab PO DAILY 06/19/2408/29 History ibuprofen 200 mg capsule 200 mg Capsule#3 Samples 09/10/25 Sample levothyroxine 112 mcg tablet 112 mcg PO DAILY #90 tabs 02/28/25 09/10/25 Rx imiquimod 5 % topical cream packet 1 applic topical 3X W 4 weeks #12 ea 04/19/25 09/10/25 Rx Is last menstrual period known: No Patient : No : No PFSH PFSH Medical History (Updated 09/10/25 @ 15:[address] Kandy Disla MD) LINDA II (vulvar intraepithelial neoplasia II) Osteoporosis Nodular basal cell carcinoma Overweight (BMI 25.0-29.9) Menopause Postablative hypothyroidism History of gestational diabetes Surgical History H/O hand surgery H/O tubal ligation H/O breast augmentation H/O unilateral salpingectomy History of left salpingo-oophorectomy S/P FRANKY (total abdominal hysterectomy) Family History Mother Breast cancer Grandmother Cancer Other Diabetes Social History household members: spouse current occupational status: employed current occupation: [employer] Smoking Status: Former smoker alcohol intake: current alcohol intake frequency: a few times a month substance use type: does not use diet: other what type of physical activity do you participate in: none seatbelt use: always do you feel safe at home: Yes additional social history: [facility] [place] History 5 Elective abortions Hx Para Spontaneous abortions Hx # Term Pregnancies Ectopic pregnancies Hx # Pregnancies Multiple births # of living children 2 HPI vulvar colposcopy/biopsy Details: ALEISHA VELÁSQUEZ is a 55 year old who presents for vulvar colposcopy for linda II followup after treatent with topical cream. she has had a resoluation ofsymptos, irritation resolved. some thinning of the skin but no major rritation no bleeding or discomfort. ROS Const Constitutional: Reports as per HPI; Denies fatigue, increased appetite, poor appetite, weight gain or weight loss Cardio Card: Denies chest pain Resp Resp: Denies cough or dyspnea GI GI: Reports as per HPI; Denies abdominal pain, bloating, constipation, nausea or vomiting : Reports as per HPI and other; Denies difficulty voiding, dysuria, hematuria, nipple discharge, pelvic pain, prolapse symptoms, urinary frequency, urinary incontinence, urinary urgency, vaginal discharge, vaginal dryness, vaginal odor or vaginal pruritus Skin Skin/Breast: Denies changing lesions, breast mass, breast pain, breast skin changes or nipple discharge Psych Psych: Denies anxiety or depression Exam Const General: cooperative, healthy appearing, comfortable, no acute distress, well developed and well groomed [facility] Head: normal to inspection and normocephalic Ears: hearing grossly normal bilaterally and external ears normal Nose: external nose normal Face and sinus: normal facial exam Neck Neck: normal visual inspection, full ROM and no lymphadenopathy Thyroid: thyroid normal Resp Effort & Inspection: normal respiratory effort GI Inspection: normal to inspection and non-distended Palpation: soft, no hepatosplenomegaly and no guarding General: bladder normal to palpation External Female Exam: abnormal external appearance (thinning and areas of healing but no lesions), normal appearance of the urethra and no lesions Urethra: normal appearance of the urethra and normal palpation Speculum Exam - Vagina: normal appearance of the vagina and normal vaginal discharge Bimanual Exam- Vagina & Uterus: bladder normal to palpation Bimanual Exam- Adnexa, other: normal adnexae, no masses and non-tender Skin General: no rashes or lesions noted Neuro General: patient alert, moves all extremities and no focal motor deficits Extrem General: normal to inspection and no pedal edema Psych Appearance: grossly normal Mental Status: mental status grossly normal Affect: normal affect Speech and Movement: speech and movement normal Attitude: cooperative Office Procedures Colposcopy Colposcopy Reason for colposcopy: other (linda II) Consent Signed: Yes Time out performed: Yes Time: 13:00 Vulva: Yes Vulva with Biopsy: No biopsy Details: vulvar colposcopy performed covered with dilute acetic acid solution and using acolposcopy the areas inspected and only atrophy seen and healing tissue no lesions. recommend 6 month fu colp Coding Level of Care Code Attention Facilities Operator Diagnoses LINDA II (vulvar intraepithelial neoplasia II) N90.1 CPT Codes Colposcopy - Vulva: Yes (54475) Assessment and Plan Assessment and Plan (1) LINDA II (vulvar intraepithelial neoplasia II): Status: Acute Comment: s/p topical treatment with success. continue vuvlar colposcopy q 6months at thistime. completed therapy by 09/22. Orders: Orders Colposcopy Today L30.9 - Dermatitis, unspecified, N90.1 - Moderate vulvar dysplasia, N90.89 - Other specified noninflammatory disorders of vulva and perineum Plan fu 6 months reviewed precautions 09/10/25 1533 <Electronically signed by Kandy lockwood MD> Date _ Kandy Disla MD Cosigner Signature: Date (if applicable) CC: ~ [facility] Work Phone: 1(137) 349-872209-14-2025 Radiology Diagnostic study note [facility] Imaging Services [address] [place] [id number] Thyroid MR#: [id number] Acct: [id number] Name: ALEISHA WITT Rep #: [id number] : 1970 F 55 From: Bhavik Mallory MD PCP: Dr. Kena Booth MD Status: REG CL I Study:Thyroid Date of Exam: 08/10/25 Exam# [id number] Ordering Dr: Coty Booth MD PROCEDURE: THYROID 08/10/2025 REASON FOR EXAM: ENLARGED THYROID TECHNIQUE: Procedure Code: USTHY Modality: US Procedure: THYROID COMPARISON: None available. FINDINGS: Right thyroid lobe size: 3.1 x 2.1 x 0.6 cm Left thyroid lobe size: 3.7 x 1.0 x 0.7 cm Isthmus: 0.2 cm Background parenchymal echotexture is homogeneous. Nodules: 1. Lobe: Left, Location: Upper, Size: 0.4 x 0.4 x 0.2 cm, Stability: N/A Composition: Cystic or mostly cystic (+0) Echogenicity: Anechoic (+0) Margin: Smooth (+0) Shape: Wider than tall (+0) Echogenic Foci: None (+0) TI-RADS: 1 2. Lobe: Left, Location: Mid to lower, Size: 1.4 x 1.1 x 0.5 cm, Stability: N/A Composition: Solid or almost completely solid (+2) Echogenicity: Hypoechoic (+2) Margin: Smooth (+0) Shape: Wider than tall (+0) Echogenic Foci: None (+0) TI-RADS: 4 3. Lobe: Right, Location: Isthmus, Size: 0.8 x 0.6 x 0.4 cm, Stability: N/A Composition: Solid or almost completely solid (+2) Echogenicity: Hypoechoic (+2) Margin: Smooth (+0) Shape: Wider than tall (+0) Echogenic Foci: None (+0) TI-RADS: 4 US/Thyroid IMPRESSION: Left thyroid 1.4 cm nodule and right isthmus 0.8 cm nodule, TI-RADS 4, moderately suspicious., RECOMMENDATION: Based on most suspicious nodule. Nodule size = largest diameter Only evaluate nodule if =>5 mm. Growth > 20% in 2 dimensions = worsening. Follow up to 4 nodules. Recommend biopsy for no more than 2 nodules. Reading [facility] CC: Dr. Kena Booth MD ~ Wireline Operator: Signed [facility]07-25-2025 Evaluation note* Diagnosis Onset Date Resolution Status Admit Date LINDA II (vulvar intraepitheli al neoplasia II) acute June 22, 2025 2:39pm Encounter for routine gynecological examination noneactive May 302024 2:39pm [facility] Work Phone: 1(604) 834-429807-25-2025 Evaluation note* Diagnosis Onset Date Resolution Status Admit Date LINDA II (vulvar intraepitheli al neoplasia II) acute June 22, 2025 2:39pm Encounter for routine gynecological examination noneactive May 302024 2:39pm LINDA II (vulvar intraepitheli al neoplasia II) acute September 10 1:47pm [facility] Work Phone: 1(274) 424-604304-01-2025 Evaluation note* Diagnosis Onset Date Resolution Status Admit Date Osteoporosis chronic February 27, 2 025 3:50pm Postablative hypothyroidism chronic February 27, 2025 3:50pm Vulvar lesion acute March 16, 2025 1:52pm LINDA II (vulvar intraepitheli al neoplasia II) acute April 13, 2025 2 :44pm LINDA II (vulvar intraepitheli al neoplasia II) acute June 22, 2025 2:39pm Encounter for routine gynecological examination noneactive May 302024 2:39pm [facility] Work Phone: 1(718) 911-251403-17-2025 Evaluation note* Diagnosis Onset Date Resolution Status Admit Date Vulvar lesion acute February 12, 2025 3:05pm Osteoporosis chronic February 27, 2 025 3:50pm Postablative hypothyroidism chronic February 27, 2025 3:50pm [facility] Work Phone: 1(655) 633-101503-17-2025 Evaluation note* Diagnosis Onset Date Resolution Status Admit Date Vulvar lesion acute February 12, 2025 3:05pm Osteoporosis chronic February 27, 2 025 3:50pm Postablative hypothyroidism chronic February 27, 2025 3:50pm Vulvar lesion acute March 16, 2025 1:52pm [facility] Work Phone: 1(394) 306-427603-17-2025 Evaluation note* Diagnosis Onset Date Resolution Status Admit Date Vulvar lesion acute February 12, 2025 3:05pm Osteoporosis chronic February 27, 2 025 3:50pm Postablative hypothyroidism chronic February 27, 2025 3:50pm Vulvar lesion acute March 16, 2025 1:52pm LINDA II (vulvar intraepitheli al neoplasia II) acute April 13, 2025 2 :44pm [facility] Work Phone: 1(765) 614-870510-14-2022 Note. MICRO - Microbiology PROCEDURE: Urine Culture [*1] SOURCE: Urine, Clean Catch BODY SITE: COLLECTED DATE/TIME: 09/10/2022 14:56 EDT RECEIVED DATE/TIME: 09/10/2022 21:28 EDT START DATE/TIME: 09/10/2022 21:29 EDT FREE TEXT SOURCE: FINAL REPORTS Final Report [] Verified Date/Time/Personnel: 09/11/2022 13:05 EDT >100,000 cfu/ml Group B Beta Hemolytic Strep (Strep agalactiae) Sensitivity testing is not recommended for one of the following reasons: 1. Established susceptibility patterns are available or 2. Interpretative criteria are not available. Performing Locations *1: This test was performed at: [facility], [address] [place] [address], [id number] , [facility] ([place])09-10-2022 Hospital Discharge instructions Patient Education 09/10/2022 15:22:48 Kidney Stone w/ Colic Kidney Stone with Pain The sharp cramping pain on either side of your lower back and nausea/vomiting that you have are because of a small stone that has formed in the kidney. It is now passing down a narrow tube (ureter) on its way to your bladder. Once the stone reaches your bladder, the pain will often stop. But it maycome back as the stone continues to pass out of the bladder and through the urethra. The stone may pass in your urine stream in one piece. The size may be 1/16 inch to 1/4 inch (1 mm to 6 mm). Or, the stone may break up into tamika fragments that you may not even notice. Once you have had a kidney stone, you are at risk of getting another one in the future. There are 4types of kidney stones. Eighty percent are calcium stones mostly calcium oxalate but also some withcalcium phosphate. The other 3 types include uric acid stones, struvite stones (from a preceding infection), and rarely, cystine stones. Most stones will pass on their own, but may take from a few hours to a few days. Sometimes the stone is too large to pass by itself. In that case, the healthcare provider will need to use other ways to remove the stone. These techniques include: Lithotripsy. This uses ultrasound waves to break up the stone. Ureteroscopy. This pushes a basket-like instrument through the urethra and bladder and into the ureter to pull out the stone. Various types of direct surgery through the skin Home care The following are general care guidelines: Drink plenty of fluids. This means at least 12, 8-ounce glasses of fluid mostly water a day. Each time you urinate, do so in a jar. Pour the urine from the jar through the strainer and into the toilet. Continue doing this until 24 hours after your pain stops. By then, if there was a kidney stone, it should pass from your bladder. Some stones dissolve into sand-like particles and pass rightthrough the strainer. In that case, you won t ever see a stone. Save any stone that you find in the strainer and bring it to your healthcare provider to look at. It may be possible to stop certain types of stones from forming. For this reason, it is important to know what kind of stone you have. Try to stay as active as possible. This will help the stone pass. Don't stay in bed unless your pain keeps you from getting up. You may notice a red, pink, or brown color to your urine. This is normal while passing a kidney stone. If you develop pain, you may take ibuprofen or naproxen for pain, unless another medicine was prescribed. If you have chronic liver or kidney disease, talk with your healthcare provider before takingthese medicines. Also talk with your provider if you've had a stomach ulcer or GI bleeding. Preventing stones Each year for the next 5 to 7 years, you are at risk that a new stone will form. Your risk is a 50%chance over this time period. The risk is higher if you have a family history of kidney stones or have certain chronic illnesses like hypertension, obesity, or diabetes. But you can make changes to your lifestyle and diet that can lower your risk for another stone. Most kidney stones are made of calcium. The following is advice for preventing another calcium stone. If you don t know the type of stone you have, follow this advice until the cause of your stone isfound. Things that help: The most important thing you can do is to drink plenty of fluids each day. See home care above. Eat foods that contain phytates. These include wheat, rice, rye, barley, and beans. Phytates are substances that may lower your risk for any type of stone to form. Eat more fruits and vegetables. Choose those that are high in potassium. Eat foods high in natural citrate like fruit and low-sugar fruit juices. Having too little calcium in your diet can put you at risk for calcium kidney stones. Eat a normal amount of calcium in your diet and talk with your healthcare provider if you are taking calcium supplements. Cutting back on your calcium intake may raise your risk. New research shows that eating calcium-rich and oxalate-rich foods together lowers your risk for stones by binding the minerals in thestomach and intestines before they can reach the kidneys. Limit salt intake to 2 grams (1 teaspoon) per day. Use limited amounts when cooking, and don t add salt at the table. Processed and canned foods are usually high in salt. Spinach, rhubarb, peanuts, cashews, almonds, grapefruit, and grapefruit juice are all high oxalate foods. You should limit how much of these you eat. Or eat them with calcium-rich foods. These include dairy products, dark leafy greens, soy products, and calcium-enriched foods. Reducing the amount of animal meat and high protein foods in your diet may lower your risk for uricacid stones. Avoid excess sugar (sucrose) and fructose (sweetener in many soft drinks) in your diet. If you take vitamin C as a supplement, don't take more than 1,000 mg a day. A dietitian or your healthcare provider can give you information about changes in your diet that will help prevent more kidney stones from forming. Follow-up care Follow up with your healthcare provider, or as advised, if the pain lasts more than 48 hours. Talk with your provider about urine and blood tests to find out the cause of your stone. If you had an X-ray, CT scan, or other diagnostic test, you will be told of any new findings that may affect your care. Call 911 Call 911 if you have any of these: Weakness, dizziness, or fainting When to seek medical advice Call your healthcare provider right away if any of these occur: Pain that is not controlled by the medicine given Repeated vomiting or unable to keep down fluids Fever of 100.4 F (38 C) or higher, or as directed by your healthcare provider Passage of solid red or brown urine (can't see through it) or urine with lots of blood clots Foul-smelling or cloudy urine Unable to pass urine for 8 hours and increasing bladder pressure [id number] [employer]. [address] [place] [address], [place] [address]. All rights reserved. This information is not intended as a substitute for professional medical care. Always follow yourhealthcare professional's instructions. Follow Up Care 09/10/2022 14:03:26 With:ANEESH GAO Address: [address] [place] [id number] [facility] (1) When:2-4 days Comments:Schedule appointment for follow-up if your symptoms persist.Push fluids, bland diet as tolerated.Strain your urine.Use Tylenol, Advil or Aleve for pain as needed.Use Gakona as prescribed for severe pain, Zofran for nausea and vomiting and Flomax to help with urine output.Return to the ED if symptoms worsen. [facility] 10-13-2022 Note Discharge Instructions Thank you for allowing [facility] to assist you with your healthcare needs. The following is importantdischarge information regarding your hospital visit. Diagnosis from Today's Visit Kidney stone Flank pain Renal colic on right side What to Do Next Instructions from Your Care Team No qualifying data available. Post Acute Orders No qualifying data available. You Need to Schedule the Following Appointments Follow Up with ANEESH GAO When Within 2-4 days Why: Schedule appointment for follow-up if your symptoms persist. Push fluids, bland diet as tolerated. Strain your urine. Use Tylenol, Advil or Aleve for pain as needed. Use Gakona as prescribed for severe pain, Zofran for nausea and vomiting and Flomax to help with urine output. Return to the ED if symptoms worsen. Where: [address] [place] [id number] [facility] (1) Allergies NKA Medications Please ask your primary doctor or pharmacist before taking any other medication not listed, including over the counter drugs, herbal medications, vitamins and or supplements as they may interact withyour home medications. What How Much When Why Instructions Last Dose New acetaminophen-hydrocodone (Gakona 325- 5 mg oral tablet) 1 tab(s) by mouth Every 6 hours as needed for As needed for severe pain Kidney stone Renal colic on right side Duration: 3 Days Printed Prescription New ondansetron (Zofran 4 mg oral tablet) 1 tab(s) by mouth Every 6 hours as needed for As needed for nausea and vomiting Kidney stone Duration: 3 Days Printed Prescription New tamsulosin (Flomax 0.4 mg oral capsule) 1 cap by mouth Once a day Kidney stone Duration: 7 Days Printed Prescription Please take this list to your next doctor s visit. Bring all medications you take, including over the counter medications, herbals and other supplements with you to your doctor s visit. Patients and families are reminded to discard old lists and to update any records with all medication providers or retail pharmacies. Education Materials Kidney Stone with Pain The sharp cramping pain on either side of your lower back and nausea/vomiting that you have are because of a small stone that has formed in the kidney. It is now passing down a narrow tube (ureter) on its way to your bladder. Once the stone reaches your bladder, the pain will often stop. But it maycome back as the stone continues to pass out of the bladder and through the urethra. The stone may pass in your urine stream in one piece. The size may be 1/16 inch to 1/4 inch (1 mm to 6 mm). Or, the stone may break up into tamika fragments that you may not even notice. Once you have had a kidney stone, you are at risk of getting another one in the future. There are 4types of kidney stones. Eighty percent are calcium stones mostly calcium oxalate but also some withcalcium phosphate. The other 3 types include uric acid stones, struvite stones (from a preceding infection), and rarely, cystine stones. Most stones will pass on their own, but may take from a few hours to a few days. Sometimes the stone is too large to pass by itself. In that case, the healthcare provider will need to use other ways to remove the stone. These techniques include: Lithotripsy. This uses ultrasound waves to break up the stone. Ureteroscopy. This pushes a basket-like instrument through the urethra and bladder and into the ureter to pull out the stone. Various types of direct surgery through the skin Home care The following are general care guidelines: Drink plenty of fluids. This means at least 12, 8-ounce glasses of fluid mostly water a day. Each time you urinate, do so in a jar. Pour the urine from the jar through the strainer and into the toilet. Continue doing this until 24 hours after your pain stops. By then, if there was a kidney stone, it should pass from your bladder. Some stones dissolve into sand-like particles and pass rightthrough the strainer. In that case, you won t ever see a stone. Save any stone that you find in the strainer and bring it to your healthcare provider to look at. It may be possible to stop certain types of stones from forming. For this reason, it is important to know what kind of stone you have. Try to stay as active as possible. This will help the stone pass. Don't stay in bed unless your pain keeps you from getting up. You may notice a red, pink, or brown color to your urine. This is normal while passing a kidney stone. If you develop pain, you may take ibuprofen or naproxen for pain, unless another medicine was prescribed. If you have chronic liver or kidney disease, talk with your healthcare provider before takingthese medicines. Also talk with your provider if you've had a stomach ulcer or GI bleeding. Preventing stones Each year for the next 5 to 7 years, you are at risk that a new stone will form. Your risk is a 50%chance over this time period. The risk is higher if you have a family history of kidney stones or have certain chronic illnesses like hypertension, obesity, or diabetes. But you can make changes to your lifestyle and diet that can lower your risk for another stone. Most kidney stones are made of calcium. The following is advice for preventing another calcium stone. If you don t know the type of stone you have, follow this advice until the cause of your stone isfound. Things that help: The most important thing you can do is to drink plenty of fluids each day. See home care above. Eat foods that contain phytates. These include wheat, rice, rye, barley, and beans. Phytates are substances that may lower your risk for any type of stone to form. Eat more fruits and vegetables. Choose those that are high in potassium. Eat foods high in natural citrate like fruit and low-sugar fruit juices. Having too little calcium in your diet can put you at risk for calcium kidney stones. Eat a normal amount of calcium in your diet and talk with your healthcare provider if you are taking calcium supplements. Cutting back on your calcium intake may raise your risk. New research shows that eating calcium-rich and oxalate-rich foods together lowers your risk for stones by binding the minerals in thestomach and intestines before they can reach the kidneys. Limit salt intake to 2 grams (1 teaspoon) per day. Use limited amounts when cooking, and don t add salt at the table. Processed and canned foods are usually high in salt. Spinach, rhubarb, peanuts, cashews, almonds, grapefruit, and grapefruit juice are all high oxalate foods. You should limit how much of these you eat. Or eat them with calcium-rich foods. These include dairy products, dark leafy greens, soy products, and calcium-enriched foods. Reducing the amount of animal meat and high protein foods in your diet may lower your risk for uricacid stones. Avoid excess sugar (sucrose) and fructose (sweetener in many soft drinks) in your diet. If you take vitamin C as a supplement, don't take more than 1,000 mg a day. A dietitian or your healthcare provider can give you information about changes in your diet that will help prevent more kidney stones from forming. Follow-up care Follow up with your healthcare provider, or as advised, if the pain lasts more than 48 hours. Talk with your provider about urine and blood tests to find out the cause of your stone. If you had an X-ray, CT scan, or other diagnostic test, you will be told of any new findings that may affect your care. Call 911 Call 911 if you have any of these: Weakness, dizziness, or fainting When to seek medical advice Call your healthcare provider right away if any of these occur: Pain that is not controlled by the medicine given Repeated vomiting or unable to keep down fluids Fever of 100.4 F (38 C) or higher, or as directed by your healthcare provider Passage of solid red or brown urine (can't see through it) or urine with lots of blood clots Foul-smelling or cloudy urine Unable to pass urine for 8 hours and increasing bladder pressure [id number] [employer]. [address] [place] [address]. All rights reserved. This information is not intended as a substitute for professional medical care. Always follow yourhealthcare professional's instructions. Additional Information VACCINATE! IT SAVES LIVES! Members of the community who have not yet received the COVID-19 vaccine and would like to receive it can visit one of [facility] vaccine clinics. There are many vaccine clinic locations within the [facility]. For locations and available times, please visit [email or web address]. It is important to note that some COVID mobile vaccine clinics are held outdoors and may be canceled in rainy orstormy conditions. To learn more about pediatric vaccinations (ages 5-11), we invite you to visit the [facility] webpage. [email or web address] learn more about the COVID-19 vaccine, we invite you to visit the [facility] website for a list of frequently asked questions. [email or web address] [facility] [facility] Patient Portal Access Instructions: Stay connected with your healthcare team and access your personal medical information anytime with the [facility] Patient Portal. If you would like a full copy of your medical records please contact the [facility] Medical Records Department Wednesday through Wednesday between 8a.m. and 4:30p.m. Please follow the directions below to access the portal: 1.Access the email account you provided upon registration to the [facility].2.Look for an invitation email from [facility].3.Open the email and access the invitation link: Accept Invitation to [facility].Fill in the required booth to create your account. Sign into www.[employer] with your username and password that you created in the above steps to stay up to date. You can then view a summary of results, a summary of your visits, and the ability to download your summaries to your computer or send the information securely to a physician. Remember that your healthcare information is confidential, so carefully consider who you will allow to register on the [facility] Patient Portal for access to your information. You can also access the [facility] Patient Portal on the [employer] daniel. Simply click on Health Records under [employer] and then click on the [employer] logo. HOW TO SAFELY DISPOSE OF PRESCRIPTION MEDICATIONS Please use one of the following methods to safely dispose of your unused medications. 1.Use a drug disposal kit: the drug disposal pouch allows you to safely discard your old and unuseddrugs. Ask your nurse to give you one when you are discharged.2.Visit a local take-back location: Many local pharmacies and police departments have programs that collect old and unwanted prescriptiondrugs. Call your local pharmacy or go to http://Whittl.Mulu/1H8Og4f to find one close to you.3.Make use of household items: Use cat litter or old coffee grounds to dispose medications if other options arenot available. Mix your drugs with these household products, seal them in an airtight container andthrow it into the garbage. Call [facility]: [phone] to be sure your drugs can be disposed of in this way. Some medicines may require a different approach.4.Never flush your medications down the toilet. IF YOU HAVE BEEN PRESCRIBED AN OPIOIDS FOR PAIN If you have been prescribed an opioid (such as hydrocodone, oxycodone or morphine), it is critical to understand the possible side effects and risks of opioid pain medications. Even when taken as directed, opioids can have several side effects including: Tolerance, meaning you might need to take more of a medication for the same pain relief. Nausea, vomiting and/or constipation. Sleepiness, dizziness, dry mouth, confusion, depression or itching. Physical dependence, meaning you have withdrawal symptoms when a medication is stopped ? this can develop within a few days. KNOW YOUR RESPONSIBILITIES It is important to know exactly how much and how often to take the opioid pain medications you are prescribed. Never take opioids in higher amounts or more often than prescribed. Do not combine opioids with alcohol or other drugs that cause drowsiness, such as benzodiazepines, also known as benzos,including diazepam and alprazolam, muscle relaxants or sleep aids. Never sell or share prescriptionopioids. This is illegal. Store opioids in a secure place and out of reach of others (including children, family, friends and visitors). The last page(s) of this document has been signed and retained as a CHART COPY Signatures Patient Education Materials Kidney Stone w/ Colic Medication Leaflets My discharge plan and instructions have been reviewed and explained to me and IROXANNE MICHELLE M understand my current condition and have read and understand these discharge instructions. I have received a written copy of the plan/instructions. If I have questions, I am aware that I should contact my doctor. 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 Multiplanar reformatted images are provided for review. Automated exposure control, iterative reconstruction, and/or weight based adjustment of the mA/kV was utilized to reduce the radiation dose to as low as reasonably achievable. COMPARISON: None. HISTORY: ORDERING SYSTEM PROVIDED HISTORY: Reason for Exam: RIGHT flank pain FINDINGS: The heart is normal in size. No pericardial thickening. Small amount of pericardial fluid. Bibasilar atelectasis. The abdominal aorta is normal in caliber with minimal atherosclerotic disease. No pathologically enlarged lymphadenopathy. The visualized liver is normal in contour and attenuation. The gallbladder is unremarkable. The spleen, pancreas, and adrenals are unremarkable. Status post hysterectomy. The right kidney is slightly larger than left. No hydronephrosis or renal calculi. There is a mildly obstructive 3 mm stone in the distal right ureter at the ureterovesicular junction. The right ureter is mildly dilated up to 1 cm. The left ureter is unremarkable. The bladder is not well distended and limits evaluation. No intraperitoneal free air or fluid. The large and small bowel are normal in caliber without signs of obstruction. There is fatty infiltration of the terminal ileum, likely due to remote inflammation. The appendix appears unremarkable. Small hiatal hernia. The stomach and duodenum are unremarkable. Small fat containing umbilical hernia. Mild degenerative changes of the spine. Osseous structures are intact. Likely bone island in the posterior left and right iliac bones. No soft tissue abnormality. Right breast implant noted. IMPRESSION: 1. Mildly obstructive distal right ureteral stone at the ureterovesicular junction. 2. Fatty infiltration of the terminal ileum, likely from remote inflammation. Other incidental findings as above. I have personally reviewed the images of this examination and agree with the resident's findings and interpretation. Interpreted by: Adin Babcock MD Preliminary Report By: Js Johnson Electronically signed By Adin Babcock MD Dictated Date: 09/10/2022 2:58:45 PM Prelim Date: 09/10/2022 3:16:33 PM Sign Date: 09/10/2022 3:18:34 PM Ordering Provider: [facility]10-13-2022 Note ORIGINAL EXAMINATION: CT OF THE ABDOMEN AND PELVIS WITHOUT CONTRAST 09/10/2022 2:55 pm TECHNIQUE: CT of the abdomen and pelvis was performed without the administration of intravenous contrast. Multiplanar reformatted images are provided for review. Automated exposure control, iterative reconstruction, and/or weight based adjustment of the mA/kV was utilized to reduce the radiation dose to as low as reasonably achievable. COMPARISON: None. HISTORY: ORDERING SYSTEM PROVIDED HISTORY: Reason for Exam: RIGHT flank pain FINDINGS: The heart is normal in size. No pericardial thickening. Small amount of pericardial fluid. Bibasilar atelectasis. The abdominal aorta is normal in caliber with minimal atherosclerotic disease. No pathologically enlarged lymphadenopathy. The visualized liver is normal in contour and attenuation. The gallbladder is unremarkable. The spleen, pancreas, and adrenals are unremarkable. Status post hysterectomy. The right kidney is slightly larger than left. No hydronephrosis or renal calculi. There is a mildly obstructive 3 mm stone in the distal right ureter at the ureterovesicular junction. The right ureter is mildly dilated up to 1 cm. The left ureter is unremarkable. The bladder is not well distended and limits evaluation. No intraperitoneal free air or fluid. The large and small bowel are normal in caliber without signs of obstruction. There is fatty infiltration of the terminal ileum, likely due to remote inflammation. The appendix appears unremarkable. Small hiatal hernia. The stomach and duodenum are unremarkable. Small fat containing umbilical hernia. Mild degenerative changes of the spine. Osseous structures are intact. Likely bone island in the posterior left and right iliac bones. No soft tissue abnormality. Right breast implant noted. IMPRESSION: 1. Mildly obstructive distal right ureteral stone at the ureterovesicular junction. 2. Fatty infiltration of the terminal ileum, likely from remote inflammation. Other incidental findings as above. I have personally reviewed the images of this examination and agree with the resident's findings and interpretation. Interpreted by: Adin Babcock MD Preliminary Report By: Js Johnson Electronically signed By Adin Babcock MD Dictated Date: 09/10/2022 2:58:45 PM Prelim Date: 09/10/2022 3:16:33 PM Sign Date: 09/10/2022 3:18:34 PM [facility]ing [facility] + Plan note Diagnostic Tests Pending * Urine Culture 09/10/22 [facility] Evaluation noteNo assessment information available [facility] Work Phone: Evaluation note* Diagnosis Onset Date Resolution Status Postablative hypothyroidism chronic [facility] Work Phone: Evaluation note* Diagnosis Onset Date Resolution Status Postablative hypothyroidism chronic Atrophic vaginitis acute Lichen sclerosus acute Encounter for routine gynecological examination noneactive [facility] Work Phone: Evaluation note* Diagnosis Onset Date Resolution Status Atrophic vaginitis acute Lichen sclerosus acute Encounter for routine gynecological examination noneactive Lichen sclerosus acute [facility] Work Phone: Evaluation note* Diagnosis Onset Date Resolution Status Postablative hypothyroidism chronic Foraminal stenosis of cervical region acute [facility] Work Phone: Evaluation note* Diagnosis Onset Date Resolution Status Postablative hypothyroidism chronic Foraminal stenosis of cervical region acute Atrophic vaginitis acute Lichen sclerosus acute Encounter for routine gynecological examination noneactive [facility] Work Phone: Evaluation note* Diagnosis Onset Date Resolution Status Menopause chronic Overweight (BMI 25.0-29.9) c hronic Postablative hypothyroidism chronic [facility] Work Phone: Hospital course Narrative No data available for this section [facility] Reason for referral (narrative)No reason for referral [facility]: Chief Complaint and Reason for Visit Chief Complaint 1 Y FU- THYROID Reason for Visit Postablative hypothy roidism Chief Complaint 1 Y FU- THYROID Radiculopathy, cervical region Paresthesia of skin, spondylosis Paresthesia of skin, spondylosis 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 Reason for Visit Postablative hypothy roidism Foraminal stenosis of cervical region Atrophic vaginitis Lichen sclerosus Encounter for routine gynecological examination Chief Complaint 1 Y FU E-ORDER Reason for Visit Menopause Overweight (BMI 25.0-29.9) Postablative hypothyroidism Chief Complaint 1 Y FU E-ORDER POSTPROCEDURAL HYPOTHYROIDISM Reason for Visit Menopause Overweight (BMI 25.0-29.9) Postablative hypothyroidism Chief Complaint Admit Date CONCERN FOR Pneumonia December 26, 2024 1:41pm cough December 26, 2024 2 :00pm BIOPSY 6M F/U February 12, 2025 3:0 5pm 1 Y FU February 27, 2025 3:50 pm EORDERS February 28, 2025 3:18 pm Reason for Visit Admit Date Vulvar lesion February 12, 2025 3:0 5pm Osteoporosis February 27, 2025 3:50 pm Postablative hypothyroidism February 27, 2 025 3:50pm Chief Complaint Admit Date CONCERN FOR Pneumonia December 26, 2024 1:41pm cough December 26, 2024 2 :00pm BIOPSY 6M F/U February 12, 2025 3:0 5pm 1 Y FU February 27, 2025 3:50 pm EORDERS February 28, 2025 3:18 pm VULVAR BIOPSY March 16, 2025 1:5 2pm RECLAST April 13, 2025 10:51 am 3 wk biopsy f/u April 13, 2025 2:44p m Reason for Visit Admit Date Vulvar lesion February 12, 2025 3:0 5pm Osteoporosis February 27, 2025 3:50 pm Postablative hypothyroidism February 27, 2 025 3:50pm Vulvar lesion March 16, 2025 1:5 2pm Reason for Visit Admit Date Vulvar lesion February 12, 2025 3:0 5pm Osteoporosis February 27, 2025 3:50 pm Postablative hypothyroidism February 27, 2 025 3:50pm Vulvar lesion March 16, 2025 1:5 2pm LINDA II (vulvar intraepithelial neoplasia II) April 13, 2025 2:44pm Chief Complaint Admit Date 1 Y FU February 27, 2025 3:50 pm EORDERS February 28, 2025 3:18 pm VULVAR BIOPSY March 16, 2025 1:5 2pm RECLAST April 13, 2025 10:51 am 3 wk biopsy f/u April 13, 2025 2:44p m 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, 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 2:39 pm Reason for Visit Admit Date Osteoporosis February 27, 2025 3:50 pm Postablative hypothyroidism February 27 2 025 3:50pm Vulvar lesion March 16, 2025 1:5 2pm LINDA II (vulvar intraepithelial neoplasia II) April 13, 2025 2:44pm LINDA II (vulvar intraepithelial neoplasia II) June 22, 2025 2:39pm Encounter for routine gynecological exam ination June 22, 2025 2:39pm Chief Complaint 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 Date 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, 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 2:39 pm HYPOTHYROIDISM August 10, 2025 1:26pm Reason for Visit Admit Date LINDA II (vulvar intraepithelial neoplasia II) June 22, 2025 2:39pm Encounter for routine gynecological exam ination June 22, 2025 2:39pm Chief Complaint Admit Date 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, 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 2:39 pm HYPOTHYROIDISM August 10, 2025 1:26pm vulvar colposcopy/biopsy September 10 2 025 1:47pm screening mammogram September 21, 2025 2 :50pm Reason for Visit Admit Date LINDA II (vulvar intraepithelial neoplasia II) June 22, 2025 2:39pm Encounter for routine gynecological exam ination June 22, 2025 2:39pm LINDA II (vulvar intraepithelial neoplasia II) September 10, 2025 1:47pm Advance Directives No Advanced Directives Records Found Advance Directive Response Recorded Date/ Time Advance Directives No April 03, 2015 11:55am Living Will No November 15 4:12pm Power of Kiln Remover No November 15, 2020 4:12pm Advance Directive Response Recorded Date/ Time Living Will No November 15 4:12pm Do you have a Healthcare Power of Kiln Remover? No November 15, 2020 4:12pm Advance Directives No June 19 4:58pm Advance Directive Response Recorded Date/ Time Advance Directives No June 19 4:58pm Family History No Family History Records Found Relationship Condition Age at Onset Recorded Date/T robert Not Specified Diabetes mellitus Unknown mother Malignant neoplasm of breast Unknown grandmother Malignant neoplasm Unknown Summary Purpose Additional Source Comments Goals (unrecognized section and content) Goals may be documented in a n alternate sectionGoals may be documented in an alternate sectionGoals may be documented in an alternate sectionGoals may be documented in an alternate section No data available for this sectionGoals may be documented in an alternate sectionGoals may be documented in an alternate sectionGoals may be documented in an alternate sectionGoals may be documented in an alternate sectionGoals may be documented in an alternate sectionGoals may be documented in an alternate sectionGoals may be documented in an alternate sectionGoals may be documented in an alternate sectionGoals may be documented in an alternate sectionGoals may be documented in an alternate sectionGoals may be documented in an alternate section Care Team (unrecognized sect ion and content) Care Team Personnel Name: ANA LAURA BURK MD Member Role: Primary Care Physician Address: Address: [address] [place] [address] INFORMATION SOURCE (unrecogn ized section and content) DATE CREATED AUTHOR 09/21/2022 [facility] [place] [facility] DATE CREATED AUTHOR AUTHOR'S ORGANIZ ATION 10/04/2025 [facility] Care Teams (unrecognized sec tion and content) Team Status: Active Member Role Status Dates Dr. Ana Laura Burk MD Family Provider Active Dr. Ana Laura Burk MD Primary Care Provider Active Team Status: Inactive Member Role Status Dates Dr. Ana Laura Burk MD Primary Care Provider, Arturo landa Provider Active Dr. Hardy Hernandez MD Attending Provider Active Team Status: Inactive Member Role Status Dates Dr. Ana Laura Burk MD Primary Care Provider, Referrin g Provider Active Dr. Rocael Yang DO Attending Provider Active Team Status: Inactive Member Role Status Dates Dr. Ana Laura Burk MD Primary Care Provider Active Dr. Adi Morales MD Attending Provider Active Team Status: Inactive Member Role Status Dates Dr. Ana Laura Burk MD Primary Care Provider Active Dr. Hardy Hernandez MD Attending Provider, Referring Provi minnie Active Team Status: Inactive Member Role Status Dates Dr. Ana Laura Burk MD Primary Care Provider, Referrin g Provider Active Dr. Kandy Disla MD Attending Provider Active Team Status: Inactive Member Role Status Dates Dr. Ana Laura Burk MD Primary Care Provider Active Dr. Kandy Disla MD Attending Provider, Referr ing Provider Active Team Status: Active Member Role Status Dates Dr. Ana aLura Burk MD Primary Care Provider Active Team Status: Inactive Member Role Status Dates Dr. Ana Laura Burk MD Primary Care Provider Active Start: December 26, 2024 End: December 26, 2024 Dr. Ana Laura Burk MD Referring Provider Active Start: December 26, 2024 End: December 26, 2024 ROCHELLE Bucio Attending Provider Active Start: December 26, 2024 End: December 26, 2024 Team Status: Inactive Member Role Status Dates Dr. Ana Laura Burk MD Primary Care Provider Active Start: December 26, 2024 End: December 26, 2024 ROCHELLE Bucio Attending Provider Active Start: December 26, 2024 End: December 26, 2024 ROCHELLE Bucio Referring Provider Active Start: December 26, 2024 End: December 26, 2024 Team Status: Inactive Member Role Status Dates Dr. Ana Laura Burk MD Primary Care Provider Active Start: February 12, 2025 End: February 12, 2025 Dr. Ana Laura Burk MD Referring Provider Active Start: February 12, 2025 End: February 12, 2025 Dr. Kandy Disla MD Attending Provider Active Start: February 12, 2025 End: February 12, 2025 Team Status: Inactive Member Role Status Dates Dr. Ana Laura Burk MD Primary Care Provider Active Start: February 27, 2025 End: February 27, 2025 Dr. Ana Laura Burk MD Referring Provider Active Start: February 27, 2025 End: February 27, 2025 Dr. Hardy Hernandez MD Attending Provider Active Sta rt: February 27, 2025 End: February 27, 2025 Team Status: Inactive Member Role Status Dates Dr. Ana Laura Burk MD Primary Care Provider Active Start: February 28, 2025 End: February 28, 2025 Dr. Hardy Hernandez MD Attending Provider Active Sta rt: February 28, 2025 End: February 28, 2025 Dr. Hardy Hernandez MD Referring Provider Active Sta rt: February 28, 2025 End: February 28, 2025 Team Status: Inactive Member Role Status Dates Dr. Ana Laura Burk MD Primary Care Provider Active Start: March 16, 2025 End: March 16, 2025 Dr. Ana Laura Burk MD Referring Provider Active Start: March 16, 2025 End: March 16, 2025 Dr. Kandy Disla MD Attending Provider Active Start: March 16, 2025 End: March 16, 2025 Team Status: Inactive Member Role Status Dates Dr. Ana Laura Burk MD Primary Care Provider Active Start: March 16, 2025 End: March 16, 2025 Dr. Kandy Disla MD Attending Provider Active Start: March 16, 2025 End: March 16, 2025 Dr. Kandy Disla MD Referring Provider Active Start: March 16, 2025 End: March 16, 2025 Team Status: Active Member Role Status Dates Dr. Ana Laura Burk MD Primary Care Provider Active Start: April 13, 2025 Dr. Hardy Hernandez MD Attending Provider Active Sta rt: April 13, 2025 Dr. Hardy Hernandez MD Referring Provider Active Sta rt: April 13, 2025 Team Status: Inactive Member Role Status Dates Dr. Ana Laura Burk MD Primary Care Provider Active Start: April 13, 2025 End: April 13, 2025 Dr. Ana Laura Burk MD Referring Provider Active Start: April 13, 2025 End: April 13, 2025 Dr. Kandy Disla MD Attending Provider Active Start: April 13, 2025 End: April 13, 2025 Team Status: Inactive Member Role Status Dates Dr. Ana Laura Burk MD Primary Care Provider Active Start: April 13, 2025 End: April 13, 2025 Dr. Hardy Hernandez MD Attending Provider Active Sta rt: April 13, 2025 End: April 13, 2025 Dr. Hardy Hernandez MD Referring Provider Active Sta rt: April 13, 2025 End: April 13, 2025 Team Status: Active Member Role/Relationship Status Dates Dr. Ana Laura Burk MD Primary Care Provider Active Team Status: Inactive Member Role/Relationship Status Dates Dr. Ana Laura Burk MD Primary Care Provider Active Start: February 27, 2025 End: February 27, 2025 Dr. Ana Laura Burk MD Referring Provider Active Start: February 27, 2025 End: February 27, 2025 Dr. Hardy Hernandez MD Attending Provider Active Sta rt: February 27, 2025 End: February 27, 2025 Team Status: Inactive Member Role/Relationship Status Dates Dr. Ana Laura Burk MD Primary Care Provider Active Start: February 28, 2025 End: February 28, 2025 Dr. Hardy Hernandez MD Attending Provider Active Sta rt: February 28, 2025 End: February 28, 2025 Dr. Hardy Hernandez MD Referring Provider Active Sta rt: February 28, 2025 End: February 28, 2025 Team Status: Inactive Member Role/Relationship Status Dates Dr. Ana Laura Burk MD Primary Care Provider Active Start: March 16, 2025 End: March 16, 2025 Dr. Ana Laura Burk MD Referring Provider Active Start: March 16, 2025 End: March 16, 2025 Dr. Kandy Disla MD Attending Provider Active Start: March 16, 2025 End: March 16, 2025 Team Status: Inactive Member Role/Relationship Status Dates Dr. Ana Laura Burk MD Primary Care Provider Active Start: March 16, 2025 End: March 16, 2025 Dr. Kandy Disla MD Attending Provider Active Start: March 16, 2025 End: March 16, 2025 Dr. Kandy Disla MD Referring Provider Active Start: March 16, 2025 End: March 16, 2025 Team Status: Inactive Member Role/Relationship Status Dates Dr. Ana Laura Burk MD Primary Care Provider Active Start: April 13, 2025 End: April 13, 2025 Dr. Hardy Hernandez MD Attending Provider Active Sta rt: April 13, 2025 End: April 13, 2025 Dr. Hardy Hernandez MD Referring Provider Active Sta rt: April 13, 2025 End: April 13, 2025 Team Status: Inactive Member Role/Relationship Status Dates Dr. Ana Laura Burk MD Primary Care Provider Active Start: April 13, 2025 End: April 13, 2025 Dr. Ana Laura Burk MD Referring Provider Active Start: April 13, 2025 End: April 13, 2025 Dr. Kandy Disla MD Attending Provider Active Start: April 13, 2025 End: April 13, 2025 Team Status: Inactive Member Role/Relationship Status Dates Dr. Ana Laura Burk MD Primary Care Provider Active Start: June 22, 2025 End: June 22, 2025 Dr. Ana Laura Burk MD Referring Provider Active Start: June 22, 2025 End: June 22, 2025 Dr. Kandy Disla MD Attending Provider Active Start: June 22, 2025 End: June 22, 2025 Team Status: Active Member Role/Relationship Status Dates Kena Booth MD Primary care physician Active Team Status: Inactive Member Role/Relationship Status Dates Dr. Ana Laura Burk MD Primary care physician Active Start: June 22, 2025 End: June 22, 2025 Dr. Ana Laura Burk MD Referring Provider Active Start: June 22, 2025 End: June 22, 2025 Dr. Kandy Disla MD Attending physician Active Start: June 22, 2025 End: June 22, 2025 Team Status: Inactive Member Role/Relationship Status Dates Kena Booth MD Primary care physician Active S tart: August 10, 2025 End: August 10, 2025 Kena Booth MD Attending physician Active Star t: August 10, 2025 End: August 10, 2025 Kena Booth MD Referring Provider Active Start : August 10, 2025 End: August 10, 2025 Team Status: Inactive Member Role/Relationship Status Dates Dr. Ana Laura Burk MD Referring Provider Active Start: September 10, 2025 End: September 10, 2025 Dr. Kandy Disla MD Attending physician Active Start: September 10, 2025 End: September 10, 2025 Kena Booth MD Primary care physician Active S tart: September 10, 2025 End: September 10, 2025 Team Status: Active Member Role/Relationship Status Dates Dr. Kandy Disla MD Attending physician Active Start: September 21, 2025 Dr. Kandy Disla MD Referring Provider Active Start: September 21, 2025 Kena Booth MD Primary care physician Active S tart: September 21, 2025 FOR RECORDS PERTAINING TO PATIENTS WHO ARE OR HAVE BEEN ENROLLED IN A CHEMICAL DEPENDENCY/SUBSTANCEABUSE PROGRAM, SOME INFORMATION MAY BE OMITTED. This clinical summary was aggregated from multiple sources. Caution should be exercised in using it in the provision of clinical care. This summary normalizes information from multiple sources, and as a consequence, information in this document may materially change the coding, format and clinical context of patient data. In addition, data may be omitted in some cases. CLINICAL DECISIONS SHOULD BE BASED ON THE PRIMARY CLINICAL RECORDS. [employer] [facility]. provides no warranty or guarantee of the accuracy or completeness of information in this document.
== END | disposition home or self-care (01) ==
LOC: MTRAD 15:14
PROVIDERS: PCP Family Medicine; Referring Provider Family Medicine; Visit Provider Family Medicine
DX: S39.92XA Unspecified injury of lower back, initial encounter (principal)
CPT/HCPCS: 72202